=== PATIENT | female | born 1935 | race Hispanic/Latino ===

== ENCOUNTER 2017-05-01 10:45 | Observation (INO) | payer MEDICARE, BC ==
--- NOTE | 2017-05-01 11:10 | ED PDOC ---
Arrival/HPI - General Historian: Patient - History of Present Illness Time/Duration: 24 hours Symptom Onset: Gradual Symptom Course: Unchanged Quality: Cramping Activities at Onset: Rest - General Chief Complaint: Abdominal Pain Time Seen by Provider: 05/01/17 11:01 - History of Present Illness Narrative History of Present Illness (Text): 05/01/17 11:36 81yo F with PMHx including DVT s/p IVF filter, Paroxysmal A.Fib, Chronic Anemia , Thrombocytopenia, Left Breast CA s/p L Mastectomy here for evaluation of Nausea, vomiting and diarrhea that started yesterday. She states that she has had about 3 episodes of vomiting, and 3 episodes of diarrhea this morning and came to the hospital for further evaluation. Denies bloody or bilious emesis or diarrhea. Also c/o Mild lower abd pain. Denies any recent sick contacts. Denies F/C. No urinary symptoms. Ate cheese sandwich last night, denies eating any spoiled food. Patient lives alone. PMHx: DVT, Paroxysmal A.Fib, Chronic Anemia, Hx of GI bleeding, Thrombocytopenia , Left Breast CA, Arthritis PSHx: IVC Filter, L Mastectomy, Aortic Valve Replacement Social Hx: Lives alone in apartment. Denies Tobacco, Denies ETOH, Denies illicit drugs NKDA (Lexa Garibay) Past Medical History - Provider Review Nursing Documentation Reviewed: Yes - Infectious Disease Hx of Infectious Diseases: None - Tetanus Immunization Tetanus Immunization: Unknown - Cardiac Hx Cardiac Disorders: Yes Hx Cardiac Arrhythmia: Yes Other/Comment: AORTIC VALVE REPLACEMENT - Pulmonary Hx Respiratory Disorders: No - Neurological Hx Neurological Disorder: No - HEENT Hx HEENT Disorder: No - Renal Hx Renal Disorder: No - Endocrine/Metabolic Hx Endocrine Disorders: No - Hematological/Oncological Hx Blood Disorders: Yes Hx Anemia: Yes - Integumentary Hx Dermatological Disorder: No - Musculoskeletal/Rheumatological Hx Musculoskeletal Disorders: Yes Hx Arthritis: Yes - Gastrointestinal Hx Gastrointestinal Disorders: Yes (HX GI BLEED) - Genitourinary/Gynecological Hx Genitourinary Disorders: No - Psychiatric Hx Psychophysiologic Disorder: No Hx Substance Use: No - Surgical History Hx Mastectomy: Yes (LEFT) Hx Open Heart Surgery: Yes Hx Valve Replacement: Yes Other/Comment: IVC FILTER - Anesthesia Hx Anesthesia: Yes Hx Anesthesia Reactions: No Hx Malignant Hyperthermia: No - Suicidal Assessment Feels Threatened In Home Enviroment: No Family/Social History - Physician Review Nursing Documentation Reviewed: Yes Family/Social History: Unknown Family HX Smoking Status: Never Smoked Hx Alcohol Use: No Hx Substance Use: No Hx Substance Use Treatment: No Allergies/Home Meds Allergies/Adverse Reactions: Allergies No Known Allergies Allergy (Verified 05/01/17 10:58) Home Medications: Home Meds Medication Instructions Recorded Confirmed Warfarin Sodium [Coumadin] 0 mg PO DIN 09/17/14 05/01/17 Review of Systems - Physician Review All systems were reviewed & negative as marked: Yes - Review of Systems Constitutional: absent: Weight Change, Fevers Respiratory: Normal. absent: SOB, Cough Cardiovascular: absent: Chest Pain, Edema, Calf Pain Gastrointestinal: Abdominal Pain, Diarrhea, Nausea, Vomiting. absent: Hematochezia, Hematemesis Genitourinary Female: absent: Dysuria, Frequency Physical Exam Vital Signs Reviewed: Yes Temperature: Afebrile Blood Pressure: Normal Pulse: Tachycardic Respiratory Rate: Normal Appearance: Positive for: Well-Appearing, Non-Toxic, Comfortable Pain Distress: Mild Mental Status: Positive for: Alert and Oriented X 3 - Systems Exam Head: Present: Atraumatic, Normocephalic Extroacular Muscles: Present: EOMI Conjunctiva: Present: Normal Mouth: Present: Dry Respiratory/Chest: Present: Clear to Auscultation, Good Air Exchange. No: Accessory Muscle Use, Wheezes Cardiovascular: Present: Normal S1, S2 Abdomen: Present: Tenderness (mild lower abdominal pain), Normal Bowel Sounds. No: Distention, Peritoneal Signs, Rebound, Guarding Upper Extremity: Present: Normal Inspection, Normal ROM. No: Edema Lower Extremity: Present: CALF TENDERNESS (Right calf tenderness), Other (scaly skin bilateral lower extremities. Bilateral foot non-healing ulcers) Neurological: Present: GCS=15, Speech Normal Skin: Present: Warm, Dry Psychiatric: Present: Alert, Oriented x 3 Medical Decision Making ED Course and Treatment: 05/01/17 11:55 81yo F with N/V/D - CBC/CMP/Mg/Phos/Lipase - UA - PT/INR/PTT - Protonix - Zofran - IVF 05/01/17 12:08 - Labs wnl - WBC and Hb stable from previous - Awaiting UA - Awaiting Coags - Mild Hyperbilirubinemia noted 05/01/17 13:08 Upon reevaluation. Patient still with mild abd pain. - will obtain CT Abd/Pelvis w/ IV contrast 05/01/17 13:59 - UA with evidence of a UTI 05/01/17 14:56 - Rocephin given - Dr. Villegas discussed case with Dr. Stone, who agrees for admission and plan. - Discussed findings with patient. Who understands and agrees with plan. 05/01/17 15:38 CT - periportal edema noted. Possible hepatitis or Right Heart failure (Lani, Lexa) A 81 year old female with nausea, non-bilious, non-bloody vomiting and diarrhea. In agreement with resident note, which includes further HPI details. Patient was seen and evaluated with resident, came up with plan and treatment together. UA significant for uti. Patient was tachycardic on arrival and has had persistent vomiting in ED. CT negative for acute pathology. Case discussed with Dr. Stone, who agrees with admission for UTI and persistent vomiting. Antibiotics and ucx sent 05/01/17 15:46 (Luisa Villegas) - Lab Interpretations Lab Results: 05/01/17 11:30 05/01/17 11:30 Lab Results 05/01/17 12:56: Urine Color Yellow, Urine Appearance Clear, Urine pH 6.5, Ur Specific [place] 1.010, Urine Protein Negative, Urine Glucose (UA) Negative, Urine Ketones Negative, Urine Blood Trace-intact H, Urine Nitrate Positive H, Urine Bilirubin Negative, Urine Urobilinogen 0.2, Ur Leukocyte Esterase Moderate H, Urine RBC 0 - 2, Urine WBC 2 - 5, Ur Epithelial Cells 1 - 3, Urine Bacteria Many 05/01/17 12:00: PT 11.4, INR 1.06, APTT 26.7 05/01/17 11:30: Sodium 141, Potassium 4.0, Chloride 102, Carbon Dioxide 29, Anion Gap 14, BUN 11, Creatinine 0.7, Est GFR ( Amer) > 60, Est GFR (Non- Af Amer) > 60, Random Glucose 86, Calcium 9.6, Phosphorus 3.6, Magnesium 2.0, Total Bilirubin 1.4 H, AST 28, ALT 24, Alkaline Phosphatase 65, Total Protein 6.7, Albumin 4.0, Globulin 2.7, Albumin/Globulin Ratio 1.5, Lipase 112 05/01/17 11:30: WBC 3.1 L, RBC 4.00, Hgb 11.7 L, Hct 37.3, MCV 93.3, MCH 29.3, MCHC 31.4, RDW 14.1, Plt Count 76 L, MPV 9.7, Gran % 56.7, Lymph % (Auto) 30.1, [place] % (Auto) 10.7 H, Eos % (Auto) 1.9, Baso % (Auto) 0.6, Gran # 1.75, Lymph # 0.9 L, [place] # 0.3, Eos # 0.1, Baso # 0.02 - RAD Interpretation Radiology Orders: 05/01/17 12:37 ABD & PELVIS IV CONTRAST ONLY [CT] Stat - Medication Orders Current Medication Orders: Warfarin Sodium (Coumadin) 5 mg PO 1800 KHADRA PRN Reason: Protocol Discontinued Medications Sodium Chloride (Sodium Chloride 0.9%) 1,000 mls @ 999 mls/hr IV .Q1H1M STA Stop: 05/01/17 12:23 Last Admin: 05/01/17 11:49 Dose: 999 mls/hr Ceftriaxone Sodium (Rocephin 1 Gram Ivpb) 1 gm in 100 mls @ 200 mls/hr IVPB STAT STA PRN Reason: Protocol Stop: 05/01/17 15:16 Last Admin: 05/01/17 14:53 Dose: 200 mls/hr Iohexol (Omnipaque 350 100 Ml) Confirm Administered Dose 350 mg .ROUTE .STK-MED ONE Stop: 05/01/17 13:19 Ondansetron HCl (Zofran Inj) 4 mg IVP STAT STA Stop: 05/01/17 11:31 Last Admin: 05/01/17 11:49 Dose: 4 mg Pantoprazole Sodium (Protonix Inj) 40 mg IVP STAT STA Stop: 05/01/17 11:24 Last Admin: 05/01/17 11:49 Dose: 40 mg Phenazopyridine HCl (Pyridium) 100 mg PO STAT STA Stop: 05/01/17 14:39 Last Admin: 05/01/17 14:53 Dose: 100 mg - PA / CYBER INSTRUCTOR / Resident Statement / has reviewed & agrees with the documentation as recorded. /DO has examined the patient and agrees with the treatment plan. Disposition/Present on Arrival - Present on Arrival Any Indicators Present on Arrival: No History of DVT/PE: No History of Uncontrolled Diabetes: No Urinary Catheter: No History of Decub. Ulcer: No History Surgical Site Infection Following: None - Disposition Have Diagnosis and Disposition been Completed?: Yes Disposition Time: 14:59 Patient Plan: Admission - Disposition Diagnosis: UTI (urinary tract infection), Vomiting Disposition: HOSPITALIZED Patient Problems: Current Active Problems Problem Status Onset UTI (urinary tract infection) Acute Vomiting Acute Condition: GOOD
[2017-05-01] MEDS ORDERED: Sodium Chloride 0.9% 1,000 ML IV STA (11:23)
[2017-05-01 12:01] LABS: BASO # 0.02 K/mm3 (0.0-2.0); BASO % 0.6 % (0.0-3.0); EOS # 0.1 (0.0-0.7); EOS % 1.9 % (1.5-5.0); GRAN # 1.75 (1.4-6.5); GRAN % 56.7 % (50.0-68.0); HEMATOCRIT 37.3 % (36.0-48.0); LYMPH # 0.9 (1.2-3.4); LYMPH % 30.1 % (22.0-35.0); MEAN CELL VOLUME 93.3 fl (80.0-105.0); MEAN CORPUSCULAR HEMOGLOBIN 29.3 pg (25.0-35.0); MEAN CORPUSCULAR HGB CONC 31.4 g/dl (31.0-37.0); MEAN PLATELET VOLUME 9.7 fl (7.0-11.0); MONO # 0.3 (0.1-0.6); MONO % 10.7 % (1.0-6.0); RED CELL DISTRIBUTION WIDTH 14.1 % (11.5-14.5); WHITE BLOOD COUNT 3.1 10^3/ul (4.5-11.0)
[2017-05-01 12:04] LABS: ALB/GLOB RATIO 1.5 (1.1-1.8); ALKALINE PHOSPHATASE 65 U/L (38-133); ALT/SGPT 24 U/L (7-56); AST/SGOT 28 U/L (15-39); BILIRUBIN,TOTAL 1.4 mg/dL (0.2-1.3); BLOOD UREA NITROGEN 11 mg/dL (7-21); CALCIUM 9.6 mg/dL (8.4-10.5); CARBON DIOXIDE 29 mmol/L (21-33); CHLORIDE 102 mmol/L (98-107); GFR AFRICAN-AMERICAN > 60; GLUCOSE,RANDOM 86 mg/dL (70-110); LIPASE 112 U/L (23-300); PHOSPHOROUS 3.6 mg/dL (2.5-4.5); SODIUM 141 mmol/L (132-148); TOTAL PROTEIN 6.7 g/dL (5.8-8.3)
[2017-05-01 12:28] LABS: INR 1.06 (0.93-1.08); PARTIAL THROMBOPLASTIN TIME 26.7 Seconds (23.7-30.8)
[2017-05-01 12:59] LABS: PH,URINE 6.5 (4.7-8.0); URINE BILIRUBIN NEGATIVE (NEGATIVE); URINE BLOOD TRACE-INTACT (NEGATIVE); URINE GLUCOSE (UA) NEGATIVE (NEGATIVE); URINE KETONE NEGATIVE (NEGATIVE); URINE LEUKOCYTE ESTERASE MODERATE Leu/uL (NEGATIVE); URINE PROTEIN NEGATIVE mg/dL (<30 mg/dL); URINE UROBILINOGEN 0.2 E.U./dL (<1 E.U./dL)
[2017-05-01 13:03] LABS: URINE APPEARANCE CLEAR (CLEAR); URINE COLOR YELLOW (YELLOW)
[2017-05-01 13:17] LABS: URINE BACTERIA MANY (NEG); URINE RBC 0 - 2 /hpf (0-2)
[2017-05-01] MEDS ORDERED: Iohexol 350 MG/100 ML VIAL ONE (13:18)
[2017-05-01] MEDS ORDERED: Ciprofloxacin 400mg/200ml D5W 400 MG/200 ML BAG IVPB STA (14:14)
[2017-05-01] MEDS ORDERED: cefTRIAXone 1 gm 1 GM/100 ML BAG IVPB STA (14:47)
--- NOTE | 2017-05-01 15:16 | CT ---
PROCEDURE: CT Abdomen and Pelvis with contrast HISTORY: abdominal pain COMPARISON: None. TECHNIQUE: Contrast dose: 100 cc of Omni 350 Radiation dose: Total exam DLP = 355 mGy-cm. This CT exam was performed using one or more of the following dose reduction techniques: Automated exposure control, adjustment of the mA and/or kV according to patient size, and/or use of iterative reconstruction technique. FINDINGS: LOWER THORAX: Unremarkable. LIVER: Periportal edema is seen throughout the liver. This is most commonly due to right heart failure. This can also be seen in hepatitis. Clinical correlation is suggested GALLBLADDER AND BILE DUCTS: Gallbladder removed PANCREAS: Unremarkable. No gross lesion or ductal dilatation. SPLEEN: Unremarkable. ADRENALS: Unremarkable. No mass. KIDNEYS AND URETERS: Unremarkable. No hydronephrosis. No solid mass. VASCULATURE: A caval filter is present BOWEL: Unremarkable. No obstruction. No gross mural thickening. APPENDIX: Normal appendix. PERITONEUM: A small amount of ascites is seen in the pelvis LYMPH NODES: Unremarkable. No enlarged lymph nodes. BLADDER: A catheter is seen in the bladder REPRODUCTIVE: Unremarkable. BONES: No acute fracture. OTHER FINDINGS: None. IMPRESSION: Periportal edema is seen throughout the liver. This is most commonly due to right heart failure. This can also be seen in hepatitis. Clinical correlation is suggested
--- NOTE | 2017-05-01 19:13 | CARD ---
APPROVED REPORT EKG Measurement Heart [id number] <Conclusion> Sinus tachycardia Right atrial enlargement Borderline ECG
[2017-05-01] MEDS ORDERED: Sodium Chloride 0.45% 1,000 ML IV SCH (19:15)
[2017-05-01 21:36] VITALS: BMI 20.9
[2017-05-01] MEDS ORDERED: Pneumococcal 23-Valent Vaccine IM ONE (21:37)
--- NOTE | 2017-05-02 05:49 | HP ---
HISTORY OF PRESENT ILLNESS: I was called by the ER to take care of Edilia for a bad urinary tract infection. She is not doing well. I saw her in her room 577, bed 2 this evening. She is an 81-year-old female, who came in for nausea, vomiting, and diarrhea; she had about 3 episodes and she came to the emergency room for further evaluation. Mild lower abdominal pain. Had no urinary symptoms. She ate a cheese sandwich. PAST MEDICAL HISTORY: DVT, paroxysmal atrial fibrillation, chronic anemia, history of GI bleeding, thrombocytopenia, left breast cancer, arthritis. PAST SURGICAL HISTORY: IVC filter, mastectomy left, aortic valve replacement. SOCIAL HISTORY: She lives alone in an apartment. Denies smoking, drinking or drugs. ALLERGIES: NO KNOWN DRUG ALLERGIES. FAMILY HISTORY: There is hypertension in the family. She has arthritis. She feels a little bit weak. She is very thin and frail. She had left mastectomy. MEDICATIONS: She takes Coumadin. REVIEW OF SYSTEMS: No acute vision changes or hearing changes. No sore throat. No chest pain. No palpitation, no calf pain, no edema. No shortness of breath. No cough. No sputum. No anxiety. No depression. She does have abdominal pain, diarrhea, nausea, and vomiting. She denies any problems urinating. No nervousness, no anxiety. PHYSICAL EXAMINATION: VITAL SIGNS: She has 98.7 temperature, 111 pulse, 135/89 blood pressure, 16 respiratory rate, 100% O2 sat on room air. HEENT: Head atraumatic, normocephalic, extraocular muscles are intact. Throat is moist. NECK: Supple. HEART: Regular rate. Normal S1 and S2. LUNGS: Decreased breath sounds, clear to auscultation. No wheezes, no rhonchi, no rales. ABDOMEN: Mild middle lower abdominal tenderness, normal bowel sounds. No distention, no guarding, no rebound. EXTREMITIES: No edema. She has right calf tenderness. Bilateral foot, nonhealing ulcers. I will get podiatry and see her. GCS is 15. SKIN: Warm and dry except for the foot ulcers. NEUROLOGICAL: Alert and oriented x3. She is comfortable in bed at this time. LABORATORY DATA: She has a urine which is positive for nitrites, moderate leukocytes, many bacteria. 141 sodium, potassium 4, BUN 11, creatinine 0.7, GFR greater than 60, sugar is 86. Calcium is 9.6, phosphorus is 3.6, magnesium 2, total bilirubin is 1.4. AST is 28, ALT is 24, alk phos 65, total protein 6.7, albumin is 4. Lipase 112. INR is 1.06. White count is low at 3.1, hemoglobin 11.7, hematocrit 37.3, platelets are 76 low. IMPRESSION: She had a CAT scan of the abdomen and pelvis, periportal edema seen throughout the liver, could be with hepatitis or due to right heart failure. We will do hepatitis screening. She will be on IV fluids, Coumadin, Protonix, Rocephin, and Zofran. She will have a consult with podiatry. We will check her labs tomorrow. Hopefully, she will do well. She is here for UTI, bilateral foot ulcers, nausea and vomiting. Khalif Stone DO
[2017-05-02] MEDS ORDERED: Pantoprazole 40mg/100ml IVPB 40 MG/100 ML BAG IVPB SCH (06:00)
[2017-05-02 07:13] LABS: INR 1.07 (0.93-1.08)
[2017-05-02 07:14] LABS: HEMATOCRIT 39.5 % (36.0-48.0); MEAN CELL VOLUME 93.2 fl (80.0-105.0); MEAN CORPUSCULAR HGB CONC 31.1 g/dl (31.0-37.0); MEAN PLATELET VOLUME 10.1 fl (7.0-11.0); RED CELL DISTRIBUTION WIDTH 14.2 % (11.5-14.5); WHITE BLOOD COUNT 4.2 10^3/ul (4.5-11.0)
[2017-05-02 07:30] LABS: ALB/GLOB RATIO 1.3 (1.1-1.8); ALKALINE PHOSPHATASE 62 U/L (38-133); ALT/SGPT 15 U/L (7-56); AST/SGOT 33 U/L (15-39); BILIRUBIN,TOTAL 1.4 mg/dL (0.2-1.3); BLOOD UREA NITROGEN 6 mg/dL (7-21); CALCIUM 8.7 mg/dL (8.4-10.5); CARBON DIOXIDE 25 mmol/L (21-33); CHLORIDE 108 mmol/L (98-107); GFR AFRICAN-AMERICAN > 60; GLUCOSE,RANDOM 75 mg/dL (70-110); POTASSIUM 4.3 mmol/L (3.6-5.0); SODIUM 140 mmol/L (132-148); TOTAL PROTEIN 6.1 g/dL (5.8-8.3)
[2017-05-02 09:05] VITALS: RESP 20
--- NOTE | 2017-05-02 09:48 | RAD ---
HISTORY: r/o chf COMPARISON: 09/25/2016 FINDINGS: LUNGS: No active pulmonary disease. PLEURA: No significant pleural effusion identified, no pneumothorax apparent. CARDIOVASCULAR: Normal. OSSEOUS STRUCTURES: No significant abnormalities. VISUALIZED UPPER ABDOMEN: Normal. OTHER FINDINGS: None. IMPRESSION: No active disease.
[2017-05-02] MEDS ORDERED: Ammonium Lactate 12% Lotion (225 g) EXT SCH (10:00)
[2017-05-02] MEDS ORDERED: cefTRIAXone 1 gm 1 GM/100 ML BAG IVPB SCH (10:00)
--- NOTE | 2017-05-02 10:17 | DS ---
HISTORY OF PRESENT ILLNESS: She is resting comfortably in bed. She is very hungry this morning. She slept well. She tells me she can walk. Awaiting for Podiatry to look at her feet. We are checking labs this morning. His hepatitis panel and INR pending. She is comfortable, in no acute distress, smiling in bed, better than when she came in. She came in for UTI, nausea, vomiting, and foot ulcer. PHYSICAL EXAMINATION: VITAL SIGNS: She has 97 temp, 75 pulse, 109/70 blood pressure, 18 respiratory rate, 99% sat on room air. HEENT: Head is atraumatic, normocephalic. Throat is moist. NECK: Supple. HEART: Regular. LUNGS: Decreased breath sounds, but clear to auscultation. ABDOMEN: Soft, nontender. Positive bowel sounds. No guarding. No rebound. No CVA tenderness. No palpable masses. EXTREMITIES: No edema of the feet. Needs Podiatry evaluation. MEDICATIONS: She is currently on Coumadin, Protonix, Rocephin, IV fluids, and Zofran. She is not nauseous any more. LABORATORY DATA: She has a 4.2 white count, 12.3 hemoglobin, 39.5 hematocrit with 78 platelets, little bit low. INR is 1.17. She has 141 sodium, potassium is 4, BUN 11, creatinine 0.7. GFR is greater than 60. Sugar is 86. Calcium is 9.6. Phosphorus 3.6. Magnesium is 2. Total bili is 1.4. AST is 20, ALT 24, alk phos 55, total protein 6.7, albumin 4, globulin 2.7, lipase 112. Urine showed moderate leukocytes and many bacteria. No back on the urine. His urine culture is pending. ASSESSMENT AND PLAN: Awaiting for Podiatry to come take a look at her and physical therapy take a look at her and then increase her diet. Physical therapy said she can walk and be safe and Podiatry said she does not need anymore repair of her feet. I will change her to tablets and discharge her for outpatient house calls and care. If they find that we need to keep her on inpatient today and continue therapy in hospital. Await for Podiatry and physical therapy and see if she can eat. Khalif Stone DO [place]
--- NOTE | 2017-05-02 14:02 | CP.PCM.CON ---
<Alejandro Onofre - Last Filed: 05/02/17 13:56> History of Present Illness - History of Present Illness History of Present Illness: 80 y/o female patient was seen at bedside concerning bilateral leg scaling and xerosis with attending Dr. Lowe. The patient has an extensive medical history that includes DVT, chronic atrial fibrillation, history of breast cancer , and chronic anemia, as well as dementia. She denies of any pain to lower extremities. Patient also complains of elongated toenails x10. Patient denies n/ f/v/d/c/sob. Past Patient History - Infectious Disease Hx of Infectious Diseases: None - Tetanus Immunizations Tetanus Immunization: Unknown - Past Social History Smoking Status: Never Smoked - CARDIAC Hx Cardiac Disorders: Yes (ivc filter hx dvt) Hx Hypertension: Yes - PULMONARY Hx Respiratory Disorders: No - NEUROLOGICAL Hx Neurological Disorder: No - HEENT Hx HEENT Problems: No - RENAL Hx Chronic Kidney Disease: No - ENDOCRINE/METABOLIC Hx Endocrine Disorders: No - HEMATOLOGICAL/ONCOLOGICAL Hx Blood Disorders: Yes (thrombocytopenia) Hx Anemia: Yes (blood transfusion) Hx Cancer: Yes (left breast ca with lymph nodes) Hx Chemotherapy: (pt denies chemo and radiation) - INTEGUMENTARY Hx Dermatological Problems: Yes Other/Comment: cellulitis. ble +1 edema brown dry flakey dry discolored skin to lowr legs and feet, crooked toes both feet, small pad under ball of left ft for protection no wound, mid chest healed surgical scar - MUSCULOSKELETAL/RHEUMATOLOGICAL Hx Arthritis: Yes - GASTROINTESTINAL Hx Gastrointestinal Disorders: Yes (HX GI BLEED, weight loss) - GENITOURINARY/GYNECOLOGICAL Hx Genitourinary Disorders: Yes Hx Urinary Tract Infection: Yes - PSYCHIATRIC Hx Substance Use: No - SURGICAL HISTORY Hx Mastectomy: Yes (LEFT) Hx Open Heart Surgery: Yes Hx Valve Replacement: Yes Other/Comment: IVC FILTER - ANESTHESIA Hx Anesthesia: Yes Hx Anesthesia Reactions: No Hx Malignant Hyperthermia: No Meds Allergies/Adverse Reactions: Allergies Allergy/AdvReac Type Severity Reaction Status Date / Time No Known Allergies Allergy Verified 05/01/17 10:58 - Medications Medications: Current Medications Ceftriaxone Sodium (Rocephin 1 Gram Ivpb) 1 gm in 100 mls @ 100 mls/hr IVPB DAILY KHADRA PRN Reason: Protocol Last Admin: 05/02/17 11:18 Dose: 100 mls/hr Lactic Acid (Lac-Hydrin 12% Lotion (225 G)) 0 gm EXT BID KHADRA Last Admin: 05/02/17 11:17 Dose: 1 appl Ondansetron HCl (Zofran Inj) 4 mg IVP Q6H PRN PRN Reason: Nausea/Vomiting Pantoprazole Sodium (Protonix Ec Tab) 40 mg PO 0600 KHADRA Warfarin Sodium (Coumadin) 5 mg PO 1800 KHADRA PRN Reason: Protocol Last Admin: 05/01/17 18:54 Dose: 5 mg Physical Exam - Constitutional Appears: Well, Non-toxic, No Acute Distress - Head Exam Head Exam: ATRAUMATIC - Extremities Exam Additional comments: Bilateral lower extremity exam DERM: No open wound is noted to skin bilateral lower extremities. Dry skin scaling noted to legs bilaterally consistent with Xerosis, elongated toenails noted to hallux and 2nd digits bilaterally. No erythema is noted, No drainage is noted, no sign of acute infections is noted VASC: Pedal pulses non-palpable bilaterally; +2 edema noted at anterior aspects of bilateral legs; normal temperature gradient noted b/l NEURO: Light touch and protective sensation grossly intact - Neurological Exam Neurological exam: Alert, Oriented x3 - Psychiatric Exam Psychiatric exam: Normal Affect, Normal Mood - Skin Skin Exam: Normal Color, Warm Results - Vital Signs Recent Vital Signs: Last Vital Signs Temp 97 F L 05/02/17 08:00 Pulse 74 05/02/17 08:00 Resp 20 05/02/17 08:00 BP 101/56 L 05/02/17 08:00 Pulse Ox 96 05/02/17 08:00 - Labs Result Diagrams: 05/02/17 06:30 05/02/17 06:30 Labs: Laboratory Results - last 24 hr 05/02/17 05/02/17 05/02/17 06:30 06:30 06:30 WBC 4.2 L D RBC 4.24 Hgb 12.3 Hct 39.5 MCV 93.2 MCH 29.0 MCHC 31.1 RDW 14.2 Plt Count 78 L MPV 10.1 PT 11.6 INR 1.07 Sodium 140 Potassium 4.3 Chloride 108 H Carbon Dioxide 25 Anion Gap 11 BUN 6 L Creatinine 0.6 Est GFR ( Amer) > 60 Est GFR (Non-Af Amer) > 60 Random Glucose 75 Calcium 8.7 Total Bilirubin 1.4 H AST 33 ALT 15 Alkaline Phosphatase 62 Total Protein 6.1 Albumin 3.5 Globulin 2.7 Albumin/Globulin Ratio 1.3 Assessment & Plan - Assessment and Plan (Free Text) Assessment: 80 y/o female patient with chronic venous stasis to bilateral lower extremities with accompanying Xerosis and scaling of skin to legs Plan: Patient was seen and evaluated at bedside with attending, Dr. Lowe Labs and vitals were reviewed Ordered Lachydrin cream Continue receiving IV antibiotics, as per ID recommendations Elongated toenails were cut with a large nail nipper upto level of normal length without any incident x4 Podiatry to continue to follow while patient remains in house <Tayler Lowe - Last Filed: 05/13/17 19:32> Results - Vital Signs Recent Vital Signs: Last Vital Signs Temp 98.4 F 05/02/17 16:00 Pulse 72 05/02/17 16:00 Resp 20 05/02/17 16:00 BP 91/54 L 05/02/17 16:00 Pulse Ox 97 05/02/17 16:00 - Labs Result Diagrams: 05/02/17 06:30 05/02/17 06:30 Attending/Attestation - Attestation I have personally seen and examined this patient.: Yes I have fully participated in the care of the patient.: Yes
[2017-05-02 16:47] VITALS: BP 91/54; PULSE 72; TEMP 98.4; O2SAT 97
[2017-05-03] MEDS ORDERED: Pantoprazole 40 mg EC Tab PO SCH (06:00)
[2017-05-03] MEDS ORDERED: Tmp-Smz 800 mg-160 mg DS Tab PO SCH (10:00)
== END 2017-05-02 17:26 | disposition home or self-care (01) ==
LOC: ED 10:45 → INTOOBSV 14:45 → ERH 14:45 → 5RSO 17:01
PROVIDERS: ADMIT Family Medicine; ATTEND Family Medicine
DX: N39.0 Urinary tract infection, site not specified (principal); L97.519 Non-pressure chronic ulcer of other part of right foot with unspecified severity; L97.529 Non-pressure chronic ulcer of other part of left foot with unspecified severity; I48.0 Paroxysmal atrial fibrillation; L60.8 Other nail disorders; D69.6 Thrombocytopenia, unspecified; D64.9 Anemia, unspecified; M19.90 Unspecified osteoarthritis, unspecified site; L85.3 Xerosis cutis; I87.8 Other specified disorders of veins; R11.2 Nausea with vomiting, unspecified; F03.90 Unspecified dementia, unspecified severity, without behavioral disturbance, psychotic disturbance, mood disturbance, and anxiety; Z85.3 Personal history of malignant neoplasm of breast; Z90.12 Acquired absence of left breast and nipple; Z95.2 Presence of prosthetic heart valve; Z86.718 Personal history of other venous thrombosis and embolism; Z79.01 Long term (current) use of anticoagulants
CPT/HCPCS: 11719; 36415; 71010; 74177; 80053; 81001; 83690; 83735; 84100; 85025; 85027; 85610; 85730; 87086; 93005; 96361; 96365; 96375; 96376; 97116; 97161; 99285; C9113; G0378; G8978; G8979; J0696; J2405; J7030; J7040; Q9967

== ENCOUNTER 2017-06-14 15:39 | Inpatient (IN) | payer MEDICARE, BC ==
--- NOTE | 2017-06-14 15:55 | ED PDOC ---
Arrival/HPI - General Chief Complaint: Lower Extremity Problem/Injury Time Seen by Provider: 06/14/17 15:41 Historian: Patient - History of Present Illness Narrative History of Present Illness (Text): 06/14/17 15:54 Information was obtained from patient and her friend. Patient is alert and oriented x 1 (place). This 81 yo F with PMHx including DVT s/p IVF filter, Paroxysmal A.Fib, Chronic Anemia, Thrombocytopenia, Left Breast CA s/p L Mastectomy, presents to this emergency department with her friend complaining of palpitation. Patient stated she was seen by Dr. Pritchett for her regular doctor office visit today. Friend stated Dr. Pritchett recommended patient to come to emergency depart for evaluation of tachycardia. Patient admits decreased appetite, and she is not drinking enough fluids. Patient also noted she has not been taking her medication for "a long time", including her Coumadin. Dr. Pritchett told patient that she hast lost weight. Patient admits one episode of abdominal pain 2-3 days ago. She stated she had a watery BM this morning. Patient lives alone. Patient denies shortness of breast, chest pain, abdominal pain, urinary symptoms , dizziness, YOUNG, or abnormal gait. Dr. Pritchett, PMD Dr. Lowe, Quality Assurance Inspector Dr. Syed, Surgery Time/Duration: Other (see hpi) Context: Home Past Medical History - Provider Review Nursing Documentation Reviewed: Yes - Infectious Disease Hx of Infectious Diseases: None - Tetanus Immunization Tetanus Immunization: Unknown - Cardiac Hx Cardiac Disorders: Yes (ivc filter hx dvt) Hx Hypertension: Yes - Pulmonary Hx Respiratory Disorders: No - Neurological Hx Neurological Disorder: No - HEENT Hx HEENT Disorder: No - Renal Hx Renal Disorder: No - Endocrine/Metabolic Hx Endocrine Disorders: No - Hematological/Oncological Hx Blood Disorders: Yes (thrombocytopenia) Hx Anemia: Yes (blood transfusion) Hx Cancer: Yes (left breast ca with lymph nodes) Hx Chemotherapy: (pt denies chemo and radiation) - Integumentary Hx Dermatological Disorder: Yes Other/Comment: cellulitis. ble +1 edema - Musculoskeletal/Rheumatological Hx Musculoskeletal Disorders: Yes Hx Arthritis: Yes Other/Comment: walks with cane - Gastrointestinal Hx Gastrointestinal Disorders: Yes (HX GI BLEED, weight loss) - Genitourinary/Gynecological Hx Genitourinary Disorders: Yes Hx Urinary Tract Infection: Yes - Psychiatric Hx Psychophysiologic Disorder: No Hx Substance Use: No - Surgical History Hx Mastectomy: Yes (LEFT) Hx Open Heart Surgery: Yes Hx Valve Replacement: Yes Other/Comment: IVC FILTER - Anesthesia Hx Anesthesia: Yes Hx Anesthesia Reactions: No Hx Malignant Hyperthermia: No - Suicidal Assessment Feels Threatened In Home Enviroment: No Family/Social History - Physician Review Nursing Documentation Reviewed: Yes Family/Social History: Other (non contributory) Smoking Status: Never Smoked Hx Alcohol Use: No Hx Substance Use: No Hx Substance Use Treatment: No Allergies/Home Meds Allergies/Adverse Reactions: Allergies No Known Allergies Allergy (Verified 06/14/17 15:47) Home Medications: Home Meds Medication Instructions Recorded Confirmed No Known Home Med 06/14/17 06/14/17 Review of Systems - Review of Systems Constitutional: Normal. absent: Fatigue, Weight Change, Fevers Eyes: Normal ENT: Normal Respiratory: Normal Cardiovascular: Palpitations Gastrointestinal: Normal Genitourinary Female: Normal Musculoskeletal: Normal Skin: Normal Neurological: Normal Endocrine: Normal Hemo/Lymphatic: Normal Psychiatric: Normal Physical Exam Vital Signs Temp Pulse Resp BP Pulse Ox 06/14/17 18:21 89 16 114/72 98 06/14/17 16:58 98.7 F 06/14/17 15:50 98.9 F 145 H 18 138/86 97 Temperature: Afebrile Blood Pressure: Normal Pulse: Tachycardic Respiratory Rate: Normal Appearance: Positive for: Well-Appearing, Non-Toxic, Comfortable, Unkept Pain Distress: None Mental Status: Positive for: other (AAO x 1) - Systems Exam Head: Present: Atraumatic, Normocephalic Pupils: Present: PERRL Extroacular Muscles: Present: EOMI Conjunctiva: Present: Normal Mouth: Present: Moist Mucous Membranes Pharnyx: Present: Normal Nose (Internal): Present: Normal Inspection Neck: Present: Normal Range of Motion. No: Meningeal Signs Respiratory/Chest: Present: Clear to Auscultation, Good Air Exchange. No: Respiratory Distress, Accessory Muscle Use Cardiovascular: Present: Normal S1, S2, Tachycardic. No: Murmurs, Bradycardic, Rub, Gallop, Muffled Abdomen: Present: Normal Bowel Sounds, Scars. No: Tenderness, Distention, Peritoneal Signs, Rebound, Guarding Back: Present: Normal Inspection. No: CVA Tenderness Upper Extremity: Present: Normal Inspection, Normal ROM, NORMAL PULSES (but, tachycardia), Neurovascularly Intact, Capillary Refill < 2s. No: Cyanosis, Edema Lower Extremity: Present: Edema (trace edema), CALF TENDERNESS (right calf, mild tenderness), NORMAL PULSES, Normal ROM, Swelling, Neurovascularly Intact, Capillary Refill < 2 s. No: Temperature Abnormalties Neurological: Present: GCS=15, CN II-XII Intact, Speech Normal, Motor Func Grossly Intact, Normal Sensory Function, Normal Cerebellar Funct, Gait Normal Skin: Present: Warm, Dry, Normal Color, Other (b/l foot and lower legs mycosis) . No: Rashes Psychiatric: Present: Alert, Oriented x 3, Normal Insight, Normal Concentration Medical Decision Making ED Course and Treatment: 06/14/17 16:26 EKG: A-flutter @ 145 bpm 06/14/17 17:39 EKG: A-flutter @ 136 06/14/17 11:[address] Barahona regarding patient arrhythmia, with a-flutter tachycardia. We reviewed labs result, and Venous doppler which demonstrates Right leg DVT, unchanged from previews. Patient complaining of mild shortness of breath earlier today. Patient was given Lovenox. She agrees with admission for Telemetry. 06/15/17 00:28 Patient agreed with admission. Re-evaluation Time: 00:25 Reassessment Condition: Re-examined, Improving,but remains with symptoms - Lab Interpretations Lab Results: 06/14/17 16:15 06/14/17 16:15 Lab Results 06/14/17 16:15: Sodium 141, Chloride 102, Potassium 4.1, Carbon Dioxide 29, Anion Gap 14, BUN 9, Creatinine 0.7, Est GFR ( Amer) > 60, Est GFR (Non- Af Amer) > 60, Random Glucose 88, Calcium 9.4, Phosphorus 3.7, Magnesium 2.1, Total Bilirubin 1.1, AST 27, ALT 24, Alkaline Phosphatase 75, Lactate Dehydrogenase 815 H, Total Creatine Kinase 70, Troponin I < 0.01 D, NT-Pro-B Natriuret Pep 579 H, Total Protein 6.6, Albumin 3.9, Globulin 2.7, Albumin/ Globulin Ratio 1.4 06/14/17 16:15: pO2 50, VBG pH 7.41, VBG pCO2 50.0, VBG HCO3 31.7 H, VBG Total CO2 33.2 H, VBG O2 Sat (Calc) 89.7 H, VBG Base Excess 5.8 H, VBG Potassium 4.1, Sodium 139.0, Chloride 105.0, Glucose 88, Lactate 1.2, FiO2 21.0, Venous Blood Potassium 4.1 06/14/17 16:15: PT 11.4, INR 1.06, APTT 25.8 06/14/17 16:15: WBC 4.1 L, RBC 4.07, Hgb 12.2, Hct 38.5, MCV 94.6, MCH 30.0, MCHC 31.7, RDW 14.5, Plt Count 72 L, MPV 9.6, Gran % 59.4, Lymph % (Auto) 27.7, [place] % (Auto) 10.7 H, Eos % (Auto) 1.5, Baso % (Auto) 0.7, Gran # 2.45, Lymph # 1.1 L, [place] # 0.4, Eos # 0.1, Baso # 0.03 I have reviewed the lab results: Yes Interpretation: Abnormal lab values - RAD Interpretation Narrative RAD Interpretations (Text): 06/14/17 19:10 Accession No. : [id number] Patient Name / ID : NING RICHARDS / [id number] Exam Date : 06/14/2017 16:35:46 ( Approved ) Study Comment : Sex / Age : F / 81Y Creator : David Wilson MD Dictator : David Wilson MD Puncher And Fastener : Gig Tender : David Wilson MD Approver2 : Report Date : 06/14/2017 16:51:53 My Comment : HISTORY: Sepsis Patient COMPARISON: 05/02/2017 FINDINGS: LUNGS: No active pulmonary disease. PLEURA: No significant pleural effusion identified, no pneumothorax apparent. CARDIOVASCULAR: Normal. OSSEOUS STRUCTURES: No significant abnormalities. VISUALIZED UPPER ABDOMEN: Normal. OTHER FINDINGS: None. IMPRESSION: No active disease. 06/14/17 22:28 Formerly [facility] Division of Radiology [address] [place] [address] Tel. no. Patient Name: SUSIE BARCLAY Pt. Address: [address] [place] [address]. Rec #: [id number] [place] [address]: Matt Magana PA-C Pt Order Location: ED : 1935 Female Age: 81 Order #: [id number] Reason for exam: SOB CT Scan ANGIO CHEST PE PROTOCOL Exam Date: 06/14/17 This imaging exam was performed at [facility] ADDENDUM Addendum created by Jonas Mckenzie MD on 06/14/2017 10:10:59 PM EDT Correction: "Posterior to the upper pole the left kidney, there is a 1.7 x 1.2 cm hypodense nodular fluid collection density which appears to be separate of the left kidney.", should say,"Posterior to the upper pole the left kidney, there is a 1.7 x 1.2 cm hypodense fluid collection or cyst." Initial report created on 06/14/2017 9:58:26 PM EDT EXAM: CT Angiography Chest With Intravenous Contrast EXAM DATE/TIME: 06/14/2017 8:09 PM CLINICAL HISTORY: The patient age is 81 years old and is female; Signs and symptoms; Shortness of breath; Additional info: SOB Facility exam id and description: Ct angchestpe angio chest pe protocol TECHNIQUE: Axial computed tomographic angiography images of the chest with intravenous contrast using pulmonary embolism protocol. All CT scans at this facility use one or more dose reduction techniques, viz.: automated exposure control; ma/kV adjustment per patient size (including targeted exams where dose is matched to indication; i.e. head); or iterative reconstruction technique. MIP reconstructed images were created and reviewed. Coronal and sagittal reformatted images were created and reviewed. CONTRAST: 80 mL of OMNI 350 administered intravenously. COMPARISON: CT - CHEST W/O CONTRAST 06/14/2016 5:24:36 PM FINDINGS: Pulmonary arteries: There is dilatation of the pulmonary trunk and main pulmonary arteries, suggestive of pulmonary artery hypertension. The main pulmonary trunk, right/left main pulmonary arteries, and the proximal lobar branches demonstrate no definite intraluminal filling defect to suggest pulmonary embolism. Aorta: Atherosclerotic changes are identified of the thoracic aorta. No thoracic aortic aneurysm. Lungs: Mild patchy atelectatic changes are identified within the right middle lobe, lingula, and both lower lobes. There is a small peripheral consolidation within the lateral aspect of the left upper lobe on series 3 image 48. This is suggestive of atelectatic change or infiltrate. Biapical consolidations are identified, likely due to parenchymal scarring. Pleural space: No significant effusion. No pneumothorax. Heart: No cardiomegaly. No significant pericardial effusion. No evidence of RV dysfunction. Bones/joints: There is increased kyphosis of the thoracic spine with moderate dextroscoliosis. Midline sternotomy wires are identified. Lymph nodes: No enlarged lymph nodes. Gallbladder and bile ducts: Cholecystectomy clips are identified. Kidneys and ureters: Posterior to the upper pole the left kidney, there is a 1.7 x 1.2 cm hypodense nodular fluid collection density which appears to be separate of the left kidney. This is new compared to the previous CT. IMPRESSION: 1. There is dilatation of the pulmonary trunk and main pulmonary arteries, suggestive of pulmonary artery hypertension. 2. No acute pulmonary embolism. 3. Mild patchy atelectatic changes are identified within the right middle lobe, lingula, and both lower lobes. 4. There is a small peripheral consolidation within the lateral aspect of the left upper lobe on series 3 image 48. This is suggestive of atelectatic change or infiltrate, and has mildly progressed. Biapical consolidations are identified, likely due to parenchymal scarring, which have also progressed. 5. Posterior to the upper pole the left kidney, there is a 1.7 x 1.2 cm hypodense nodular fluid collection density which appears to be separate of the left kidney. This is new compared to the previous CT. Nonemergent ultrasonography is recommended. 6. Additional CT findings described above. Addendum Dictated By: Jonas Toribio MD Addendum Dictated Date Time:06/14/1701/24/2210 Addendum Signed by:Jonas Toribio MD Addendum signed Date Time: 06/14/172209 Addendum Transcribed By: ELIZABETH Addendum Transcribed Date Time: 06/14/1701/24/2210 RADHA/GORDO EXAM: CT Angiography Chest With Intravenous Contrast EXAM DATE/TIME: 06/14/2017 8:09 PM CLINICAL HISTORY: The patient age is 81 years old and is female; Signs and symptoms; Shortness of breath; Additional info: SOB Facility exam id and description: Ct replaced by [facility] angio chest pe protocol TECHNIQUE: Axial computed tomographic angiography images of the chest with intravenous contrast using pulmonary embolism protocol. All CT scans at this facility use one or more dose reduction techniques, viz.: automated exposure control; ma/kV adjustment per patient size (including targeted exams where dose is matched to indication; i.e. head); or iterative reconstruction technique. MIP reconstructed images were created and reviewed. Coronal and sagittal reformatted images were created and reviewed. CONTRAST: 80 mL of OMNI 350 administered intravenously. COMPARISON: CT - CHEST W/O CONTRAST 06/14/2016 5:24:36 PM FINDINGS: Pulmonary arteries: There is dilatation of the pulmonary trunk and main pulmonary arteries, suggestive of pulmonary artery hypertension. The main pulmonary trunk, right/left main pulmonary arteries, and the proximal lobar branches demonstrate no definite intraluminal filling defect to suggest pulmonary embolism. Aorta: Atherosclerotic changes are identified of the thoracic aorta. No thoracic aortic aneurysm. Lungs: Mild patchy atelectatic changes are identified within the right middle lobe, lingula, and both lower lobes. There is a small peripheral consolidation within the lateral aspect of the left upper lobe on series 3 image 48. This is suggestive of atelectatic change or infiltrate. Biapical consolidations are identified, likely due to parenchymal scarring. Pleural space: No significant effusion. No pneumothorax. Heart: No cardiomegaly. No significant pericardial effusion. No evidence of RV dysfunction. Bones/joints: There is increased kyphosis of the thoracic spine with moderate dextroscoliosis. Midline sternotomy wires are identified. Lymph nodes: No enlarged lymph nodes. Gallbladder and bile ducts: Cholecystectomy clips are identified. Kidneys and ureters: Posterior to the upper pole the left kidney, there is a 1.7 x 1.2 cm hypodense nodular fluid collection density which appears to be separate of the left kidney. This is new compared to the previous CT. IMPRESSION: 1. There is dilatation of the pulmonary trunk and main pulmonary arteries, suggestive of pulmonary artery hypertension. 2. No acute pulmonary embolism. 3. Mild patchy atelectatic changes are identified within the right middle lobe, lingula, and both lower lobes. 4. There is a small peripheral consolidation within the lateral aspect of the left upper lobe on series 3 image 48. This is suggestive of atelectatic change or infiltrate, and has mildly progressed. Biapical consolidations are identified, likely due to parenchymal scarring, which have also progressed. 5. Posterior to the upper pole the left kidney, there is a 1.7 x 1.2 cm hypodense nodular fluid collection density which appears to be separate of the left kidney. This is new compared to the previous CT. Nonemergent ultrasonography is recommended. 6. Additional CT findings described above. Dictated By: Jonas Mckenzie MD, MD Dictated Date/Time: 06/14/172157 Signed By: Jonas Toribio MD Date Signed: 2157 Transcribed By: ELIZABETH Transcribe Date/Time : 06/14/172157 RADHA/GORDO 06/14/17 22:33 Formerly [facility] Division of Radiology [address] [place] [address] Tel. no. Patient Name: SUSIE BARCLAY Pt. Address: [address] [place] [address] Rec #: [id number] [place] [address]: Matt Magana PA-C Pt Order Location: ED : 1935 Female Age: 81 Order #: [id number] Reason for exam: abdom. pain CT Scan ABD PELVIS IV CONTRAST ONLY Exam Date: 06/14/17 This imaging exam was performed at [facility] EXAM: CT Abdomen and Pelvis With Intravenous Contrast EXAM DATE/TIME: 06/14/2017 5:17 PM CLINICAL HISTORY: The patient age is 81 years old and is female; Pain; Abdominal pain; Additional info: Abdom. Pain Facility exam id and description: Ct abdpelciv abd pelvis iv contrast only TECHNIQUE: Axial computed tomography images of the abdomen and pelvis with intravenous contrast. All CT scans at this facility use one or more dose reduction techniques, viz.: automated exposure control; ma/kV adjustment per patient size (including targeted exams where dose is matched to indication; i.e. head); or iterative reconstruction technique. Coronal and sagittal reformatted images were created and reviewed. CONTRAST: 66 mL of OMNI 350 administered intravenously. COMPARISON: CT - ABD PELVIS IV CONTRAST ONLY 05/01/2017 1:33:30 PM FINDINGS: Lower thorax: See CT chest report from the same day. ABDOMEN: Liver: A metallic focus or clip is identified within the right hepatic lobe inferiorly. The previously described periportal edema has improved. Mild intrahepatic biliary dilatation is identified. Gallbladder and bile ducts: Surgical clips are identified within the gallbladder fossa, compatible with cholecystectomy. Pancreas: Atrophic changes are noted of the pancreas. Spleen: No splenomegaly. Adrenals: No mass. Kidneys and ureters: Adjacent to the upper pole the right kidney, there is a hypodense fluid collection or elongated cyst measuring 2.1 x 1.0 cm. This is new compared to the prior study. There is a hypodense mildly complex cyst at the lower pole of the right kidney again visualized, with internal septation. This measures 3.5 x 4.2 cm. There is a tiny possible additional cysts at the upper pole the right kidney. Stomach and bowel: There is gaseous distention of small and large bowel, suggestive of ileus. This is a progression. Postoperative changes are identified in the region of the cecum. Appendix: Not visualized. PELVIS: Bladder: The bladder is distended. Reproductive: Unremarkable as visualized. ABDOMEN and PELVIS: Intraperitoneal space: No free air. Bones/joints: There is moderate levoscoliosis of the lumbar spine. Hypertrophic degenerative changes are noted within the spine. Soft tissues: There is swelling of the subcutaneous tissues of the pelvis and proximal thighs. Vasculature: There is an IVC filter. Atherosclerotic changes are identified of the abdominal aorta, iliac arteries, and visualized femoral arteries. No abdominal aortic aneurysm. Lymph nodes: No enlarged lymph nodes. IMPRESSION: 1. There is gaseous distention of small and large bowel, suggestive of ileus. This is a progression. 2. Adjacent to the upper pole the right kidney, there is a hypodense fluid collection or elongated cyst measuring 2.1 x 1.0 cm. This is new compared to the prior study. 3. There is a hypodense mildly complex cyst at the lower pole of the right kidney again visualized, with internal septation. 4. The bladder is distended. 5. The previously described periportal edema has improved. Mild intrahepatic biliary dilatation is identified. 6. Incidental/non-acute findings are described above. Dictated By: Jonas Mckenzie MD, MD Dictated Date/Time: 06/14/172210 Signed By: Jonas Toribio MD Date Signed: 2210 Transcribed By: ELIZABETH Transcribe Date/Time : 06/14/172210 Radiology Orders: 06/14/17 16:01 CHEST PORTABLE [RAD] Stat 06/14/17 16:23 DUPLEX LOWER EXTRM VEIN BILAT [US] Stat 06/14/17 17:17 ABD & PELVIS IV CONTRAST ONLY [CT] Stat 06/14/17 20:09 ANGIO CHEST PE PROTOCOL [CT] Stat - EKG Interpretation Interpreted by ED Physician: Yes (a-flutter @ 145 bpm. ) Type: 12 lead EKG Comparison: No previous EKG avail. - Medication Orders Current Medication Orders: Discontinued Medications Enoxaparin Sodium (Lovenox) 54 mg SC STAT STA PRN Reason: Protocol Stop: 06/14/17 21:36 Sodium Chloride (Sodium Chloride 0.9%) 500 mls @ 999 mls/hr IV .Q31M STA Stop: 06/14/17 16:54 Last Admin: 06/14/17 16:45 Dose: 999 mls/hr eMAR Start Stop Document 06/14/17 16:45 (Rec: 06/14/17 16:45 [id number]) Intravenous Solution Start Date 06/14/17 Start Time 16:45 End Date 06/14/17 End time 18:19 Total Infusion Time 94 Disposition/Present on Arrival - Present on Arrival Any Indicators Present on Arrival: No History of DVT/PE: Yes History of Uncontrolled Diabetes: No Urinary Catheter: No History of Decub. Ulcer: No History Surgical Site Infection Following: None - Disposition Have Diagnosis and Disposition been Completed?: Yes Diagnosis: Atrial flutter by electrocardiogram, Cutaneous mycosis, Tachycardia Disposition: HOSPITALIZED Disposition Time: 00:29 Patient Plan: Admission Condition: STABLE
[2017-06-14] MEDS ORDERED: Sodium Chloride 0.9% 500 ML IV STA (16:24)
[2017-06-14 16:52] LABS: BASO # 0.03 K/mm3 (0.0-2.0); BASO % 0.7 % (0.0-3.0); EOS # 0.1 (0.0-0.7); EOS % 1.5 % (1.5-5.0); GRAN # 2.45 (1.4-6.5); GRAN % 59.4 % (50.0-68.0); HEMATOCRIT 38.5 % (36.0-48.0); LYMPH # 1.1 (1.2-3.4); LYMPH % 27.7 % (22.0-35.0); MEAN CELL VOLUME 94.6 fl (80.0-105.0); MEAN CORPUSCULAR HGB CONC 31.7 g/dl (31.0-37.0); MEAN PLATELET VOLUME 9.6 fl (7.0-11.0); MONO # 0.4 (0.1-0.6); MONO % 10.7 % (1.0-6.0); RED CELL DISTRIBUTION WIDTH 14.5 % (11.5-14.5); WHITE BLOOD COUNT 4.1 10^3/ul (4.5-11.0)
--- NOTE | 2017-06-14 16:53 | RAD ---
HISTORY: Sepsis Patient COMPARISON: 05/02/2017 FINDINGS: LUNGS: No active pulmonary disease. PLEURA: No significant pleural effusion identified, no pneumothorax apparent. CARDIOVASCULAR: Normal. OSSEOUS STRUCTURES: No significant abnormalities. VISUALIZED UPPER ABDOMEN: Normal. OTHER FINDINGS: None. IMPRESSION: No active disease.
[2017-06-14 17:01] LABS: INR 1.06 (0.93-1.08); PARTIAL THROMBOPLASTIN TIME 25.8 Seconds (23.7-30.8)
[2017-06-14 17:03] LABS: VENOUS BLOOD GAS BASE EXCESS 5.8 mmol/L (0.0-2.0); VENOUS BLOOD PH 7.41 (7.32-7.43)
[2017-06-14 17:10] LABS: ALB/GLOB RATIO 1.4 (1.1-1.8); ALKALINE PHOSPHATASE 75 U/L (38-126); ALT/SGPT 24 U/L (7-56); AST/SGOT 27 U/L (14-36); BILIRUBIN,TOTAL 1.1 mg/dL (0.2-1.3); BLOOD UREA NITROGEN 9 mg/dL (7-21); CALCIUM 9.4 mg/dL (8.4-10.5); CARBON DIOXIDE 29 mmol/L (21-33); CHLORIDE 102 mmol/L (98-107); GFR AFRICAN-AMERICAN > 60; GLUCOSE,RANDOM 88 mg/dL (70-110); MAGNESIUM 2.1 mg/dL (1.7-2.2); PHOSPHOROUS 3.7 mg/dL (2.5-4.5); POTASSIUM 4.1 mmol/L (3.6-5.0); SODIUM 141 mmol/L (132-148); TOTAL PROTEIN 6.6 g/dL (5.8-8.3)
[2017-06-14 17:23] LABS: TROPONIN I < 0.01 ng/mL
[2017-06-14] MEDS ORDERED: Enoxaparin 60 mg Syringe SC STA ×2 (21:24→21:35)
--- NOTE | 2017-06-14 21:58 | CT ---
EXAM: CT Angiography Chest With Intravenous Contrast EXAM DATE/TIME: 06/14/2017 8:09 PM CLINICAL HISTORY: The patient age is 81 years old and is female; Signs and symptoms; Shortness of breath; Additional info[place] [facility] [place] exam id and description: [facility] angio chest pe protocol TECHNIQUE: Axial computed tomographic angiography images of the chest with intravenous contrast using pulmonary embolism protocol. All CT scans at this facility use one or more dose reduction techniques, viz.: automated exposure control; ma/kV adjustment per patient size (including targeted exams where dose is matched to indication; i.e. head); or iterative reconstruction technique. MIP reconstructed images were created and reviewed. Coronal and sagittal reformatted images were created and reviewed. CONTRAST: 80 mL of OMNI 350 administered intravenously. COMPARISON: CT - CHEST W/O CONTRAST 06/14/2016 5:24:36 PM FINDINGS: Pulmonary arteries: There is dilatation of the pulmonary trunk and main pulmonary arteries, suggestive of pulmonary artery hypertension. The main pulmonary trunk, right/left main pulmonary arteries, and the proximal lobar branches demonstrate no definite intraluminal filling defect to suggest pulmonary embolism. Aorta: Atherosclerotic changes are identified of the thoracic aorta. No thoracic aortic aneurysm. Lungs: Mild patchy atelectatic changes are identified within the right middle lobe, lingula, and both lower lobes. There is a small peripheral consolidation within the lateral aspect of the left upper lobe on series 3 image 48. This is suggestive of atelectatic change or infiltrate. Biapical consolidations are identified, likely due to parenchymal scarring. Pleural space: No significant effusion. No pneumothorax. Heart: No cardiomegaly. No significant pericardial effusion. No evidence of RV dysfunction. Bones/joints: There is increased kyphosis of the thoracic spine with moderate dextroscoliosis. Midline sternotomy wires are identified. Lymph nodes: No enlarged lymph nodes. Gallbladder and bile ducts: Cholecystectomy clips are identified. Kidneys and ureters: Posterior to the upper pole the left kidney, there is a 1.7 x 1.2 cm hypodense nodular fluid collection density which appears to be separate of the left kidney. This is new compared to the previous CT. IMPRESSION: 1. There is dilatation of the pulmonary trunk and main pulmonary arteries, suggestive of pulmonary artery hypertension. 2. No acute pulmonary embolism. 3. Mild patchy atelectatic changes are identified within the right middle lobe, lingula, and both lower lobes. 4. There is a small peripheral consolidation within the lateral aspect of the left upper lobe on series 3 image 48. This is suggestive of atelectatic change or infiltrate, and has mildly progressed. Biapical consolidations are identified, likely due to parenchymal scarring, which have also progressed. 5. Posterior to the upper pole the left kidney, there is a 1.7 x 1.2 cm hypodense nodular fluid collection density which appears to be separate of the left kidney. This is new compared to the previous CT. Nonemergent ultrasonography is recommended. 6. Additional CT findings described above.
--- NOTE | 2017-06-14 22:11 | CT ---
EXAM: CT Abdomen and Pelvis With Intravenous Contrast EXAM DATE/TIME: 06/14/2017 5:17 PM CLINICAL HISTORY: The patient age is 81 years old and is female; Pain; Abdominal pain; Additional info: Abdom. Pain Facility exam id and description: Ct abdpelciv abd pelvis iv contrast only TECHNIQUE: Axial computed tomography images of the abdomen and pelvis with intravenous contrast. All CT scans at this facility use one or more dose reduction techniques, viz.: automated exposure control; ma/kV adjustment per patient size (including targeted exams where dose is matched to indication; i.e. head); or iterative reconstruction technique. Coronal and sagittal reformatted images were created and reviewed. CONTRAST: 66 mL of OMNI 350 administered intravenously. COMPARISON: CT - ABD PELVIS IV CONTRAST ONLY 05/01/2017 1:33:30 PM FINDINGS: Lower thorax: See CT chest report from the same day. ABDOMEN: Liver: A metallic focus or clip is identified within the right hepatic lobe inferiorly. The previously described periportal edema has improved. Mild intrahepatic biliary dilatation is identified. Gallbladder and bile ducts: Surgical clips are identified within the gallbladder fossa, compatible with cholecystectomy. Pancreas: Atrophic changes are noted of the pancreas. Spleen: No splenomegaly. Adrenals: No mass. Kidneys and ureters: Adjacent to the upper pole the right kidney, there is a hypodense fluid collection or elongated cyst measuring 2.1 x 1.0 cm. This is new compared to the prior study. There is a hypodense mildly complex cyst at the lower pole of the right kidney again visualized, with internal septation. This measures 3.5 x 4.2 cm. There is a tiny possible additional cysts at the upper pole the right kidney. Stomach and bowel: There is gaseous distention of small and large bowel, suggestive of ileus. This is a progression. Postoperative changes are identified in the region of the cecum. Appendix: Not visualized. PELVIS: Bladder: The bladder is distended. Reproductive: Unremarkable as visualized. ABDOMEN and PELVIS: Intraperitoneal space: No free air. Bones/joints: There is moderate levoscoliosis of the lumbar spine. Hypertrophic degenerative changes are noted within the spine. Soft tissues: There is swelling of the subcutaneous tissues of the pelvis and proximal thighs. Vasculature: There is an IVC filter. Atherosclerotic changes are identified of the abdominal aorta, iliac arteries, and visualized femoral arteries. No abdominal aortic aneurysm. Lymph nodes: No enlarged lymph nodes. IMPRESSION: 1. There is gaseous distention of small and large bowel, suggestive of ileus. This is a progression. 2. Adjacent to the upper pole the right kidney, there is a hypodense fluid collection or elongated cyst measuring 2.1 x 1.0 cm. This is new compared to the prior study. 3. There is a hypodense mildly complex cyst at the lower pole of the right kidney again visualized, with internal septation. 4. The bladder is distended. 5. The previously described periportal edema has improved. Mild intrahepatic biliary dilatation is identified. 6. Incidental/non-acute findings are described above.
[2017-06-15] MEDS ORDERED: cefTRIAXone 1 gm 1 GM/100 ML BAG IVPB STA (00:57)
[2017-06-15] MEDS ORDERED: Vancomycin 1gm in NS 250ml 1 GM/250 ML BAG IVPB STA (00:58)
--- NOTE | 2017-06-15 01:40 | CP.PCM.HP ---
<Adonis Soares - Last Filed: 06/15/17 03:06> History of Present Illness - History of Present Illness History of Present Illness: Chief Complaint Left lower extremity pain HPI Patient is an 81 year old female with a past medical history of DVT s/p IVC filter,bioprosthetic aortic valve replacement, paroxysmal atrial fibrillation, chronic anemia, thrombocytopenia, left breast ca s/p L mastectomy, presenting to [facility] on 06/14/17 who was seen in office and sent by her PMD Dr. Pritchett for evaluation of feet and tachycardia. Patient states that the pain in her feet has been present for years however the pain recently worsened which is why she decided to see her PMD today. Patient states she has not taken any of her medications for several months. Patient denies shortness of breath, chest pain, abdominal pain, dysuria, dizziness, headache. PMD: Dr. Pritchett Surgical history: Left mastectomy, bioproesthetic aortic valve replacement, IVC filter s/p DVT Allergies: NKDA Social history: denies tobacco use, alcohol consumption, illicit drug use Present on Admission - Present on Admission Any Indicators Present on Admission: No Review of Systems - Constitutional Constitutional: absent: Chills, Fever, Headache - EENT Eyes: absent: Blurred Vision, Change in Vision Ears: absent: Decreased Hearing, Ear Discharge - Cardiovascular Cardiovascular: absent: Chest Pain, Dyspnea, Palpitations - Respiratory Respiratory: absent: Cough, Dyspnea, Wheezing - Gastrointestinal Gastrointestinal: absent: Abdominal Pain, Diarrhea, Nausea, Vomiting - Genitourinary Genitourinary: absent: Difficulty Urinating, Dysuria - Musculoskeletal Musculoskeletal: Deformity (B/L toe deformity). absent: Back Pain, Numbness, Tingling - Neurological Neurological: absent: Dizziness, Numbness, Radicular Pain Past Patient History - Infectious Disease Hx of Infectious Diseases: None - Tetanus Immunizations Tetanus Immunization: Unknown - Past Social History Smoking Status: Never Smoked - CARDIAC Hx Cardiac Disorders: Yes (ivc filter hx dvt) Hx Hypertension: Yes - PULMONARY Hx Respiratory Disorders: No - NEUROLOGICAL Hx Neurological Disorder: No - HEENT Hx HEENT Problems: No - RENAL Hx Chronic Kidney Disease: No - ENDOCRINE/METABOLIC Hx Endocrine Disorders: No - HEMATOLOGICAL/ONCOLOGICAL Hx Blood Disorders: Yes (thrombocytopenia) Hx Anemia: Yes (blood transfusion) Hx Cancer: Yes (left breast ca with lymph nodes) Hx Chemotherapy: (pt denies chemo and radiation) - INTEGUMENTARY Hx Dermatological Problems: Yes Other/Comment: cellulitis. ble +1 edema - MUSCULOSKELETAL/RHEUMATOLOGICAL Hx Musculoskeletal Disorders: Yes Hx Arthritis: Yes Other/Comment: walks with cane - GASTROINTESTINAL Hx Gastrointestinal Disorders: Yes (HX GI BLEED, weight loss) - GENITOURINARY/GYNECOLOGICAL Hx Genitourinary Disorders: Yes Hx Urinary Tract Infection: Yes - PSYCHIATRIC Hx Psychophysiologic Disorder: No Hx Substance Use: No - SURGICAL HISTORY Hx Mastectomy: Yes (LEFT) Hx Open Heart Surgery: Yes Hx Valve Replacement: Yes Other/Comment: IVC FILTER - ANESTHESIA Hx Anesthesia: Yes Hx Anesthesia Reactions: No Hx Malignant Hyperthermia: No Meds Allergies/Adverse Reactions: Allergies Allergy/AdvReac Type Severity Reaction Status Date / Time No Known Allergies Allergy Verified 06/14/17 15:47 Physical Exam - Constitutional Appears: Non-toxic - Head Exam Head Exam: ATRAUMATIC, NORMAL INSPECTION, NORMOCEPHALIC - Eye Exam Eye Exam: EOMI, Normal appearance Pupil Exam: NORMAL ACCOMODATION - ENT Exam ENT Exam: Mucous Membranes Moist, Normal Exam - Neck Exam Neck exam: Positive for: Normal Inspection - Respiratory Exam Respiratory Exam: Clear to Auscultation Bilateral, NORMAL BREATHING PATTERN - Cardiovascular Exam Cardiovascular Exam: REGULAR RHYTHM, +S1, +S2 Additional comments: Old scar on chest wall s/p aortic valve replacement - GI/Abdominal Exam GI & Abdominal Exam: Normal Bowel Sounds, Soft - Expanded Lower Extremities Exam Left Lower Leg Exam: erythema (of both lower legs noted; skin in this area is scaly) , tenderness Ankle exam: deformity (scab behind right lateral malleolus), erythema (B/L ankles), tenderness (B/L ankles) Foot/Toe exam: deformity (B/L toe deformities with fungal infection between toes , DP pulses faintly felt bilaterally), erythema (B/L), tenderness (B/L) - Back Exam Back exam: absent: NORMAL INSPECTION (kyphosis) - Neurological Exam Neurological exam: Alert, CN II-XII Intact, Oriented x3 Results - Vital Signs Recent Vital Signs: Last Vital Signs Temp 98.7 F 06/14/17 16:58 Pulse 89 06/14/17 18:21 Resp 16 06/14/17 18:21 BP 114/72 10/05/17 18:21 Pulse Ox 98 06/14/17 18:21 - Labs Result Diagrams: 06/14/17 16:15 06/14/17 16:15 Assessment & Plan - Assessment and Plan (Free Text) Plan: Assessment 81 year old female presenting with left leg pain Plan 1. B/L Lower Extremity Cellulitus and fungal pedal infection - Vancomycin - Rocephin - ID consulted 2. Chronic DVT of left leg - Lovenox started 3. Atrial Flutter - Resolved after IVF were administered 4. Thrombocytopenia - Patient has baseline thrombocytopenia, continue to trend. Consult if needed. 5. Peripheral Arterial Disease - Arterial doppler studies - Tylenol for pain control GI prophylaxis -Protonix <Kimberly Barahona - Last Filed: 06/15/17 03:12> Results - Vital Signs Recent Vital Signs: Last Vital Signs Temp 98.7 F 06/14/17 16:58 Pulse 89 06/14/17 18:21 Resp 16 06/14/17 18:21 BP 114/72 06/14/17 18:21 Pulse Ox 98 06/14/17 18:21 - Labs Result Diagrams: 06/14/17 16:15 06/14/17 16:15 Labs: Laboratory Results - last 24 hr 06/15/17 06/15/17 01:30 01:32 Troponin I 0.02 D Urine Color Yellow Urine Appearance Clear Urine pH 7.5 Ur Specific [place] <= 1.005 Urine Protein Negative Urine Glucose (UA) Negative Urine Ketones Negative Urine Blood Negative Urine Nitrate Negative Urine Bilirubin Negative Urine Urobilinogen 0.2 Ur Leukocyte Esterase Negative Attending/Attestation - Attestation I have personally seen and examined this patient.: Yes I have fully participated in the care of the patient.: Yes I have reviewed all pertinent clinical information: Yes Notes (Text): 06/15/17 03:11 Agree with documentation and plan.
[2017-06-15 01:46] LABS: PH,URINE 7.5 (4.7-8.0); URINE BILIRUBIN NEGATIVE (NEGATIVE); URINE BLOOD NEGATIVE (NEGATIVE); URINE GLUCOSE (UA) NEGATIVE (NEGATIVE); URINE KETONE NEGATIVE (NEGATIVE); URINE LEUKOCYTE ESTERASE NEGATIVE Leu/uL (NEGATIVE); URINE PROTEIN NEGATIVE mg/dL (<30 mg/dL); URINE UROBILINOGEN 0.2 E.U./dL (<1 E.U./dL)
[2017-06-15 01:50] LABS: URINE APPEARANCE CLEAR (CLEAR); URINE COLOR YELLOW (YELLOW)
[2017-06-15 03:18] VITALS: BMI 16.7
[2017-06-15 07:11] LABS: BASO # 0.01 K/mm3 (0.0-2.0); BASO % 0.2 % (0.0-3.0); GRAN # 3.33 (1.4-6.5); GRAN % 82.3 % (50.0-68.0); HEMATOCRIT 37.1 % (36.0-48.0); LYMPH # 0.4 (1.2-3.4); LYMPH % 9.1 % (22.0-35.0); MEAN CELL VOLUME 94.9 fl (80.0-105.0); MEAN CORPUSCULAR HEMOGLOBIN 29.2 pg (25.0-35.0); MEAN CORPUSCULAR HGB CONC 30.7 g/dl (31.0-37.0); MEAN PLATELET VOLUME 10.1 fl (7.0-11.0); MONO # 0.3 (0.1-0.6); MONO % 7.4 % (1.0-6.0); RED CELL DISTRIBUTION WIDTH 14.6 % (11.5-14.5); WHITE BLOOD COUNT 4.1 10^3/ul (4.5-11.0)
[2017-06-15 07:15] LABS: ALB/GLOB RATIO 1.3 (1.1-1.8); ALKALINE PHOSPHATASE 59 U/L (38-126); ALT/SGPT 25 U/L (7-56); AST/SGOT 24 U/L (14-36); BLOOD UREA NITROGEN 6 mg/dL (7-21); CALCIUM 8.6 mg/dL (8.4-10.5); CARBON DIOXIDE 29 mmol/L (21-33); CHLORIDE 107 mmol/L (98-107); GFR AFRICAN-AMERICAN > 60; GLUCOSE,RANDOM 84 mg/dL (70-110); POTASSIUM 3.5 mmol/L (3.6-5.0); SODIUM 144 mmol/L (132-148); TOTAL PROTEIN 5.4 g/dL (5.8-8.3)
[2017-06-15 07:25] LABS: TROPONIN I 0.02 ng/mL
[2017-06-15] MEDS ORDERED: Potassium Chloride 40 mEq/30 ml LIQ UD PO ONE (08:50)
[2017-06-15] MEDS: Enoxaparin 60 mg Syringe SC SCH ×2 (10:37→22:51)
[2017-06-15] MEDS: cefTRIAXone 1 gm 1 GM/100 ML BAG IVPB SCH (10:40)
[2017-06-15] MEDS: Vancomycin 1gm in NS 250ml 1 GM/250 ML BAG IVPB SCH (10:41)
--- NOTE | 2017-06-15 14:06 | CP.PCM.CON ---
History of Present Illness - History of Present Illness History of Present Illness: 81 year old female with PMH of bioprosthetic aortic valve replacement, DVT S/P IVC filter placement, paroxysmal atrial fibrillation, chronic anemia, left breast CA S/P left mastectomy, was brought in to [facility] because of continued skin changes on both her feet and legs. The patient is also noted to have tachycardia is also being evaluated for this. She denies specific trauma to the legs, denies animal contacts, no soaking her legs or feet in water , denies fever or chills, no nausea or vomiting, no abdominal pain, no diarrhea , no dysuria, no headache or dizziness, no chest pain, no SOB. Infectious Diseases consult is requested to further evaluate and manage. Review of Systems - Review of Systems All systems: reviewed and no additional remarkable complaints except (as per HPI ) Past Patient History - Infectious Disease Hx of Infectious Diseases: None - Tetanus Immunizations Tetanus Immunization: Unknown - Past Social History Smoking Status: Never Smoked - CARDIAC Hx Cardiac Disorders: Yes (ivc filter hx dvt) Hx Hypertension: Yes - PULMONARY Hx Respiratory Disorders: No - NEUROLOGICAL Hx Neurological Disorder: No - HEENT Hx HEENT Problems: No - RENAL Hx Chronic Kidney Disease: No - ENDOCRINE/METABOLIC Hx Endocrine Disorders: No - HEMATOLOGICAL/ONCOLOGICAL Hx Blood Disorders: Yes (thrombocytopenia) Hx Anemia: Yes (blood transfusion) Hx Cancer: Yes (left breast ca with lymph nodes) Hx Chemotherapy: (pt denies chemo and radiation) - INTEGUMENTARY Hx Dermatological Problems: Yes Other/Comment: cellulitis. ble +1 edema - MUSCULOSKELETAL/RHEUMATOLOGICAL Hx Musculoskeletal Disorders: Yes Hx Arthritis: Yes Other/Comment: walks with cane - GASTROINTESTINAL Hx Gastrointestinal Disorders: Yes (HX GI BLEED, weight loss) - GENITOURINARY/GYNECOLOGICAL Hx Genitourinary Disorders: Yes Hx Urinary Tract Infection: Yes - PSYCHIATRIC Hx Psychophysiologic Disorder: No Hx Substance Use: No - SURGICAL HISTORY Hx Mastectomy: Yes (LEFT) Hx Open Heart Surgery: Yes Hx Valve Replacement: Yes Other/Comment: IVC FILTER - ANESTHESIA Hx Anesthesia: Yes Hx Anesthesia Reactions: No Hx Malignant Hyperthermia: No Meds Allergies/Adverse Reactions: Allergies Allergy/AdvReac Type Severity Reaction Status Date / Time No Known Allergies Allergy Verified 06/14/17 15:47 - Medications Medications: Current Medications Acetaminophen (Tylenol 325mg Tab) 650 mg PO Q6H PRN PRN Reason: Fever >100.4 F Enoxaparin Sodium (Lovenox) 54 mg SC Q12H KHADRA PRN Reason: Protocol Pantoprazole Sodium (Protonix Inj) 40 mg IVP DAILY [facility] Physical Exam - Constitutional Appears: Non-toxic, No Acute Distress, Cachectic - Head Exam Head Exam: NORMAL INSPECTION - ENT Exam ENT Exam: Mucous Membranes Moist - Neck Exam Neck exam: Negative for: Meningismus - Respiratory Exam Respiratory Exam: Decreased Breath Sounds - Cardiovascular Exam Cardiovascular Exam: +S1, +S2 - GI/Abdominal Exam GI & Abdominal Exam: Soft. absent: Tenderness - Extremities Exam Additional comments: both legs with scaly lesions, some swelling and some lichenification noted especially on the feet Results - Vital Signs Recent Vital Signs: Last Vital Signs Temp 98.4 F 06/15/17 06:00 Pulse 76 06/15/17 06:00 Resp 19 06/15/17 06:00 BP 98/56 L 06/15/17 06:00 Pulse Ox 96 06/15/17 06:00 - Labs Result Diagrams: 06/15/17 06:50 06/15/17 06:50 Labs: Laboratory Results - last 24 hr 06/15/17 06/15/17 01:30 01:32 Troponin I 0.02 D Urine Color Yellow Urine Appearance Clear Urine pH 7.5 Ur Specific [place] <= 1.005 Urine Protein Negative Urine Glucose (UA) Negative Urine Ketones Negative Urine Blood Negative Urine Nitrate Negative Urine Bilirubin Negative Urine Urobilinogen 0.2 Ur Leukocyte Esterase Negative Assessment & Plan - Assessment and Plan (Free Text) Plan: Assessment bilateral lower extemity xerosis with probably skin and skin structure infection and tinea pedis bioprosthetic aortic valve replacement DVT S/P IVC filter placement paroxysmal atrial fibrillation chronic anemia left breast CA S/P left mastectomy Plan Started the patient on Vancomycin and Rocephin and Clotrimazole cream pending blood cx; follow up Podiatry evaluation and recommendations will monitor clinically
[2017-06-15] MEDS: Clotrimazole 1% Cream(30 gm) TOP SCH (17:03)
--- NOTE | 2017-06-15 23:09 | CARD ---
APPROVED REPORT EKG Measurement Heart [id number] <Conclusion> Normal sinus rhythm Normal ECG
[2017-06-16] MEDS: Vancomycin 1gm in NS 250ml 1 GM/250 ML BAG IVPB SCH (09:49)
[2017-06-16] MEDS: cefTRIAXone 1 gm 1 GM/100 ML BAG IVPB SCH (09:49)
[2017-06-16] MEDS: Clotrimazole 1% Cream(30 gm) TOP SCH ×2 (09:55→19:08)
[2017-06-16] MEDS ORDERED: Potassium Chloride 40 mEq/30 ml LIQ UD PO ONE (09:55)
[2017-06-16] MEDS: Enoxaparin 60 mg Syringe SC SCH (10:00)
--- NOTE | 2017-06-16 11:21 | CP.PCM.PN ---
<Zaid No - Last Filed: 06/16/17 11:26> Subjective - Date & Time of Evaluation Date of Evaluation: 06/16/17 Time of Evaluation: 09:18 - Subjective Subjective: Patient was seen and examined at bedside. The patient reports feeling better than yesterday. The patient still reports left foot pain. The patient denies any chest pain, abdominal pain, palpitations, shortness of breath, nausea, headache, or any other complaints. Objective - Vital Signs/Intake and Output Vital Signs (last 24 hours): Temp Pulse Resp BP Pulse Ox 98.6 F 78 17 115/63 96 06/15/17 18:00 06/15/17 22:00 06/15/17 18:00 06/15/17 18:00 06/15/17 06:00 Intake and Output: 06/16/17 06/16/17 06:59 18:59 Intake Total 240 240 Output Total 0 0 Balance 240 240 - Medications Medications: Current Medications Acetaminophen (Tylenol 325mg Tab) 650 mg PO Q6H PRN PRN Reason: Fever >100.4 F Last Admin: 06/16/17 06:00 Dose: 650 mg Clotrimazole (Lotrimin 1%) 0 gm TOP BID KHADRA Last Admin: 06/16/17 09:55 Dose: 1 applic Enoxaparin Sodium (Lovenox) 54 mg SC Q12H KHADRA PRN Reason: Protocol Last Admin: 06/16/17 10:00 Dose: 54 mg Ceftriaxone Sodium (Rocephin 1 Gram Ivpb) 1 gm in 100 mls @ 100 mls/hr IVPB DAILY [facility]RA PRN Reason: Protocol Last Admin: 06/16/17 09:49 Dose: 100 mls/hr Vancomycin HCl (Vancomycin 1gm) 1 gm in 250 mls @ 167 mls/hr IVPB DAILY [facility]ADRA PRN Reason: Protocol Last Admin: 06/16/17 09:49 Dose: 167 mls/hr Pantoprazole Sodium (Protonix Inj) 40 mg IVP DAILY KHADRA Last Admin: 06/16/17 09:50 Dose: 40 mg - Labs Labs: 06/15/17 06:50 06/15/17 06:50 PT 11.4 Seconds (9.9-11.8) 06/14/17 16:15 INR 1.06 (0.93-1.08) 06/14/17 16:15 APTT 25.8 Seconds (23.7-30.8) 06/14/17 16:15 - Head Exam Head Exam: ATRAUMATIC, NORMAL INSPECTION, NORMOCEPHALIC - Eye Exam Eye Exam: EOMI, Normal appearance, PERRL Pupil Exam: NORMAL ACCOMODATION, PERRL. absent: Irregular, Unequal - ENT Exam ENT Exam: Mucous Membranes Moist, Normal Oropharynx - Neck Exam Neck Exam: Normal Inspection. absent: Lymphadenopathy, Thyromegaly - Respiratory Exam Respiratory Exam: Clear to Ausculation Bilateral, NORMAL BREATHING PATTERN. absent: Accessory Muscle Use, Chest Wall Tenderness, Wheezes, Respiratory Distress - Cardiovascular Exam Cardiovascular Exam: REGULAR RHYTHM, RRR, +S1, +S2. absent: Gallop, Rubs - GI/Abdominal Exam GI & Abdominal Exam: Soft, Normal Bowel Sounds. absent: Tenderness - Extremities Exam Additional comments: b/l fungal foot infections - Back Exam Back Exam: NORMAL INSPECTION. absent: CVA tenderness (L), CVA tenderness (R), paraspinal tenderness - Neurological Exam Neurological Exam: Alert, Awake. absent: Motor Sensory Deficit, Oriented x3 - Psychiatric Exam Psychiatric exam: Normal Affect, Normal Mood - Skin Skin Exam: Dry Assessment and Plan - Assessment and Plan (Free Text) Assessment: 81 year old female presenting with left leg pain. Plan: 1. B/L Lower Extremity Cellulitus and fungal pedal infection - Vancomycin - Rocephin -Clotrimazole Cream. - ID consulted. Rec's appreciated. 2. Chronic DVT of left leg -Continue Lovenox 3. Atrial Flutter - Resolved after IVF were administered -Will continue to monitor closely. 4. Thrombocytopenia - Patient has baseline thrombocytopenia, continue to trend. Consult if needed. 5. Peripheral Arterial Disease - Arterial doppler studies - Tylenol for pain control GI prophylaxis -Protonix <Solo Nation - Last Filed: 06/16/17 17:34> Objective - Vital Signs/Intake and Output Vital Signs (last 24 hours): Temp Pulse Resp BP Pulse Ox 97.1 F L 90 19 129/70 96 06/16/17 16:45 06/16/17 16:45 06/16/17 16:45 06/16/17 16:45 06/15/17 06:00 Intake and Output: 06/16/17 06/16/17 06:59 18:59 Intake Total 240 240 Output Total 0 0 Balance 240 240 - Medications Medications: Current Medications Acetaminophen (Tylenol 325mg Tab) 650 mg PO Q6H PRN PRN Reason: Fever >100.4 F Last Admin: 06/16/17 15:53 Dose: 650 mg Clotrimazole (Lotrimin 1%) 0 gm TOP BID [facility] Last Admin: 06/16/17 09:55 Dose: 1 applic Enoxaparin Sodium (Lovenox) 40 mg SC DAILY KHADRA PRN Reason: Protocol Ceftriaxone Sodium (Rocephin 1 Gram Ivpb) 1 gm in 100 mls @ 100 mls/hr IVPB DAILY KHADRA PRN Reason: Protocol Last Admin: 06/16/17 09:49 Dose: 100 mls/hr Vancomycin HCl (Vancomycin 1gm) 1 gm in 250 mls @ 167 mls/hr IVPB DAILY KHADRA PRN Reason: Protocol Last Admin: 06/16/17 09:49 Dose: 167 mls/hr Pantoprazole Sodium (Protonix Inj) 40 mg IVP DAILY [facility] Last Admin: 06/16/17 09:50 Dose: 40 mg - Labs Labs: 06/15/17 06:50 06/15/17 06:50 PT 11.4 Seconds (9.9-11.8) 06/14/17 16:15 INR 1.06 (0.93-1.08) 06/14/17 16:15 APTT 25.8 Seconds (23.7-30.8) 06/14/17 16:15 Attending/Attestation - Attestation I have personally seen and examined this patient.: Yes I have fully participated in the care of the patient.: Yes I have reviewed all pertinent clinical information, including history, physical exam and plan: Yes Notes (Text): 06/16/17 17:28 Patient was seen and examined with medical affairs director. Agreed with resident assessment and plan. 81 F was admitted with palpitation and bilateral leg cellulitis.There is no evidence of any arrhythmia on available EKG or on telemetry . Patient has severe dementia, will change lovenox to DVT Prophylaxis. Patient cellulitis is improving.Blood cultures are growing coagulase negative stap which is likely contaminated. Patient has thrombocytopenia , will monitor closely as patient is on lovenox .There is no evidence of bleeding. Management plan was discussed in detail with patient Education was provided.
--- NOTE | 2017-06-16 14:22 | CP.PCM.PN ---
Subjective - Date & Time of Evaluation Date of Evaluation: 06/16/17 Time of Evaluation: 10:50 - Subjective Subjective: Comfortable in bed, less pain in the legs, not in distress, no fevers. Objective - Vital Signs/Intake and Output Vital Signs (last 24 hours): Temp Pulse Resp BP Pulse Ox 98.6 F 78 17 115/63 96 06/15/17 18:00 06/15/17 22:00 06/15/17 18:00 06/15/17 18:00 06/15/17 06:00 Intake and Output: 06/16/17 06/16/17 06:59 18:59 Intake Total 240 Output Total 0 Balance 240 - Medications Medications: Current Medications Acetaminophen (Tylenol 325mg Tab) 650 mg PO Q6H PRN PRN Reason: Fever >100.4 F Last Admin: 06/16/17 06:00 Dose: 650 mg Clotrimazole (Lotrimin 1%) 0 gm TOP BID [facility] Last Admin: 06/15/17 17:03 Dose: 1 applic Enoxaparin Sodium (Lovenox) 54 mg SC Q12H [facility] PRN Reason: Protocol Last Admin: 06/15/17 22:51 Dose: 54 mg Ceftriaxone Sodium (Rocephin 1 Gram Ivpb) 1 gm in 100 mls @ 100 mls/hr IVPB DAILY [facility] PRN Reason: Protocol Last Admin: 06/15/17 10:40 Dose: 100 mls/hr Vancomycin HCl (Vancomycin 1gm) 1 gm in 250 mls @ 167 mls/hr IVPB DAILY [facility] PRN Reason: Protocol Last Admin: 06/15/17 10:41 Dose: 167 mls/hr Pantoprazole Sodium (Protonix Inj) 40 mg IVP DAILY [facility] Last Admin: 06/15/17 10:40 Dose: 40 mg - Labs Labs: 06/15/17 06:50 06/15/17 06:50 PT 11.4 Seconds (9.9-11.8) 06/14/17 16:15 INR 1.06 (0.93-1.08) 06/14/17 16:15 APTT 25.8 Seconds (23.7-30.8) 06/14/17 16:15 - Constitutional Appears: Non-toxic, No Acute Distress - Head Exam Head Exam: NORMAL INSPECTION - ENT Exam ENT Exam: Mucous Membranes Moist - Neck Exam Neck Exam: absent: Meningismus - Respiratory Exam Respiratory Exam: Decreased Breath Sounds - Cardiovascular Exam Cardiovascular Exam: +S1, +S2 - GI/Abdominal Exam GI & Abdominal Exam: Soft. absent: Tenderness - Extremities Exam Additional comments: both legs with scaly lesions Assessment and Plan - Assessment and Plan (Free Text) Plan: Assessment bilateral lower extemity xerosis with probably skin and skin structure infection and tinea pedis gram positive cocci in 1 of 4 bottles, R/O contamination bioprosthetic aortic valve replacement DVT S/P IVC filter placement paroxysmal atrial fibrillation chronic anemia left breast CA S/P left mastectomy Plan continue Vancomycin and Rocephin and Clotrimazole cream (day 2); blood cx showing gram positive cocci - will repeat blood cx today; follow up Podiatry evaluation and recommendations will continue to monitor clinically
--- NOTE | 2017-06-16 15:36 | US ---
PROCEDURE: Lower extremity NATHALIE exam HISTORY: Peripheral vascular disease with pain and claudication. PHYSICIAN(S): Randy Salas MD. FINDINGS: The resting NATHALIE's are normal: right, 1.16and left, 1.14. The brachial systolic pressures are symmetric. The high thigh pressures and waveforms are relatively normal. The calf PVR waveforms augment normally. No significant gradients are noted across the thighs. The ankle and metatarsal waveforms are relatively normal and symmetric. No significant pressure gradients are noted across the lower legs. IMPRESSION: 1. Normal NATHALIE and PVR examination at rest.
[2017-06-17] MEDS ORDERED: Pantoprazole 40 mg EC Tab PO SCH (06:00)
[2017-06-17 06:59] LABS: BASO # 0.03 K/mm3 (0.0-2.0); EOS # 0.1 (0.0-0.7); EOS % 3.5 % (1.5-5.0); GRAN # 1.77 (1.4-6.5); GRAN % 56.9 % (50.0-68.0); HEMATOCRIT 38.5 % (36.0-48.0); LYMPH # 0.9 (1.2-3.4); LYMPH % 28.6 % (22.0-35.0); MEAN CELL VOLUME 95.1 fl (80.0-105.0); MEAN CORPUSCULAR HEMOGLOBIN 29.4 pg (25.0-35.0); MEAN CORPUSCULAR HGB CONC 30.9 g/dl (31.0-37.0); MEAN PLATELET VOLUME 9.6 fl (7.0-11.0); MONO # 0.3 (0.1-0.6); RED CELL DISTRIBUTION WIDTH 14.3 % (11.5-14.5); WHITE BLOOD COUNT 3.1 10^3/ul (4.5-11.0)
[2017-06-17 07:22] LABS: ALB/GLOB RATIO 1.3 (1.1-1.8); ALKALINE PHOSPHATASE 52 U/L (38-126); ALT/SGPT 24 U/L (7-56); AST/SGOT 22 U/L (14-36); BILIRUBIN,TOTAL 0.5 mg/dL (0.2-1.3); BLOOD UREA NITROGEN 7 mg/dL (7-21); CALCIUM 8.7 mg/dL (8.4-10.5); CARBON DIOXIDE 32 mmol/L (21-33); CHLORIDE 105 mmol/L (98-107); GFR AFRICAN-AMERICAN > 60; GLUCOSE,RANDOM 75 mg/dL (70-110); POTASSIUM 4.3 mmol/L (3.6-5.0); SODIUM 142 mmol/L (132-148); TOTAL PROTEIN 5.4 g/dL (5.8-8.3)
[2017-06-17] MEDS: Clotrimazole 1% Cream(30 gm) TOP SCH ×2 (09:52→19:21)
[2017-06-17] MEDS: cefTRIAXone 1 gm 1 GM/100 ML BAG IVPB SCH (09:53)
[2017-06-17] MEDS: Vancomycin 1gm in NS 250ml 1 GM/250 ML BAG IVPB SCH (09:53)
[2017-06-17] MEDS: Enoxaparin 40 mg Syringe SC SCH (09:53)
--- NOTE | 2017-06-17 12:38 | US ---
PROCEDURE: Ultrasound of the Kidneys HISTORY: Abnormal CT findings COMPARISON: 06/14/2017 CT abdomen and pelvis. 01/04/2016 abdominal ultrasound. TECHNIQUE: Sonogram of the kidneys. FINDINGS: RIGHT KIDNEY: Measures: 4.3 x 4.9 x 9.4 cm. Normal in size, contour and echogenicity. No stone, solid mass lesion or hydronephrosis visualized. Simple cyst 3.3 x 3.5 cm. This finding was apparent on the prior ultrasound 01/04/2016 LEFT KIDNEY: Measures: 4.4 x 4.7 cm. Normal in size, contour and echogenicity. No stone, solid mass lesion or hydronephrosis visualized. OTHER FINDINGS: None. IMPRESSION: No significant or acute findings to account for/ related to the clinical presentation.
--- NOTE | 2017-06-17 12:51 | CP.PCM.PN ---
Subjective - Date & Time of Evaluation Date of Evaluation: 06/17/17 Time of Evaluation: 07:47 - Subjective Subjective: Patient seen and examined at bedside. The patient reports feeling better today with left pain in her foot. The patient denies any nausea, vomiting, chest pain , lightheadedness, dizziness, changes in vision, abdominal pain, syncopal episodes, or any other complaints. Objective - Vital Signs/Intake and Output Vital Signs (last 24 hours): Temp Pulse Resp BP Pulse Ox 98.4 F 71 20 125/71 98 06/17/17 06:00 06/17/17 06:00 06/17/17 06:00 06/17/17 06:00 06/17/17 06:00 Intake and Output: 06/17/17 06/17/17 06:59 18:59 Intake Total 240 Output Total 675 Balance -435 - Medications Medications: Current Medications Acetaminophen (Tylenol 325mg Tab) 650 mg PO Q6H PRN PRN Reason: Fever >100.4 F Last Admin: 06/16/17 23:25 Dose: 650 mg Clotrimazole (Lotrimin 1%) 0 gm TOP BID [facility] Last Admin: 06/17/17 09:52 Dose: 1 applic Enoxaparin Sodium (Lovenox) 40 mg SC DAILY [facility] PRN Reason: Protocol Last Admin: 06/17/17 09:53 Dose: 40 mg Ceftriaxone Sodium (Rocephin 1 Gram Ivpb) 1 gm in 100 mls @ 100 mls/hr IVPB DAILY [facility] PRN Reason: Protocol Last Admin: 06/17/17 09:53 Dose: 100 mls/hr Vancomycin HCl (Vancomycin 1gm) 1 gm in 250 mls @ 167 mls/hr IVPB DAILY [facility] PRN Reason: Protocol Last Admin: 06/17/17 09:53 Dose: 167 mls/hr Pantoprazole Sodium (Protonix Ec Tab) 40 mg PO 0600 [facility] Last Admin: 06/17/17 06:34 Dose: 40 mg - Labs Labs: 06/17/17 06:00 06/17/17 06:00 PT 11.4 Seconds (9.9-11.8) 06/14/17 16:15 INR 1.06 (0.93-1.08) 06/14/17 16:15 APTT 25.8 Seconds (23.7-30.8) 06/14/17 16:15 - Head Exam Head Exam: ATRAUMATIC, NORMAL INSPECTION, NORMOCEPHALIC - Eye Exam Eye Exam: EOMI, Normal appearance, PERRL Pupil Exam: NORMAL ACCOMODATION, PERRL. absent: Irregular, Unequal - ENT Exam ENT Exam: Mucous Membranes Moist Assessment and Plan - Assessment and Plan (Free Text) Assessment: 81 year old female presenting with left leg pain. Plan: 1. B/L Lower Extremity Cellulitus and fungal pedal infection - Vancomycin - Rocephin -Clotrimazole Cream. - ID consulted. Rec's appreciated. 2. Chronic DVT of left leg -Continue Lovenox -Chest ct showed a 1.7x 1.2 cm hypodense nodular fluid collection and recommended a u/s followup. U/S was negative . 3. Atrial Flutter - Resolved after IVF were administered. Patient shows no atrial flutter on monitor. Telemetry d/c'ed. -Will continue to monitor closely. 4. Thrombocytopenia - Patient has baseline thrombocytopenia, continue to trend. Consult if needed. 5. Peripheral Arterial Disease - Arterial doppler studies - Tylenol for pain control GI prophylaxis -Protonix
--- NOTE | 2017-06-17 17:31 | CP.PCM.PN ---
Subjective - Date & Time of Evaluation Date of Evaluation: 06/17/17 Time of Evaluation: 10:25 - Subjective Subjective: Feeling better, no fevers overnight, less pain in the legs. Objective - Vital Signs/Intake and Output Vital Signs (last 24 hours): Temp Pulse Resp BP Pulse Ox 98.4 F 71 20 125/71 98 06/17/17 06:00 06/17/17 06:00 06/17/17 06:00 06/17/17 06:00 06/17/17 06:00 Intake and Output: 06/17/17 06/17/17 06:59 18:59 Intake Total 240 Output Total 675 Balance -435 - Medications Medications: Current Medications Acetaminophen (Tylenol 325mg Tab) 650 mg PO Q6H PRN PRN Reason: Fever >100.4 F Last Admin: 06/16/17 23:25 Dose: 650 mg Clotrimazole (Lotrimin 1%) 0 gm TOP BID [facility] Last Admin: 06/16/17 19:08 Dose: 1 applic Enoxaparin Sodium (Lovenox) 40 mg SC DAILY [facility] PRN Reason: Protocol Ceftriaxone Sodium (Rocephin 1 Gram Ivpb) 1 gm in 100 mls @ 100 mls/hr IVPB DAILY [facility] PRN Reason: Protocol Last Admin: 06/16/17 09:49 Dose: 100 mls/hr Vancomycin HCl (Vancomycin 1gm) 1 gm in 250 mls @ 167 mls/hr IVPB DAILY [facility] PRN Reason: Protocol Last Admin: 06/16/17 09:49 Dose: 167 mls/hr Pantoprazole Sodium (Protonix Ec Tab) 40 mg PO 0600 [facility] Last Admin: 06/17/17 06:34 Dose: 40 mg - Labs Labs: 06/17/17 06:00 06/17/17 06:00 PT 11.4 Seconds (9.9-11.8) 06/14/17 16:15 INR 1.06 (0.93-1.08) 06/14/17 16:15 APTT 25.8 Seconds (23.7-30.8) 06/14/17 16:15 - Constitutional Appears: Non-toxic, No Acute Distress - Head Exam Head Exam: NORMAL INSPECTION - ENT Exam ENT Exam: Mucous Membranes Moist - Neck Exam Neck Exam: absent: Meningismus - Respiratory Exam Respiratory Exam: Decreased Breath Sounds - Cardiovascular Exam Cardiovascular Exam: +S1, +S2 - GI/Abdominal Exam GI & Abdominal Exam: Soft. absent: Tenderness - Extremities Exam Additional comments: both legs with scaly lesions Assessment and Plan - Assessment and Plan (Free Text) Plan: Assessment bilateral lower extemity xerosis with probably skin and skin structure infection with associated gram positive cocci in chains bacteremia and tinea pedis coagulase negative staph in one of 4 bottles, probably contamination bioprosthetic aortic valve replacement DVT S/P IVC filter placement paroxysmal atrial fibrillation chronic anemia left breast CA S/P left mastectomy Plan continue Vancomycin and Rocephin and Clotrimazole cream (day 3); follow up repeat blood cx from yesterday; follow up 2D echo; follow up Podiatry evaluation and recommendations will continue to monitor clinically
--- NOTE | 2017-06-17 19:21 | CP.PCM.CON ---
<Richard Regan - Last Filed: 06/17/17 19:19> History of Present Illness - History of Present Illness History of Present Illness: Two attempt made to see pt today, however was undergoing imaging. Will see pt in AM for evaluation. Past Patient History - Infectious Disease Hx of Infectious Diseases: None - Tetanus Immunizations Tetanus Immunization: Unknown - Past Social History Smoking Status: Never Smoked - CARDIAC Hx Cardiac Disorders: Yes (ivc filter hx dvt) Hx Hypertension: Yes - PULMONARY Hx Respiratory Disorders: No - NEUROLOGICAL Hx Neurological Disorder: No - HEENT Hx HEENT Problems: No - RENAL Hx Chronic Kidney Disease: No - ENDOCRINE/METABOLIC Hx Endocrine Disorders: No - HEMATOLOGICAL/ONCOLOGICAL Hx Blood Disorders: Yes (thrombocytopenia) Hx Anemia: Yes (blood transfusion) Hx Cancer: Yes (left breast ca with lymph nodes) Hx Chemotherapy: (pt denies chemo and radiation) - INTEGUMENTARY Hx Dermatological Problems: Yes Other/Comment: cellulitis. ble +1 edema - MUSCULOSKELETAL/RHEUMATOLOGICAL Hx Arthritis: Yes - GASTROINTESTINAL Hx Gastrointestinal Disorders: Yes (HX GI BLEED, weight loss) - GENITOURINARY/GYNECOLOGICAL Hx Genitourinary Disorders: Yes Hx Urinary Tract Infection: Yes - PSYCHIATRIC Hx Psychophysiologic Disorder: No Hx Substance Use: No - SURGICAL HISTORY Hx Mastectomy: Yes (LEFT) Hx Open Heart Surgery: Yes Hx Valve Replacement: Yes Other/Comment: IVC FILTER - ANESTHESIA Hx Anesthesia: Yes Hx Anesthesia Reactions: No Hx Malignant Hyperthermia: No Meds Allergies/Adverse Reactions: Allergies Allergy/AdvReac Type Severity Reaction Status Date / Time No Known Allergies Allergy Verified 06/14/17 15:47 - Medications Medications: Current Medications Acetaminophen (Tylenol 325mg Tab) 650 mg PO Q6H PRN PRN Reason: Fever >100.4 F Last Admin: 06/16/17 23:25 Dose: 650 mg Clotrimazole (Lotrimin 1%) 0 gm TOP BID [facility] Last Admin: 06/17/17 09:52 Dose: 1 applic Enoxaparin Sodium (Lovenox) 40 mg SC DAILY [facility] PRN Reason: Protocol Last Admin: 06/17/17 09:53 Dose: 40 mg Ceftriaxone Sodium (Rocephin 1 Gram Ivpb) 1 gm in 100 mls @ 100 mls/hr IVPB DAILY [facility] PRN Reason: Protocol Last Admin: 06/17/17 09:53 Dose: 100 mls/hr Vancomycin HCl (Vancomycin 1gm) 1 gm in 250 mls @ 167 mls/hr IVPB DAILY [facility] PRN Reason: Protocol Last Admin: 06/17/17 09:53 Dose: 167 mls/hr Pantoprazole Sodium (Protonix Ec Tab) 40 mg PO 0600 [facility] Last Admin: 06/17/17 06:34 Dose: 40 mg Results - Vital Signs Recent Vital Signs: Last Vital Signs Temp 97.6 F 06/17/17 16:34 Pulse 76 06/17/17 16:34 Resp 20 06/17/17 16:34 BP 111/68 06/17/17 16:34 Pulse Ox 90 L 06/17/17 16:34 - Labs Result Diagrams: 06/17/17 06:00 06/17/17 06:00 Labs: Laboratory Results - last 24 hr 06/17/17 06/17/17 06/17/17 06:00 06:00 06:00 WBC 3.1 L D RBC 4.05 Hgb 11.9 L Hct 38.5 MCV 95.1 MCH 29.4 MCHC 30.9 L RDW 14.3 Plt Count 80 L MPV 9.6 Gran % 56.9 Lymph % (Auto) 28.6 [place] % (Auto) 10.0 H Eos % (Auto) 3.5 Baso % (Auto) 1.0 Gran # 1.77 Lymph # 0.9 L [place] # 0.3 Eos # 0.1 Baso # 0.03 Sodium 142 Potassium 4.3 Chloride 105 Carbon Dioxide 32 Anion Gap 9 L BUN 7 Creatinine 0.6 L Est GFR ( Amer) > 60 Est GFR (Non-Af Amer) > 60 Random Glucose 75 Calcium 8.7 Total Bilirubin 0.5 AST 22 ALT 24 Alkaline Phosphatase 52 Total Protein 5.4 L Albumin 3.0 Globulin 2.4 Albumin/Globulin Ratio 1.3 TSH 3rd Generation 3.95 <Gilson Partida - Last Filed: 06/18/17 09:36> Meds - Medications Medications: Current Medications Acetaminophen (Tylenol 325mg Tab) 650 mg PO Q6H PRN PRN Reason: Fever >100.4 F Last Admin: 06/16/17 23:25 Dose: 650 mg Clotrimazole (Lotrimin 1%) 0 gm TOP BID [facility] Last Admin: 06/17/17 19:21 Dose: 1 applic Enoxaparin Sodium (Lovenox) 40 mg SC DAILY [facility] PRN Reason: Protocol Last Admin: 06/17/17 09:53 Dose: 40 mg Ceftriaxone Sodium (Rocephin 1 Gram Ivpb) 1 gm in 100 mls @ 100 mls/hr IVPB DAILY [facility] PRN Reason: Protocol Last Admin: 06/17/17 09:53 Dose: 100 mls/hr Vancomycin HCl (Vancomycin 1gm) 1 gm in 250 mls @ 167 mls/hr IVPB DAILY [facility] PRN Reason: Protocol Last Admin: 06/17/17 09:53 Dose: 167 mls/hr Pantoprazole Sodium (Protonix Ec Tab) 40 mg PO 0600 [facility] Last Admin: 06/17/17 06:34 Dose: 40 mg Results - Vital Signs Recent Vital Signs: Last Vital Signs Temp 97.9 F 06/18/17 07:30 Pulse 75 06/18/17 07:30 Resp 18 06/18/17 07:30 BP 122/64 06/18/17 07:30 Pulse Ox 98 06/18/17 07:30 - Labs Result Diagrams: 06/18/17 07:20 06/18/17 07:20 Labs: Laboratory Results - last 24 hr 06/18/17 06/18/17 07:20 07:20 WBC 3.0 L RBC 3.94 Hgb 11.6 L Hct 37.1 MCV 94.2 MCH 29.4 MCHC 31.3 RDW 14.3 Plt Count 71 L MPV 9.4 Gran % 57.4 Lymph % (Auto) 30.9 [place] % (Auto) 8.0 H Eos % (Auto) 3.0 Baso % (Auto) 0.7 Gran # 1.73 Lymph # 0.9 L [place] # 0.2 Eos # 0.1 Baso # 0.02 Sodium 141 Potassium 4.0 Chloride 106 Carbon Dioxide 30 Anion Gap 9 L BUN 8 Creatinine 0.6 L Est GFR ( Amer) > 60 Est GFR (Non-Af Amer) > 60 Random Glucose 87 Calcium 8.9 Total Bilirubin 0.7 AST 29 ALT 19 Alkaline Phosphatase 57 Total Protein 5.6 L Albumin 3.1 Globulin 2.4 Albumin/Globulin Ratio 1.3 Attending/Attestation - Attestation I have personally seen and examined this patient.: Yes I have fully participated in the care of the patient.: Yes I have reviewed all pertinent clinical information: Yes
[2017-06-18 07:38] LABS: BASO # 0.02 K/mm3 (0.0-2.0); BASO % 0.7 % (0.0-3.0); EOS # 0.1 (0.0-0.7); GRAN # 1.73 (1.4-6.5); GRAN % 57.4 % (50.0-68.0); HEMATOCRIT 37.1 % (36.0-48.0); LYMPH # 0.9 (1.2-3.4); LYMPH % 30.9 % (22.0-35.0); MEAN CELL VOLUME 94.2 fl (80.0-105.0); MEAN CORPUSCULAR HEMOGLOBIN 29.4 pg (25.0-35.0); MEAN CORPUSCULAR HGB CONC 31.3 g/dl (31.0-37.0); MEAN PLATELET VOLUME 9.4 fl (7.0-11.0); MONO # 0.2 (0.1-0.6); RED CELL DISTRIBUTION WIDTH 14.3 % (11.5-14.5)
[2017-06-18 07:55] LABS: ALB/GLOB RATIO 1.3 (1.1-1.8); ALKALINE PHOSPHATASE 57 U/L (38-126); ALT/SGPT 19 U/L (7-56); AST/SGOT 29 U/L (14-36); BILIRUBIN,TOTAL 0.7 mg/dL (0.2-1.3); BLOOD UREA NITROGEN 8 mg/dL (7-21); CALCIUM 8.9 mg/dL (8.4-10.5); CARBON DIOXIDE 30 mmol/L (21-33); CHLORIDE 106 mmol/L (98-107); GFR AFRICAN-AMERICAN > 60; GLUCOSE,RANDOM 87 mg/dL (70-110); SODIUM 141 mmol/L (132-148); TOTAL PROTEIN 5.6 g/dL (5.8-8.3)
[2017-06-18 10:26] LABS: INR 0.98 (0.93-1.08)
[2017-06-18] MEDS: Enoxaparin 40 mg Syringe SC SCH (10:30)
[2017-06-18] MEDS: Vancomycin 1gm in NS 250ml 1 GM/250 ML BAG IVPB SCH (10:30)
[2017-06-18] MEDS: cefTRIAXone 1 gm 1 GM/100 ML BAG IVPB SCH (10:30)
--- NOTE | 2017-06-18 11:30 | CP.PCM.CON ---
<Ciaran Raymond - Last Filed: 06/18/17 11:21> History of Present Illness - History of Present Illness History of Present Illness: 81 year old female with PMH of paroxysmal atrial fibrillation, chronic anemia, left breast CA S/P left mastectomy consulted for bilaterally LE cellulitis. Patient is seen sitting comfortably in chair, AAOx3, and in NAD. Patient is not in a good mood at the moment. She is seen wearing odorous shoes without socks. She reports no pain to LE, reports elongated bothersome nails. Denies n/v/sob/cp /chills or f PSH: bioprosthetic aortic valve replacement, DVT S/P IVC filter placement FH: unknown SH: denies smoking, drinking, or elicited drug use ALL: none MEDS: see medication list Past Patient History - Infectious Disease Hx of Infectious Diseases: None - Tetanus Immunizations Tetanus Immunization: Unknown - Past Social History Smoking Status: Never Smoked - CARDIAC Hx Cardiac Disorders: Yes (ivc filter hx dvt) Hx Hypertension: Yes - PULMONARY Hx Respiratory Disorders: No - NEUROLOGICAL Hx Neurological Disorder: No - HEENT Hx HEENT Problems: No - RENAL Hx Chronic Kidney Disease: No - ENDOCRINE/METABOLIC Hx Endocrine Disorders: No - HEMATOLOGICAL/ONCOLOGICAL Hx Blood Disorders: Yes (thrombocytopenia) Hx Anemia: Yes (blood transfusion) Hx Cancer: Yes (left breast ca with lymph nodes) Hx Chemotherapy: (pt denies chemo and radiation) - INTEGUMENTARY Hx Dermatological Problems: Yes Other/Comment: cellulitis. ble +1 edema - MUSCULOSKELETAL/RHEUMATOLOGICAL Hx Arthritis: Yes - GASTROINTESTINAL Hx Gastrointestinal Disorders: Yes (HX GI BLEED, weight loss) - GENITOURINARY/GYNECOLOGICAL Hx Genitourinary Disorders: Yes Hx Urinary Tract Infection: Yes - PSYCHIATRIC Hx Psychophysiologic Disorder: No Hx Substance Use: No - SURGICAL HISTORY Hx Mastectomy: Yes (LEFT) Hx Open Heart Surgery: Yes Hx Valve Replacement: Yes Other/Comment: IVC FILTER - ANESTHESIA Hx Anesthesia: Yes Hx Anesthesia Reactions: No Hx Malignant Hyperthermia: No Meds Allergies/Adverse Reactions: Allergies Allergy/AdvReac Type Severity Reaction Status Date / Time No Known Allergies Allergy Verified 06/14/17 15:47 - Medications Medications: Current Medications Acetaminophen (Tylenol 325mg Tab) 650 mg PO Q6H PRN PRN Reason: Fever >100.4 F Last Admin: 06/16/17 23:25 Dose: 650 mg Clotrimazole (Lotrimin 1%) 0 gm TOP BID [facility] Last Admin: 06/17/17 19:21 Dose: 1 applic Enoxaparin Sodium (Lovenox) 40 mg SC DAILY [facility] PRN Reason: Protocol Last Admin: 06/18/17 10:30 Dose: 40 mg Ceftriaxone Sodium (Rocephin 1 Gram Ivpb) 1 gm in 100 mls @ 100 mls/hr IVPB DAILY [facility] PRN Reason: Protocol Last Admin: 06/18/17 10:30 Dose: 100 mls/hr Vancomycin HCl (Vancomycin 1gm) 1 gm in 250 mls @ 167 mls/hr IVPB DAILY [facility] PRN Reason: Protocol Last Admin: 06/18/17 10:30 Dose: 167 mls/hr Pantoprazole Sodium (Protonix Ec Tab) 40 mg PO 0600 [facility] Last Admin: 06/17/17 06:34 Dose: 40 mg Physical Exam - Constitutional Appears: Well, Non-toxic, No Acute Distress - Extremities Exam Additional comments: Vasc: DP and PT palpable, CFT diminished, no edema noted Ortho: MM is 4/5 in dorsiflexion, plantarflexion, inversion, and eversion, no pain with palpation the LE bilaterally Neuro: gross sensation slightly diminished bilaterally Derm: discoloration noted to the LE, no streaking, no erythema, no open lesions noted, elongated, hyperkeratoic, mycotic thick nails x10 - Neurological Exam Neurological exam: Alert, Oriented x3 - Psychiatric Exam Psychiatric exam: Normal Affect, Normal Mood Results - Vital Signs Recent Vital Signs: Last Vital Signs Temp 97.9 F 06/18/17 07:30 Pulse 75 06/18/17 07:30 Resp 18 06/18/17 07:30 BP 122/64 06/18/17 07:30 Pulse Ox 98 06/18/17 07:30 - Labs Result Diagrams: 06/18/17 07:20 06/18/17 07:20 Labs: Laboratory Results - last 24 hr 06/18/17 06/18/17 06/18/17 07:20 07:20 10:00 WBC 3.0 L RBC 3.94 Hgb 11.6 L Hct 37.1 MCV 94.2 MCH 29.4 MCHC 31.3 RDW 14.3 Plt Count 71 L MPV 9.4 Gran % 57.4 Lymph % (Auto) 30.9 [place] % (Auto) 8.0 H Eos % (Auto) 3.0 Baso % (Auto) 0.7 Gran # 1.73 Lymph # 0.9 L [place] # 0.2 Eos # 0.1 Baso # 0.02 PT 10.6 INR 0.98 Sodium 141 Potassium 4.0 Chloride 106 Carbon Dioxide 30 Anion Gap 9 L BUN 8 Creatinine 0.6 L Est GFR ( Amer) > 60 Est GFR (Non-Af Amer) > 60 Random Glucose 87 Calcium 8.9 Total Bilirubin 0.7 AST 29 ALT 19 Alkaline Phosphatase 57 Total Protein 5.6 L Albumin 3.1 Globulin 2.4 Albumin/Globulin Ratio 1.3 Assessment & Plan - Assessment and Plan (Free Text) Assessment: 81 year old female with PMH of paroxysmal atrial fibrillation, chronic anemia, left breast CA S/P left mastectomy present with stasis changes vs resolving cellulitis and bothersome elongated nails x10. Plan: Patient examined and evaluated Charts, labs, vitals reviewed Discussed plan in detail with attending Dr. Partida (afebrile, WBC=3.0) Elongated nails x10 debrided to normal length using a nail nipper. Right hallux distal tip was nicked with the nipper. Nicked lesion cleansed with saline and betadine, bandage dressed. Patient encouraged to wear socks at all times with shoes. Socks placed on patient. Will order surgical shoe for patient to be worn in replacement of non-hygienic, odorous shoes. All the moment, patient does not need local wound care for the bilaterally legs. Will continue to follow in house. <Gilson Partida - Last Filed: 06/19/17 09:19> Meds - Medications Medications: Current Medications Acetaminophen (Tylenol 325mg Tab) 650 mg PO Q6H PRN PRN Reason: Fever >100.4 F Last Admin: 06/16/17 23:25 Dose: 650 mg Clotrimazole (Lotrimin 1%) 0 gm TOP BID [facility] Last Admin: 06/18/17 18:25 Dose: 1 applic Enoxaparin Sodium (Lovenox) 40 mg SC DAILY [facility] PRN Reason: Protocol Last Admin: 06/18/17 10:30 Dose: 40 mg Famotidine (Pepcid) 20 mg PO 1000,2200 [facility] Last Admin: 06/18/17 21:32 Dose: Not Given Ceftriaxone Sodium (Rocephin 1 Gram Ivpb) 1 gm in 100 mls @ 100 mls/hr IVPB DAILY [facility] PRN Reason: Protocol Last Admin: 06/18/17 10:30 Dose: 100 mls/hr Vancomycin HCl (Vancomycin 1gm) 1 gm in 250 mls @ 167 mls/hr IVPB DAILY [facility] PRN Reason: Protocol Last Admin: 06/18/17 10:30 Dose: 167 mls/hr Mupirocin (Bactroban Ointment) 0 gm TOP BID [facility] Last Admin: 06/18/17 18:31 Dose: 1 applic Warfarin Sodium (Coumadin) 7.5 mg PO 1800 [facility] PRN Reason: Protocol Last Admin: 06/18/17 18:24 Dose: 7.5 mg Results - Vital Signs Recent Vital Signs: Last Vital Signs Temp 97.6 F 06/19/17 07:30 Pulse 76 06/19/17 07:30 Resp 18 06/19/17 07:30 BP 123/70 06/19/17 07:30 Pulse Ox 98 06/19/17 07:30 - Labs Result Diagrams: 06/19/17 07:10 06/19/17 07:10 Labs: Laboratory Results - last 24 hr 06/18/17 06/19/17 06/19/17 10:00 07:10 07:10 WBC 3.1 L RBC 4.27 Hgb 12.7 Hct 40.1 MCV 93.9 MCH 29.7 MCHC 31.7 RDW 14.4 Plt Count 82 L MPV 9.4 Gran % 57.9 Lymph % (Auto) 28.6 [place] % (Auto) 9.0 H Eos % (Auto) 3.9 Baso % (Auto) 0.6 Gran # 1.80 Lymph # 0.9 L [place] # 0.3 Eos # 0.1 Baso # 0.02 PT 10.6 INR 0.98 Sodium 142 Potassium 4.6 Chloride 105 Carbon Dioxide 32 Anion Gap 10 BUN 10 Creatinine 0.5 L Est GFR ( Amer) > 60 Est GFR (Non-Af Amer) > 60 Random Glucose 87 Calcium 9.3 Total Bilirubin 0.8 AST 42 H D ALT 34 Alkaline Phosphatase 60 Total Protein 6.0 Albumin 3.5 Globulin 2.5 Albumin/Globulin Ratio 1.4 06/19/17 07:10 WBC RBC Hgb Hct MCV MCH MCHC RDW Plt Count MPV Gran % Lymph % (Auto) [place] % (Auto) Eos % (Auto) Baso % (Auto) Gran # Lymph # [place] # Eos # Baso # PT 11.1 INR 1.03 Sodium Potassium Chloride Carbon Dioxide Anion Gap BUN Creatinine Est GFR ( Amer) Est GFR (Non-Af Amer) Random Glucose Calcium Total Bilirubin AST ALT Alkaline Phosphatase Total Protein Albumin Globulin Albumin/Globulin Ratio Attending/Attestation - Attestation I have personally seen and examined this patient.: Yes I have fully participated in the care of the patient.: Yes I have reviewed all pertinent clinical information: Yes
[2017-06-18] MEDS: Clotrimazole 1% Cream(30 gm) TOP SCH ×2 (11:35→18:25)
--- NOTE | 2017-06-18 13:12 | CP.PCM.PN ---
Subjective - Date & Time of Evaluation Date of Evaluation: 06/18/17 Time of Evaluation: 06:10 - Subjective Subjective: Patient seen and examined at bedside. Per nursing no acute events occurred overnight. The patient denies any chest pain ,shortness of breath, nausea, vomiting, lightheadedness, dizziness, sore throat, or any other complaints. Objective - Vital Signs/Intake and Output Vital Signs (last 24 hours): Temp Pulse Resp BP Pulse Ox 97.9 F 75 18 122/64 98 06/18/17 07:30 06/18/17 07:30 06/18/17 07:30 06/18/17 07:30 06/18/17 07:30 Intake and Output: 06/18/17 06/18/17 06:59 18:59 Intake Total 480 Output Total 1 Balance 479 - Medications Medications: Current Medications Acetaminophen (Tylenol 325mg Tab) 650 mg PO Q6H PRN PRN Reason: Fever >100.4 F Last Admin: 06/16/17 23:25 Dose: 650 mg Clotrimazole (Lotrimin 1%) 0 gm TOP BID [facility] Last Admin: 06/18/17 11:35 Dose: 1 applic Enoxaparin Sodium (Lovenox) 40 mg SC DAILY [facility] PRN Reason: Protocol Last Admin: 06/18/17 10:30 Dose: 40 mg Ceftriaxone Sodium (Rocephin 1 Gram Ivpb) 1 gm in 100 mls @ 100 mls/hr IVPB DAILY [facility] PRN Reason: Protocol Last Admin: 06/18/17 10:30 Dose: 100 mls/hr Vancomycin HCl (Vancomycin 1gm) 1 gm in 250 mls @ 167 mls/hr IVPB DAILY [facility] PRN Reason: Protocol Last Admin: 06/18/17 10:30 Dose: 167 mls/hr Mupirocin (Bactroban Ointment) 0 gm TOP BID [facility] Pantoprazole Sodium (Protonix Ec Tab) 40 mg PO 0600 [facility] Last Admin: 06/17/17 06:34 Dose: 40 mg - Labs Labs: 06/18/17 07:20 06/18/17 07:20 PT 10.6 Seconds (9.9-11.8) 06/18/17 10:00 INR 0.98 (0.93-1.08) 06/18/17 10:00 APTT 25.8 Seconds (23.7-30.8) 06/14/17 16:15 - Head Exam Head Exam: ATRAUMATIC, NORMAL INSPECTION - Eye Exam Eye Exam: EOMI, PERRL. absent: Periorbital tenderness Pupil Exam: NORMAL ACCOMODATION, PERRL. absent: Irregular, Unequal - ENT Exam ENT Exam: Mucous Membranes Moist, Normal Exam - Neck Exam Neck Exam: Normal Inspection. absent: Lymphadenopathy, Thyromegaly - Respiratory Exam Respiratory Exam: Clear to Ausculation Bilateral, NORMAL BREATHING PATTERN. absent: Accessory Muscle Use, Chest Wall Tenderness, Respiratory Distress - Cardiovascular Exam Cardiovascular Exam: REGULAR RHYTHM, RRR, +S1, +S2. absent: Gallop, Rubs - GI/Abdominal Exam GI & Abdominal Exam: Soft, Normal Bowel Sounds. absent: Guarding, Rigid, Tenderness - Extremities Exam Extremities Exam: absent: Normal Inspection Additional comments: bilateral leg fungal infections. - Neurological Exam Neurological Exam: Alert (AOX2), Awake, CN II-XII Intact - Psychiatric Exam Psychiatric exam: Normal Affect, Normal Mood. absent: Anxious - Skin Skin Exam: Dry, Intact Assessment and Plan - Assessment and Plan (Free Text) Assessment: 81 year old female presenting with left leg pain. Plan: 1. B/L Lower Extremity Cellulitus and fungal pedal infection - Vancomycin - Rocephin -Clotrimazole Cream. - ID consulted. Rec's appreciated. -Podiatry pending. Will f/u with rec's tomorrow. -Pt eval recommended TCU eval. 2. Chronic DVT of left leg -Continue Lovenox -Chest ct showed a 1.7x 1.2 cm hypodense nodular fluid collection and recommended a u/s followup. U/S was negative . 3. Atrial Flutter - Resolved after IVF were administered. Patient shows no atrial flutter on monitor. Telemetry d/c'ed. -Will continue to monitor closely. -Echo ordered. Will f/u with rec's tomorrow. 4. Thrombocytopenia - Patient has baseline thrombocytopenia, continue to trend. Consult if needed. -No intervention at this time. 5. Peripheral Arterial Disease - Arterial doppler studies negative. - Tylenol for pain control GI prophylaxis -Protonix
--- NOTE | 2017-06-18 13:38 | PCM.PAD ---
PAD Screening - Peripheral Artery Disease Assessment When you walk, do you experience aching, cramping or pain in your legs, thighs, or buttocks: Yes When do you feel the pain: After walking 1 block If you have pain, does the pain subside with rest: Yes Have you ever been diagnosed with Peripheral Vascular Disease or been diagnosed as having poor circulation: No Have you ever had surgery, balloon procedures or stents in your heart, kidneys, belly, legs, or arms: No Do you have any painful sores or ulcers on legs or feet that do not heal: No Are your legs discolored or bluish: Yes PVD Past Medical & Familial Hx - Past Medical History Hx Hypertension: Yes
--- NOTE | 2017-06-18 15:07 | CP.PCM.PN ---
<Zaid No - Last Filed: 06/18/17 20:14> Subjective - Date & Time of Evaluation Date of Evaluation: 06/18/17 Time of Evaluation: 07:04 - Subjective Subjective: Patient was seen and examined at bedside this morning. The patient denies any chest pain, shortness of breath, nausea, vomiting, abdominal pain, lightheadedness, dizziness, changes in vision, constipation, diarrhea, or any other complaints. Objective - Vital Signs/Intake and Output Vital Signs (last 24 hours): Temp Pulse Resp BP Pulse Ox 97.9 F 75 18 122/64 98 06/18/17 07:30 06/18/17 07:30 06/18/17 07:30 06/18/17 07:30 06/18/17 07:30 Intake and Output: 06/18/17 06/18/17 06:59 18:59 Intake Total 480 480 Output Total 1 Balance 479 480 - Medications Medications: Current Medications Acetaminophen (Tylenol 325mg Tab) 650 mg PO Q6H PRN PRN Reason: Fever >100.4 F Last Admin: 06/16/17 23:25 Dose: 650 mg Clotrimazole (Lotrimin 1%) 0 gm TOP BID [facility] Last Admin: 06/18/17 11:35 Dose: 1 applic Enoxaparin Sodium (Lovenox) 40 mg SC DAILY [facility] PRN Reason: Protocol Last Admin: 06/18/17 10:30 Dose: 40 mg Ceftriaxone Sodium (Rocephin 1 Gram Ivpb) 1 gm in 100 mls @ 100 mls/hr IVPB DAILY [facility] PRN Reason: Protocol Last Admin: 06/18/17 10:30 Dose: 100 mls/hr Vancomycin HCl (Vancomycin 1gm) 1 gm in 250 mls @ 167 mls/hr IVPB DAILY [facility] PRN Reason: Protocol Last Admin: 06/18/17 10:30 Dose: 167 mls/hr Mupirocin (Bactroban Ointment) 0 gm TOP BID [facility] Pantoprazole Sodium (Protonix Ec Tab) 40 mg PO 0600 [facility] Last Admin: 06/17/17 06:34 Dose: 40 mg - Labs Labs: 06/18/17 07:20 06/18/17 07:20 PT 10.6 Seconds (9.9-11.8) 06/18/17 10:00 INR 0.98 (0.93-1.08) 06/18/17 10:00 APTT 25.8 Seconds (23.7-30.8) 06/14/17 16:15 - Head Exam Head Exam: ATRAUMATIC, NORMAL INSPECTION, NORMOCEPHALIC - Eye Exam Eye Exam: EOMI, Normal appearance, PERRL. absent: Periorbital tenderness Pupil Exam: NORMAL ACCOMODATION, PERRL. absent: Irregular, Unequal - ENT Exam ENT Exam: Mucous Membranes Moist - Respiratory Exam Respiratory Exam: Clear to Ausculation Bilateral, NORMAL BREATHING PATTERN. absent: Chest Wall Tenderness, Prolonged Expiratory Phase - Cardiovascular Exam Cardiovascular Exam: REGULAR RHYTHM, RRR, +S1, +S2. absent: Diastolic murmur - GI/Abdominal Exam GI & Abdominal Exam: Soft, Normal Bowel Sounds. absent: Rigid, Tenderness, Hyperactive Bowel Sounds - Extremities Exam Extremities Exam: Full ROM Additional comments: fungal infection and cellulitis b/l le. - Back Exam Back Exam: NORMAL INSPECTION. absent: CVA tenderness (L), CVA tenderness (R), paraspinal tenderness - Neurological Exam Neurological Exam: Alert, Awake. absent: Oriented x3 - Psychiatric Exam Psychiatric exam: Normal Affect, Normal Mood - Skin Skin Exam: Dry, Erythema Assessment and Plan - Assessment and Plan (Free Text) Assessment: 81 year old female presenting with left leg pain. Plan: 1. B/L Lower Extremity Cellulitus and fungal pedal infection - Vancomycin - Rocephin -Clotrimazole Cream. - ID consulted. Rec's appreciated. -Podiatry pending. Will f/u with rec's tomorrow. -TCU approved. Discharge to TCU pending ECHO results. Dr. Pritchett made aware of clinical situation via phone. 2. Chronic DVT of left leg -Continue Lovenox -Chest ct showed a 1.7x 1.2 cm hypodense nodular fluid collection and recommended a u/s followup. U/S was negative . 3. Atrial Flutter - Resolved after IVF were administered. Patient shows no atrial flutter on monitor. Telemetry d/c'ed. -Will continue to monitor closely. -Spoke with Dr. Pritchett who says the patient isn't on any anti-coagulation and has a history of non-compliance. Will discuss options with patients. -Echo ordered. Will f/u with rec's tomorrow. 4. Thrombocytopenia - Patient has baseline thrombocytopenia, continue to trend. Consult if needed. -No intervention at this time. 5. Peripheral Arterial Disease - Arterial doppler studies negative. - Tylenol for pain control GI prophylaxis -Protonix <Indu Knapp - Last Filed: 06/19/17 07:12> Objective - Vital Signs/Intake and Output Vital Signs (last 24 hours): Temp Pulse Resp BP Pulse Ox 97.8 F 80 20 136/76 97 06/18/17 16:34 06/18/17 16:34 06/18/17 16:34 06/18/17 16:34 06/18/17 16:34 Intake and Output: 06/19/17 06/19/17 06:59 18:59 Intake Total 420 Balance 420 - Medications Medications: Current Medications Acetaminophen (Tylenol 325mg Tab) 650 mg PO Q6H PRN PRN Reason: Fever >100.4 F Last Admin: 06/16/17 23:25 Dose: 650 mg Clotrimazole (Lotrimin 1%) 0 gm TOP BID [facility] Last Admin: 06/18/17 18:25 Dose: 1 applic Enoxaparin Sodium (Lovenox) 40 mg SC DAILY [facility] PRN Reason: Protocol Last Admin: 06/18/17 10:30 Dose: 40 mg Famotidine (Pepcid) 20 mg PO 1000,2200 [facility] Last Admin: 06/18/17 21:32 Dose: Not Given Ceftriaxone Sodium (Rocephin 1 Gram Ivpb) 1 gm in 100 mls @ 100 mls/hr IVPB DAILY [facility] PRN Reason: Protocol Last Admin: 06/18/17 10:30 Dose: 100 mls/hr Vancomycin HCl (Vancomycin 1gm) 1 gm in 250 mls @ 167 mls/hr IVPB DAILY [facility] PRN Reason: Protocol Last Admin: 06/18/17 10:30 Dose: 167 mls/hr Mupirocin (Bactroban Ointment) 0 gm TOP BID [facility] Last Admin: 06/18/17 18:31 Dose: 1 applic Warfarin Sodium (Coumadin) 7.5 mg PO 1800 [facility] PRN Reason: Protocol Last Admin: 06/18/17 18:24 Dose: 7.5 mg - Labs Labs: 06/18/17 07:20 06/18/17 07:20 PT 10.6 Seconds (9.9-11.8) 06/18/17 10:00 INR 0.98 (0.93-1.08) 06/18/17 10:00 APTT 25.8 Seconds (23.7-30.8) 06/14/17 16:15 Attending/Attestation - Attestation I have personally seen and examined this patient.: Yes I have fully participated in the care of the patient.: Yes I have reviewed all pertinent clinical information, including history, physical exam and plan: Yes Notes (Text): 06/18/17 81 year old female with past medical history of DVT s/p IVC filter and paroxysmal afib who presented with bilateral lower extremity celluliits. Continue with iv antibiotics as per ID. Podiatry evaluation was requested as well. Arterial dopplers was negative. Venous dopplers report is pending. After discussion with pmd, coumadin is resumed for history of DVT and paroxysmal afib. Issue of medication compliance was discussed with patient. Continue to monitor platelets closely for thrombocytopenia. Indu Knapp MD Hospitalist.
--- NOTE | 2017-06-18 15:45 | CP.PCM.PN ---
Subjective - Date & Time of Evaluation Date of Evaluation: 06/18/17 Time of Evaluation: 11:45 - Subjective Subjective: Comfortable, not in distress, afebrile, less pain in the legs. Objective - Vital Signs/Intake and Output Vital Signs (last 24 hours): Temp Pulse Resp BP Pulse Ox 97.9 F 75 18 122/64 98 06/18/17 07:30 06/18/17 07:30 06/18/17 07:30 06/18/17 07:30 06/18/17 07:30 Intake and Output: 06/18/17 06/18/17 06:59 18:59 Intake Total 480 Output Total 1 Balance 479 - Medications Medications: Current Medications Acetaminophen (Tylenol 325mg Tab) 650 mg PO Q6H PRN PRN Reason: Fever >100.4 F Last Admin: 06/16/17 23:25 Dose: 650 mg Clotrimazole (Lotrimin 1%) 0 gm TOP BID [facility] Last Admin: 06/17/17 19:21 Dose: 1 applic Enoxaparin Sodium (Lovenox) 40 mg SC DAILY [facility] PRN Reason: Protocol Last Admin: 06/17/17 09:53 Dose: 40 mg Ceftriaxone Sodium (Rocephin 1 Gram Ivpb) 1 gm in 100 mls @ 100 mls/hr IVPB DAILY [facility] PRN Reason: Protocol Last Admin: 06/17/17 09:53 Dose: 100 mls/hr Vancomycin HCl (Vancomycin 1gm) 1 gm in 250 mls @ 167 mls/hr IVPB DAILY [facility] PRN Reason: Protocol Last Admin: 06/17/17 09:53 Dose: 167 mls/hr Pantoprazole Sodium (Protonix Ec Tab) 40 mg PO 0600 [facility] Last Admin: 06/17/17 06:34 Dose: 40 mg - Labs Labs: 06/18/17 07:20 06/18/17 07:20 PT 11.4 Seconds (9.9-11.8) 06/14/17 16:15 INR 1.06 (0.93-1.08) 06/14/17 16:15 APTT 25.8 Seconds (23.7-30.8) 06/14/17 16:15 - Constitutional Appears: Non-toxic, No Acute Distress, Cachectic - Head Exam Head Exam: NORMAL INSPECTION - Neck Exam Neck Exam: absent: Meningismus - Respiratory Exam Respiratory Exam: Decreased Breath Sounds - Cardiovascular Exam Cardiovascular Exam: +S1, +S2 - GI/Abdominal Exam GI & Abdominal Exam: Soft. absent: Tenderness - Extremities Exam Additional comments: both legs with scaly skin Assessment and Plan - Assessment and Plan (Free Text) Plan: Assessment bilateral lower extemity xerosis with probably skin and skin structure infection with associated gram positive cocci in chains bacteremia and tinea pedis coagulase negative staph in one of 4 bottles, probably contamination bioprosthetic aortic valve replacement DVT S/P IVC filter placement paroxysmal atrial fibrillation chronic anemia left breast CA S/P left mastectomy Plan continue Vancomycin and Rocephin and Clotrimazole cream (day 4); repeat blood cx from 06/16 are negative; follow up 2D echo; follow up Podiatry evaluation and recommendations will continue to monitor clinically
[2017-06-19 07:16] LABS: BASO # 0.02 K/mm3 (0.0-2.0); BASO % 0.6 % (0.0-3.0); EOS # 0.1 (0.0-0.7); EOS % 3.9 % (1.5-5.0); GRAN # 1.8 (1.4-6.5); GRAN % 57.9 % (50.0-68.0); HEMATOCRIT 40.1 % (36.0-48.0); LYMPH # 0.9 (1.2-3.4); LYMPH % 28.6 % (22.0-35.0); MEAN CELL VOLUME 93.9 fl (80.0-105.0); MEAN CORPUSCULAR HEMOGLOBIN 29.7 pg (25.0-35.0); MEAN CORPUSCULAR HGB CONC 31.7 g/dl (31.0-37.0); MEAN PLATELET VOLUME 9.4 fl (7.0-11.0); MONO # 0.3 (0.1-0.6); RED CELL DISTRIBUTION WIDTH 14.4 % (11.5-14.5); WHITE BLOOD COUNT 3.1 10^3/ul (4.5-11.0)
[2017-06-19 07:23] LABS: INR 1.03 (0.93-1.08)
[2017-06-19 07:26] LABS: ALB/GLOB RATIO 1.4 (1.1-1.8); ALKALINE PHOSPHATASE 60 U/L (38-126); ALT/SGPT 34 U/L (7-56); AST/SGOT 42 U/L (14-36); BILIRUBIN,TOTAL 0.8 mg/dL (0.2-1.3); BLOOD UREA NITROGEN 10 mg/dL (7-21); CALCIUM 9.3 mg/dL (8.4-10.5); CARBON DIOXIDE 32 mmol/L (21-33); CHLORIDE 105 mmol/L (95-110); GFR AFRICAN-AMERICAN > 60; GLUCOSE,RANDOM 87 mg/dL (70-110); POTASSIUM 4.6 mmol/L (3.6-5.0); SODIUM 142 mmol/L (132-148)
[2017-06-19] MEDS: Clotrimazole 1% Cream(30 gm) TOP SCH ×2 (09:41→17:41)
[2017-06-19] MEDS: Enoxaparin 40 mg Syringe SC SCH (09:43)
[2017-06-19] MEDS: Vancomycin 1gm in NS 250ml 1 GM/250 ML BAG IVPB SCH (09:44)
--- NOTE | 2017-06-19 10:57 | CP.PCM.PN ---
Subjective - Date & Time of Evaluation Date of Evaluation: 06/19/17 Time of Evaluation: 06:54 - Subjective Subjective: Patient seen and examined at bedside. Per nursing no acute events occurred overnight. The patient denies any chest pain, shortness of breath, nausea, vomiting, abdominal pain, lightheadedness, dizziness, sore throat, fevers, chills, or any other complaints. Objective - Vital Signs/Intake and Output Vital Signs (last 24 hours): Temp Pulse Resp BP Pulse Ox 97.6 F 76 18 123/70 98 06/19/17 07:30 06/19/17 07:30 06/19/17 07:30 06/19/17 07:30 06/19/17 07:30 Intake and Output: 06/19/17 06/19/17 06:59 18:59 Intake Total 420 Balance 420 - Medications Medications: Current Medications Acetaminophen (Tylenol 325mg Tab) 650 mg PO Q6H PRN PRN Reason: Fever >100.4 F Last Admin: 06/16/17 23:25 Dose: 650 mg Clotrimazole (Lotrimin 1%) 0 gm TOP BID [facility] Last Admin: 06/19/17 09:41 Dose: 1 applic Enoxaparin Sodium (Lovenox) 40 mg SC DAILY [facility] PRN Reason: Protocol Last Admin: 06/19/17 09:43 Dose: 40 mg Famotidine (Pepcid) 20 mg PO 1000,2200 [facility] Last Admin: 06/19/17 09:44 Dose: 20 mg Ceftriaxone Sodium (Rocephin 1 Gram Ivpb) 1 gm in 100 mls @ 100 mls/hr IVPB DAILY [facility] PRN Reason: Protocol Last Admin: 06/18/17 10:30 Dose: 100 mls/hr Vancomycin HCl (Vancomycin 1gm) 1 gm in 250 mls @ 167 mls/hr IVPB DAILY [facility] PRN Reason: Protocol Last Admin: 06/19/17 09:44 Dose: 167 mls/hr Mupirocin (Bactroban Ointment) 0 gm TOP BID [facility] Last Admin: 06/19/17 09:41 Dose: 1 applic Warfarin Sodium (Coumadin) 7.5 mg PO 1800 [facility] PRN Reason: Protocol Last Admin: 06/18/17 18:24 Dose: 7.5 mg - Labs Labs: 06/19/17 07:10 06/19/17 07:10 PT 11.1 Seconds (9.9-11.8) 06/19/17 07:10 INR 1.03 (0.93-1.08) 06/19/17 07:10 APTT 25.8 Seconds (23.7-30.8) 06/14/17 16:15 - Head Exam Head Exam: ATRAUMATIC, NORMAL INSPECTION, NORMOCEPHALIC - Eye Exam Eye Exam: EOMI, Normal appearance, PERRL. absent: Periorbital tenderness Pupil Exam: NORMAL ACCOMODATION, PERRL. absent: Irregular, Unequal - ENT Exam ENT Exam: Mucous Membranes Moist, Normal Exam, Normal Oropharynx. absent: TM's Normal Bilaterally - Neck Exam Neck Exam: Full ROM, Normal Inspection. absent: Lymphadenopathy, Thyromegaly - Respiratory Exam Respiratory Exam: Clear to Ausculation Bilateral, NORMAL BREATHING PATTERN. absent: Accessory Muscle Use, Chest Wall Tenderness, Wheezes, Respiratory Distress - Cardiovascular Exam Cardiovascular Exam: REGULAR RHYTHM, RRR, +S1, +S2. absent: Gallop, Rubs - GI/Abdominal Exam GI & Abdominal Exam: Soft, Normal Bowel Sounds. absent: Guarding, Rigid, Tenderness, Hernia, Hyperactive Bowel Sounds - Extremities Exam Extremities Exam: Full ROM, Normal Capillary Refill. absent: Joint Swelling, Normal Inspection, Pedal Edema, Tenderness Additional comments: b/l erythema and fungal infection lower extremities. - Back Exam Back Exam: NORMAL INSPECTION, paraspinal tenderness. absent: CVA tenderness (L) , CVA tenderness (R) - Neurological Exam Neurological Exam: Alert, Awake, CN II-XII Intact, Normal Gait, Oriented x3. absent: Altered, Reflexes Normal - Psychiatric Exam Psychiatric exam: Normal Affect, Normal Mood - Skin Skin Exam: Dry, Intact. absent: Erythema, Rash, Urticaria Assessment and Plan - Assessment and Plan (Free Text) Assessment: 81 year old female presenting with left leg pain. Plan: 1. B/L Lower Extremity Cellulitus and fungal pedal infection - Vancomycin - Rocephin -Clotrimazole Cream. - ID consulted. Rec's appreciated. -Podiatry rec's appreciated. Surgical shoe's ordered. -TCU approved. Discharge to TCU pending ECHO results. Dr. Pritchett made aware of clinical situation via phone. 2. Chronic DVT of left leg -Coumadin 10mg Daily started. -Will monitor with serial coag's. -Chest ct showed a 1.7x 1.2 cm hypodense nodular fluid collection and recommended a u/s followup. U/S was negative . 3. Atrial Flutter - Resolved after IVF were administered. Patient shows no atrial flutter on monitor. Telemetry d/c'ed. -Will continue to monitor closely. -Spoke with Dr. Pritchett who says the patient isn't on any anti-coagulation and has a history of non-compliance. Will discuss options with patients. -Coumadin 10mg Daily started. -Echo ordered. Will f/u with rec's tomorrow. 4. Thrombocytopenia - Patient has baseline thrombocytopenia, continue to trend. Consult if needed. -No intervention at this time. 5. Peripheral Arterial Disease - Arterial doppler negative. US l/e bilaterally pending. - Tylenol for pain control GI prophylaxis -Protonix
[2017-06-19] MEDS: cefTRIAXone 1 gm 1 GM/100 ML BAG IVPB SCH (12:30)
--- NOTE | 2017-06-19 15:15 | CP.PCM.DIS ---
<Shahram Hogan - Last Filed: 06/19/17 15:18> Provider - Provider Date of Admission: 06/14/17 23:31 Attending physician: Inud Knapp MD Primary care physician: Maximino Pritchett MD Time Spent in preparation of Discharge (in minutes): 45 Hospital Course - Lab Results Lab Results: Micro Results 06/16/17 09:45 Blood-Venous Blood Culture - Preliminary NO GROWTH AFTER 3 DAYS 06/16/17 09:20 Blood-Venous Blood Culture - Preliminary NO GROWTH AFTER 3 DAYS 06/16/17 05:30 Naris MRSA Culture (Admit) - Final MRSA NOT DETECTED 06/15/17 01:30 Urine Urine Culture - Final No Growth (<1,000 CFU/ML) Most Recent Lab Values WBC 3.1 10^3/ul (4.5-11.0) L 06/19/17 07:10 RBC 4.27 10^6/uL (3.5-6.1) 06/19/17 07:10 Hgb 12.7 g/dL (12.0-16.0) 06/19/17 07:10 Hct 40.1 % (36.0-48.0) 06/19/17 07:10 MCV 93.9 fl (80.0-105.0) 06/19/17 07:10 MCH 29.7 pg (25.0-35.0) 06/19/17 07:10 MCHC 31.7 g/dl (31.0-37.0) 06/19/17 07:10 RDW 14.4 % (11.5-14.5) 06/19/17 07:10 Plt Count 82 10^3/uL (120.0-450.0) L 06/19/17 07:10 MPV 9.4 fl (7.0-11.0) 06/19/17 07:10 Gran % 57.9 % (50.0-68.0) 06/19/17 07:10 Lymph % (Auto) 28.6 % (22.0-35.0) 06/19/17 07:10 Sumner % (Auto) 9.0 % (1.0-6.0) H 06/19/17 07:10 Eos % (Auto) 3.9 % (1.5-5.0) 06/19/17 07:10 Baso % (Auto) 0.6 % (0.0-3.0) 06/19/17 07:10 Gran # 1.80 (1.4-6.5) 06/19/17 07:10 Lymph # 0.9 (1.2-3.4) L 06/19/17 07:10 Sumner # 0.3 (0.1-0.6) 06/19/17 07:10 Eos # 0.1 (0.0-0.7) 06/19/17 07:10 Baso # 0.02 K/mm3 (0.0-2.0) 06/19/17 07:10 PT 11.1 Seconds (9.9-11.8) 06/19/17 07:10 INR 1.03 (0.93-1.08) 06/19/17 07:10 APTT 25.8 Seconds (23.7-30.8) 06/14/17 16:15 pO2 50 mm/Hg (30-55) 06/14/17 16:15 VBG pH 7.41 (7.32-7.43) 06/14/17 16:15 VBG pCO2 50.0 (40-60) 06/14/17 16:15 VBG HCO3 31.7 mmol/l (21-28) H 06/14/17 16:15 VBG Total CO2 33.2 mmol.L (22-28) H 06/14/17 16:15 VBG O2 Sat (Calc) 89.7 % (40-65) H 06/14/17 16:15 VBG Base Excess 5.8 mmol/L (0.0-2.0) H 06/14/17 16:15 VBG Potassium 4.1 mmol/L (3.6-5.2) 06/14/17 16:15 Sodium 139.0 mmol/L (132-148) 06/14/17 16:15 Chloride 105.0 mmol/L (98-107) 06/14/17 16:15 Glucose 88 mg/dl (65-105) 06/14/17 16:15 Lactate 1.2 mmol/L (0.7-2.1) 06/14/17 16:15 FiO2 21.0 % 06/14/17 16:15 Sodium 142 mmol/L (132-148) 06/19/17 07:10 Potassium 4.6 mmol/L (3.6-5.0) 06/19/17 07:10 Chloride 105 mmol/L (95-110) 06/19/17 07:10 Carbon Dioxide 32 mmol/L (21-33) 06/19/17 07:10 Anion Gap 10 (10-20) 06/19/17 07:10 BUN 10 mg/dL (7-21) 06/19/17 07:10 Creatinine 0.5 mg/dL (0.7-1.2) L 06/19/17 07:10 Est GFR ( Amer) > 60 06/19/17 07:10 Est GFR (Non-Af Amer) > 60 06/19/17 07:10 Random Glucose 87 mg/dL (70-110) 06/19/17 07:10 Calcium 9.3 mg/dL (8.4-10.5) 06/19/17 07:10 Phosphorus 3.7 mg/dL (2.5-4.5) 06/14/17 16:15 Magnesium 2.1 mg/dL (1.7-2.2) 06/14/17 16:15 Total Bilirubin 0.8 mg/dL (0.2-1.3) 06/19/17 07:10 AST 42 U/L (14-36) H D 06/19/17 07:10 ALT 34 U/L (7-56) 06/19/17 07:10 Alkaline Phosphatase 60 U/L (38-126) 06/19/17 07:10 Lactate Dehydrogenase 815 U/L (333-699) H 06/14/17 16:15 Total Creatine Kinase 70 U/L (35-230) 06/14/17 16:15 Troponin I 0.03 ng/mL D 06/15/17 12:20 NT-Pro-B Natriuret Pep 579 pg/mL (0-450) H 06/14/17 16:15 Total Protein 6.0 g/dL (5.8-8.3) 06/19/17 07:10 Albumin 3.5 g/dL (3.0-4.8) 06/19/17 07:10 Globulin 2.5 gm/dL 06/19/17 07:10 Albumin/Globulin Ratio 1.4 (1.1-1.8) 06/19/17 07:10 Procalcitonin 0.06 NG/ML (0.19-0.49) L 06/15/17 11:15 TSH 3rd Generation 3.95 mIU/mL (0.46-4.68) 06/17/17 06:00 Venous Blood Potassium 4.1 mmol/L (3.6-5.2) 06/14/17 16:15 Urine Color Yellow (YELLOW) 06/15/17 01:30 Urine Appearance Clear (CLEAR) 06/15/17 01:30 Urine pH 7.5 (4.7-8.0) 06/15/17 01:30 Ur Specific [place] <= 1.005 (1.005-1.035) 06/15/17 01:30 Urine Protein Negative mg/dL (<30 mg/dL) 06/15/17 01:30 Urine Glucose (UA) Negative mg/dL (NEGATIVE) 06/15/17 01:30 Urine Ketones Negative mg/dL (NEGATIVE) 06/15/17 01:30 Urine Blood Negative (NEGATIVE) 06/15/17 01:30 Urine Nitrate Negative (NEGATIVE) 06/15/17 01:30 Urine Bilirubin Negative (NEGATIVE) 06/15/17 01:30 Urine Urobilinogen 0.2 E.U./dL (<1 E.U./dL) 06/15/17 01:30 Ur Leukocyte Esterase Negative Ford/uL (NEGATIVE) 06/15/17 01:30 - Hospital Course Hospital Course: 81F with a past medical history of DVT s/p IVC filter,bioprosthetic aortic valve replacement, paroxysmal atrial fibrillation, chronic anemia, thrombocytopenia, left breast ca s/p L mastectomy, presenting to [facility] ED on who was seen in office and sent by her PMD Dr. Pritchett for evaluation of feet and tachycardia. Patient states that the pain in her feet has been present for years however the pain recently worsened which is why she decided to see her PMD at that time. Patient states she has not taken any of her medications for several months. Infectious Disease, and Podiatry came on board as part of the care team for this patient. Podiatry recommended surgical shoe for patient to be worn in replacement of non-hygienic, odorous shoes. Infectious disease put the patient on antibiotics. Patient received and echo to rule out endocarditits. Arterial dopplers was negative. coumadin is resumed for history of DVT and paroxysmal afib. Patient to be discharged to TCU to allow physical therapy and rehab to get to baseline strength. Discharge Exam - Head Exam Head Exam: ATRAUMATIC, NORMAL INSPECTION, NORMOCEPHALIC - Eye Exam Eye Exam: EOMI. absent: Scleral icterus - ENT Exam ENT Exam: Mucous Membranes Moist - Respiratory Exam Respiratory Exam: NORMAL BREATHING PATTERN. absent: Accessory Muscle Use, Respiratory Distress - Cardiovascular Exam Cardiovascular Exam: +S1, +S2. absent: Bradycardia, Tachycardia - GI/Abdominal Exam GI & Abdominal Exam: Soft. absent: Distended, Firm, Guarding, Tenderness - Extremities Exam Additional comments: decreased muscle tone in distal LE b/L. pt wearing shoes and ambulates with walker and cane. - Neurological Exam Neurological exam: Alert, Oriented x3 - Skin Skin Exam: Dry, Erythema Discharge Plan - Follow Up Plan Condition: IMPROVED Disposition: REHAB FACILITY/REHAB UNIT Instructions: Influenza Virus Vaccine (By injection), Atrial Fibrillation (DC) , Pneumococcal Vaccine for Adults (GEN), Cellulitis (DC), Heart Healthy Diet (DC ) Referrals: Tayler Lowe DPM [Staff Provider] - Maximino Pritchett MD [Primary Care Provider] - <Indu Knapp - Last Filed: 06/19/17 18:32> Provider - Provider Date of Admission: 06/14/17 23:31 Attending physician: Indu Knapp MD Primary care physician: Maximino Pritchett MD Hospital Course - Lab Results Lab Results: Micro Results 06/16/17 09:45 Blood-Venous Blood Culture - Preliminary NO GROWTH AFTER 3 DAYS 06/16/17 09:20 Blood-Venous Blood Culture - Preliminary NO GROWTH AFTER 3 DAYS 06/16/17 05:30 Naris MRSA Culture (Admit) - Final MRSA NOT DETECTED 06/15/17 01:30 Urine Urine Culture - Final No Growth (<1,000 CFU/ML) Most Recent Lab Values WBC 3.1 10^3/ul (4.5-11.0) L 06/19/17 07:10 RBC 4.27 10^6/uL (3.5-6.1) 06/19/17 07:10 Hgb 12.7 g/dL (12.0-16.0) 06/19/17 07:10 Hct 40.1 % (36.0-48.0) 06/19/17 07:10 MCV 93.9 fl (80.0-105.0) 06/19/17 07:10 MCH 29.7 pg (25.0-35.0) 06/19/17 07:10 MCHC 31.7 g/dl (31.0-37.0) 06/19/17 07:10 RDW 14.4 % (11.5-14.5) 06/19/17 07:10 Plt Count 82 10^3/uL (120.0-450.0) L 06/19/17 07:10 MPV 9.4 fl (7.0-11.0) 06/19/17 07:10 Gran % 57.9 % (50.0-68.0) 06/19/17 07:10 Lymph % (Auto) 28.6 % (22.0-35.0) 06/19/17 07:10 Sumner % (Auto) 9.0 % (1.0-6.0) H 06/19/17 07:10 Eos % (Auto) 3.9 % (1.5-5.0) 06/19/17 07:10 Baso % (Auto) 0.6 % (0.0-3.0) 06/19/17 07:10 Gran # 1.80 (1.4-6.5) 06/19/17 07:10 Lymph # 0.9 (1.2-3.4) L 06/19/17 07:10 Sumner # 0.3 (0.1-0.6) 06/19/17 07:10 Eos # 0.1 (0.0-0.7) 06/19/17 07:10 Baso # 0.02 K/mm3 (0.0-2.0) 06/19/17 07:10 PT 11.1 Seconds (9.9-11.8) 06/19/17 07:10 INR 1.03 (0.93-1.08) 06/19/17 07:10 APTT 25.8 Seconds (23.7-30.8) 06/14/17 16:15 pO2 50 mm/Hg (30-55) 06/14/17 16:15 VBG pH 7.41 (7.32-7.43) 06/14/17 16:15 VBG pCO2 50.0 (40-60) 06/14/17 16:15 VBG HCO3 31.7 mmol/l (21-28) H 06/14/17 16:15 VBG Total CO2 33.2 mmol.L (22-28) H 06/14/17 16:15 VBG O2 Sat (Calc) 89.7 % (40-65) H 06/14/17 16:15 VBG Base Excess 5.8 mmol/L (0.0-2.0) H 06/14/17 16:15 VBG Potassium 4.1 mmol/L (3.6-5.2) 06/14/17 16:15 Sodium 139.0 mmol/L (132-148) 06/14/17 16:15 Chloride 105.0 mmol/L (98-107) 06/14/17 16:15 Glucose 88 mg/dl (65-105) 06/14/17 16:15 Lactate 1.2 mmol/L (0.7-2.1) 06/14/17 16:15 FiO2 21.0 % 06/14/17 16:15 Sodium 142 mmol/L (132-148) 06/19/17 07:10 Potassium 4.6 mmol/L (3.6-5.0) 06/19/17 07:10 Chloride 105 mmol/L (95-110) 06/19/17 07:10 Carbon Dioxide 32 mmol/L (21-33) 06/19/17 07:10 Anion Gap 10 (10-20) 06/19/17 07:10 BUN 10 mg/dL (7-21) 06/19/17 07:10 Creatinine 0.5 mg/dL (0.7-1.2) L 06/19/17 07:10 Est GFR ( Amer) > 60 06/19/17 07:10 Est GFR (Non-Af Amer) > 60 06/19/17 07:10 Random Glucose 87 mg/dL (70-110) 06/19/17 07:10 Calcium 9.3 mg/dL (8.4-10.5) 06/19/17 07:10 Phosphorus 3.7 mg/dL (2.5-4.5) 06/14/17 16:15 Magnesium 2.1 mg/dL (1.7-2.2) 06/14/17 16:15 Total Bilirubin 0.8 mg/dL (0.2-1.3) 06/19/17 07:10 AST 42 U/L (14-36) H D 06/19/17 07:10 ALT 34 U/L (7-56) 06/19/17 07:10 Alkaline Phosphatase 60 U/L (38-126) 06/19/17 07:10 Lactate Dehydrogenase 815 U/L (333-699) H 06/14/17 16:15 Total Creatine Kinase 70 U/L (35-230) 06/14/17 16:15 Troponin I 0.03 ng/mL D 06/15/17 12:20 NT-Pro-B Natriuret Pep 579 pg/mL (0-450) H 06/14/17 16:15 Total Protein 6.0 g/dL (5.8-8.3) 06/19/17 07:10 Albumin 3.5 g/dL (3.0-4.8) 06/19/17 07:10 Globulin 2.5 gm/dL 06/19/17 07:10 Albumin/Globulin Ratio 1.4 (1.1-1.8) 06/19/17 07:10 Procalcitonin 0.06 NG/ML (0.19-0.49) L 06/15/17 11:15 TSH 3rd Generation 3.95 mIU/mL (0.46-4.68) 06/17/17 06:00 Venous Blood Potassium 4.1 mmol/L (3.6-5.2) 06/14/17 16:15 Urine Color Yellow (YELLOW) 06/15/17 01:30 Urine Appearance Clear (CLEAR) 06/15/17 01:30 Urine pH 7.5 (4.7-8.0) 06/15/17 01:30 Ur Specific [place] <= 1.005 (1.005-1.035) 06/15/17 01:30 Urine Protein Negative mg/dL (<30 mg/dL) 06/15/17 01:30 Urine Glucose (UA) Negative mg/dL (NEGATIVE) 06/15/17 01:30 Urine Ketones Negative mg/dL (NEGATIVE) 06/15/17 01:30 Urine Blood Negative (NEGATIVE) 06/15/17 01:30 Urine Nitrate Negative (NEGATIVE) 06/15/17 01:30 Urine Bilirubin Negative (NEGATIVE) 06/15/17 01:30 Urine Urobilinogen 0.2 E.U./dL (<1 E.U./dL) 06/15/17 01:30 Ur Leukocyte Esterase Negative Ford/uL (NEGATIVE) 06/15/17 01:30 Attending/Attestation - Attestation I have personally seen and examined this patient.: Yes I have fully participated in the care of the patient.: Yes I have reviewed all pertinent clinical information, including history, physical exam and plan: Yes Notes (Text): 06/19/17 18:27 81 year old female with past medical history of DVT s/p IVC filter and paroxysmal afib who presented with bilateral lower extremity celluliits. This is improving with iv antibiotics. ID and podiatry are following the patient. Initial blood cultures were positive for coag negative staph. Possibly contaminant. Repeat cultures are negative to date. Echocardiogram was done today to evaluate for vegetations. Report is pending. Arterial dopplers was negative. Venous dopplers report is pending. She is on coumadin for history of DVT and paroxysmal afib. INR is still subtherapeutic and coumadin dose will be increased. Issue of medication compliance was discussed with patient. Continue to monitor platelets closely for thrombocytopenia. D/c planning to TCU if patient is agreeable; currently states she wants to discuss with her son. Indu Knapp MD Hospitalist.
--- NOTE | 2017-06-19 19:11 | CP.PCM.PN ---
<Shahram Hogan - Last Filed: 06/19/17 19:07> Subjective - Date & Time of Evaluation Date of Evaluation: 06/19/17 Time of Evaluation: 18:00 - Subjective Subjective: Medicine Note During time for discharge to TCU patient refused to leave and wanted to go home. During stay while at the hospital there have been signs of Sundowning. Patient refused transfer to TCU and wanted walk home. This is not baseline for this patient to converse in this manner. Son was called however no response. It is safest for the patient to remain in house for one more night, sleep and reasses in the AM. Plan to D/C to TCU tomorrow d/w Medical Attending Shahram Hogan PGY1 Objective - Vital Signs/Intake and Output Vital Signs (last 24 hours): Temp Pulse Resp BP Pulse Ox 97.6 F 76 18 123/70 98 06/19/17 07:30 06/19/17 07:30 06/19/17 07:30 06/19/17 07:30 06/19/17 07:30 Intake and Output: 06/19/17 06/20/17 18:59 06:59 Intake Total 480 Balance 480 - Medications Medications: Current Medications Acetaminophen (Tylenol 325mg Tab) 650 mg PO Q6H PRN PRN Reason: Fever >100.4 F Last Admin: 06/16/17 23:25 Dose: 650 mg Clotrimazole (Lotrimin 1%) 0 gm TOP BID [facility] Last Admin: 06/19/17 17:41 Dose: 1 applic Famotidine (Pepcid) 20 mg PO 1000,2200 [facility] Last Admin: 06/19/17 09:44 Dose: 20 mg Ceftriaxone Sodium (Rocephin 1 Gram Ivpb) 1 gm in 100 mls @ 100 mls/hr IVPB DAILY [facility] PRN Reason: Protocol Last Admin: 06/19/17 12:30 Dose: 100 mls/hr Vancomycin HCl (Vancomycin 1gm) 1 gm in 250 mls @ 167 mls/hr IVPB DAILY [facility] PRN Reason: Protocol Last Admin: 06/19/17 09:44 Dose: 167 mls/hr Mupirocin (Bactroban Ointment) 0 gm TOP BID [facility] Last Admin: 06/19/17 17:41 Dose: 1 applic Warfarin Sodium (Coumadin) 10 mg PO 1800 [facility] PRN Reason: Protocol Last Admin: 06/19/17 17:41 Dose: 10 mg - Labs Labs: 06/19/17 07:10 06/19/17 07:10 PT 11.1 Seconds (9.9-11.8) 06/19/17 07:10 INR 1.03 (0.93-1.08) 06/19/17 07:10 APTT 25.8 Seconds (23.7-30.8) 06/14/17 16:15 <Indu Knapp - Last Filed: 06/20/17 07:11> Objective - Vital Signs/Intake and Output Vital Signs (last 24 hours): Temp Pulse Resp BP Pulse Ox 97.7 F 76 20 108/59 L 96 06/20/17 00:00 06/20/17 00:00 06/20/17 00:00 06/20/17 00:00 06/20/17 00:00 Intake and Output: 06/20/17 06/20/17 06:59 18:59 Intake Total 590 Balance 590 - Medications Medications: Current Medications Acetaminophen (Tylenol 325mg Tab) 650 mg PO Q6H PRN PRN Reason: Fever >100.4 F Last Admin: 06/16/17 23:25 Dose: 650 mg Clotrimazole (Lotrimin 1%) 0 gm TOP BID [facility] Last Admin: 06/19/17 17:41 Dose: 1 applic Famotidine (Pepcid) 20 mg PO 1000,2200 [facility] Last Admin: 06/19/17 23:12 Dose: 20 mg Ceftriaxone Sodium (Rocephin 1 Gram Ivpb) 1 gm in 100 mls @ 100 mls/hr IVPB DAILY [facility] PRN Reason: Protocol Last Admin: 06/19/17 12:30 Dose: 100 mls/hr Vancomycin HCl (Vancomycin 1gm) 1 gm in 250 mls @ 167 mls/hr IVPB DAILY [facility] PRN Reason: Protocol Last Admin: 06/19/17 09:44 Dose: 167 mls/hr Mupirocin (Bactroban Ointment) 0 gm TOP BID [facility] Last Admin: 06/19/17 17:41 Dose: 1 applic Warfarin Sodium (Coumadin) 10 mg PO 1800 [facility] PRN Reason: Protocol Last Admin: 10/10/17 17:41 Dose: 10 mg - Labs Labs: 06/19/17 07:10 06/19/17 07:10 PT 11.1 Seconds (9.9-11.8) 06/19/17 07:10 INR 1.03 (0.93-1.08) 06/19/17 07:10 APTT 25.8 Seconds (23.7-30.8) 06/14/17 16:15
--- NOTE | 2017-06-19 21:11 | CARD ---
APPROVED REPORT EXAM: Two-dimensional and M-mode echocardiogram with Doppler and color Doppler. INDICATION Atrial Fibrillation Infection:Rule out subacute bacterial endocarditis 2D DIMENSIONS Left Atrium (2D)5.2 (1.6-4.0cm)IVSd1.1 (0.7-1.1cm) LVDd3.3 (3.9-5.9cm)PWd1.1 (0.7-1.1cm) LVDs2.2 (2.5-4.0cm)FS (%) 34.3 % LVEF (%)64.6 (>50%) M-Mode DIMENSIONS Aortic Root3.00 (2.2-3.7cm) Aortic Valve AoV Peak Cvaqmjga801.0cm/Ancelmo Peak GR.30mmHgLVOT Peak Pcpqfvfn70.5cm/s LVOT VTI16.90cmAI P 1/2 [id number] Mitral Valve MV E Qgpfijre341.0cm/sMV A Qzixzefl376.0cm/sMV ZHL22mb E/A ratio1.1MVA (PHT)2.34cm2 TDI Lateral E' Peak V5.46cm/sMedial E' Peak V5.17cm/sE/Lateral E'21.4 E/Medial E'22.6 Pulmonary Valve PV Peak Cpnxpfqh41.8cm/sPV Peak Grad.1mmHg Tricuspid Valve TR Peak Ylwebthi518uv/sRAP [id number] Peak Gr.38mmHg [id number] LEFT VENTRICLE The left ventricle is normal size. There is normal left ventricular wall thickness. The left ventricular function is normal.EF-65% There is normal LV segmental wall motion. Transmitral Doppler flow pattern is Grade III-reversible restrictive diastolic dysfunction. No left ventricle thrombus noted on this study. There is no ventricular septal defect visualized. There is no left ventricular aneurysm. There is no mass noted in the left ventricle. RIGHT VENTRICLE The right ventricle is moderately dilated. There is normal right ventricular wall thickness. Systolic function of RV is mildly to moderately reduced. ATRIA The left atrium is moderately dilated. The right atrium is mildly dilated. a small PFo with Left to right shunt by color flow noted AORTIC VALVE There are no vegetations on this prosthetic aortic valve. There is a bioprosthetic aortic valve prosthesis. The prosthetic aortic valve appears well seated.Mild AR with peak gradient 30 mmof hg MITRAL VALVE The mitral valve is calcified but opens well. Mitral annular calcification is severe. Mitral regurgitation is mild to moderate. There is no mitral valve stenosis. There is no evidence of mitral valve prolapse. TRICUSPID VALVE The tricuspid valve leaflets are thickened , but open well. There is moderate tricuspid regurgitation.RVSP-48 mmof hg There is no tricuspid valve stenosis. There is no tricuspid valve prolapse or vegetation. PULMONIC VALVE The pulmonic valve is not well visualized. GREAT VESSELS The aortic root is normal in size. The ascending aorta is normal in size. The pulmonary artery is normal. The IVC is normal in size and collapses >50% with inspiration. PERICARDIAL EFFUSION There is no pleural effusion. There is no pericardial effusion. <Conclusion> There is normal left ventricular wall thickness. The left ventricular function is normal.EF-65% The right ventricle is moderately dilated. Systolic function of RV is mildly to moderately reduced. There are no vegetations on this prosthetic aortic valve. There is a bioprosthetic aortic valve prosthesis. The prosthetic aortic valve appears well seated.Mild AR with peak gradient 30 mmof hg The mitral valve is calcified but opens well. Mitral annular calcification is severe. Mitral regurgitation is mild to moderate. There is moderate tricuspid regurgitation.RVSP-48 mmof hg The IVC is normal in size and collapses >50% with inspiration. There is no pericardial effusion. No obvious vegetation noted, heavy calcified mitral valve apparatus, Suggest MARGY if blood culture remains positive.
--- NOTE | 2017-06-19 22:21 | PN ---
DATE: 06/19/2017 SUBJECTIVE: The patient is in bed, in no acute distress, nontoxic, was seen early this morning. PHYSICAL EXAMINATION: VITAL SIGNS: Temperature is 97.6, blood pressure is 120/70, respiratory rate of 16. HEENT: Examination of HEENT is unremarkable. NECK: Supple. LUNGS: Have decreased breath sounds. HEART: Normal S1, S2. ABDOMEN: Soft. LABORATORY AND DIAGNOSTIC DATA: Laboratory examination reveals a white count of 3, hemoglobin 12, platelets of 82 and chemistries reveals a BUN of 10, creatinine of 0.5 and a procalcitonin 0.06. Urinalysis is reviewed. Microbiology reveals the gram-positive cocci. Coag negative staph in one bottle. Repeat blood cultures are negative after within 2 days and the patient had a chest x-ray on the and a CAT scan of the chest on , which showed a nodular fluid collection density, no acute pulmonary emboli. ASSESSMENT AND PLAN: An 81-year-old female with bilateral lower extremity cirrhosis probably skin and skin soft tissue infection post surgery gram-positive cocci bacteremia and tenia pedis with coag negative in 1/4 bottles probably a contamination, although the patient does have a bioprosthetic aortic valve replacement and a filter, on vanco and Rocephin. Awaiting for echo results. Review of orders reveals vanco and Rocephin to be requiring renewal, which I will do so. Wilberto Adame MD
[2017-06-20 01:39] VITALS: RESP 20
[2017-06-20 07:29] LABS: INR 1.1 (0.93-1.08)
[2017-06-20 08:04] LABS: BASO # 0.03 K/mm3 (0.0-2.0); BASO % 0.7 % (0.0-3.0); EOS # 0.1 (0.0-0.7); EOS % 1.7 % (1.5-5.0); GRAN # 2.35 (1.4-6.5); GRAN % 58.4 % (50.0-68.0); HEMATOCRIT 37.3 % (36.0-48.0); LYMPH # 1.1 (1.2-3.4); LYMPH % 28.3 % (22.0-35.0); MEAN CELL VOLUME 93.5 fl (80.0-105.0); MEAN CORPUSCULAR HEMOGLOBIN 30.1 pg (25.0-35.0); MEAN CORPUSCULAR HGB CONC 32.2 g/dl (31.0-37.0); MEAN PLATELET VOLUME 9.6 fl (7.0-11.0); MONO # 0.4 (0.1-0.6); MONO % 10.9 % (1.0-6.0); RED CELL DISTRIBUTION WIDTH 14.5 % (11.5-14.5)
[2017-06-20 08:09] LABS: ALB/GLOB RATIO 1.5 (1.1-1.8); ALKALINE PHOSPHATASE 63 U/L (38-126); ALT/SGPT 48 U/L (7-56); AST/SGOT 59 U/L (14-36); BILIRUBIN,TOTAL 0.7 mg/dL (0.2-1.3); BLOOD UREA NITROGEN 14 mg/dL (7-21); CALCIUM 9.3 mg/dL (8.4-10.5); CARBON DIOXIDE 30 mmol/L (21-33); CHLORIDE 104 mmol/L (95-110); GFR AFRICAN-AMERICAN > 60; GLUCOSE,RANDOM 88 mg/dL (70-110); POTASSIUM 4.2 mmol/L (3.6-5.0); SODIUM 139 mmol/L (132-148)
[2017-06-20 08:41] VITALS: BP 122/67; PULSE 83; TEMP 98.2; O2SAT 97
[2017-06-20] MEDS: Clotrimazole 1% Cream(30 gm) TOP SCH (08:43)
[2017-06-20] MEDS: cefTRIAXone 1 gm 1 GM/100 ML BAG IVPB SCH (08:43)
[2017-06-20] MEDS: Vancomycin 1gm in NS 250ml 1 GM/250 ML BAG IVPB SCH (09:35)
--- NOTE | 2017-06-20 09:57 | CP.PCM.PN ---
<Ciaran Raymond - Last Filed: 06/20/17 09:53> Subjective - Date & Time of Evaluation Date of Evaluation: 06/20/17 Time of Evaluation: 09:53 - Subjective Subjective: 81 year old female with PMH of paroxysmal atrial fibrillation, chronic anemia, left breast CA S/P left mastectomy for bilaterally leg cellulitis and fungal pedal infection. Patient is seen sitting comfortably in chair, AAOx3, and in NAD. Patient is seen wearing shoes without socks. She reports no pain to LE. Denies n/v/sob/cp/chills or f Objective - Vital Signs/Intake and Output Vital Signs (last 24 hours): Temp Pulse Resp BP Pulse Ox 98.2 F 83 20 122/67 97 06/20/17 08:00 06/20/17 08:00 06/20/17 08:00 06/20/17 08:00 06/20/17 08:00 Intake and Output: 06/20/17 06/20/17 06:59 18:59 Intake Total 590 Balance 590 - Medications Medications: Current Medications Acetaminophen (Tylenol 325mg Tab) 650 mg PO Q6H PRN PRN Reason: Fever >100.4 F Last Admin: 06/16/17 23:25 Dose: 650 mg Clotrimazole (Lotrimin 1%) 0 gm TOP BID [facility] Last Admin: 06/20/17 08:43 Dose: 1 applic Famotidine (Pepcid) 20 mg PO 1000,2200 [facility] Last Admin: 06/20/17 08:43 Dose: 20 mg Ceftriaxone Sodium (Rocephin 1 Gram Ivpb) 1 gm in 100 mls @ 100 mls/hr IVPB DAILY [facility] PRN Reason: Protocol Last Admin: 06/20/17 08:43 Dose: 100 mls/hr Vancomycin HCl (Vancomycin 1gm) 1 gm in 250 mls @ 167 mls/hr IVPB DAILY [facility] PRN Reason: Protocol Last Admin: 06/20/17 09:35 Dose: 167 mls/hr Mupirocin (Bactroban Ointment) 0 gm TOP BID [facility] Last Admin: 06/19/17 17:41 Dose: 1 applic Warfarin Sodium (Coumadin) 10 mg PO 1800 [facility] PRN Reason: Protocol Last Admin: 06/19/17 17:41 Dose: 10 mg - Labs Labs: 06/20/17 07:50 06/20/17 07:51 PT 11.9 Seconds (9.9-11.8) H 06/20/17 07:09 INR 1.10 (0.93-1.08) H 06/20/17 07:09 APTT 25.8 Seconds (23.7-30.8) 06/14/17 16:15 - Constitutional Appears: Well, Non-toxic, No Acute Distress - Extremities Exam Additional comments: Vasc: DP and PT palpable, CFT diminished x10 digits, no edema noted Ortho: MM is 4/5 in dorsiflexion, plantarflexion, inversion, and eversion, no pain with palpation the LE bilaterally Neuro: gross sensation slightly diminished bilaterally Derm: discoloration noted to the LE, no streaking, no erythema noted, superficial lesions noted to the distal left hallux, measuring approximately .2x.3x.1 noted to the hallux with granular base, no drainage, no purulence, no clincial signs of infection, hyperkeratotic skin to the LE bilaterally, no increase warmth bilaterally - Neurological Exam Neurological Exam: Alert, Awake, Oriented x3 - Psychiatric Exam Psychiatric exam: Normal Affect, Normal Mood Assessment and Plan - Assessment and Plan (Free Text) Assessment: 81 year old female with PMH of paroxysmal atrial fibrillation, chronic anemia, left breast CA S/P left mastectomy present with resolving cellulitis and tinea pedis Plan: Patient examined and evaluated Charts, labs, vitals reviewed Discussed plan in detail with attending Dr. Partida (afebrile, absent leukocytosis WBC=4.0) Right hallux cleansed with saline, mupricion applied to distal left hallux and dressed with bandage. Patient encouraged to wear socks at all times with shoes. Socks placed on patient. Ordered surgical shoe for patient to be worn Continue with Clotrimazole cream for tinea pedis Patient does not need LE dressing for cellulits/tinea pedis Patient is stable per podiatry standpoint. Will continue to follow in house. <Gilson Partida - Last Filed: 06/21/17 07:28> Objective - Vital Signs/Intake and Output Vital Signs (last 24 hours): Temp Pulse Resp BP Pulse Ox 98.2 F 83 20 122/67 97 06/20/17 08:00 06/20/17 08:00 06/20/17 08:00 06/20/17 08:00 06/20/17 08:00 - Labs Labs: 06/20/17 07:50 06/20/17 07:51 PT 11.9 Seconds (9.9-11.8) H 06/20/17 07:09 INR 1.10 (0.93-1.08) H 06/20/17 07:09 APTT 25.8 Seconds (23.7-30.8) 06/14/17 16:15 Attending/Attestation - Attestation I have personally seen and examined this patient.: Yes I have fully participated in the care of the patient.: Yes I have reviewed all pertinent clinical information, including history, physical exam and plan: Yes
--- NOTE | 2017-06-20 14:27 | PN ---
DATE: 06/20/2017 SUBJECTIVE: The patient is in bed, was seen earlier today in 577, bed 2 early this morning. No fevers and no chills. No nausea or vomiting. PHYSICAL EXAMINATION: VITAL SIGNS: On exam, temperature is 98, blood pressure is 120/60, and respiratory rate of 16. HEENT: Examination of HEENT is unremarkable. NECK: Supple. LUNGS: Have decreased breath sounds. HEART: Normal S1 and S2. GASTROINTESTINAL: Abdomen is soft. LABORATORY DATA: Examination reveals a white count of 4, hemoglobin of 12, and platelets of 92. Chemistries are noted. Microbiology is reviewed. ASSESSMENT AND PLAN: This is an 81-year-old female who was seen early this morning in 577, bed 2, with lower extremity skin and soft tissue infection with a coagulase-negative Staphylococcus in the blood in one bottle, although the patient does have prior bioprosthetic valve. Repeat blood cultures negative. She is on vancomycin and Rocephin. Awaiting for final culture results. We will follow with you. Wilberto Adame MD
== END 2017-06-20 10:13 | DRG 603 ==
LOC: ED 15:39 → OBSVTOIN 23:31 → ERH 23:31 → 2RNO 06-15 02:00 → 5RSO 06-17 14:59
PROVIDERS: ADMIT Internal Medicine; ATTEND Internal Medicine
PROC: 0HBRXZZ Excision of Toe Nail, External Approach (ICD-10-PCS; principal; 2017-06-18)
PROC: 0HBRXZZ Excision of Toe Nail, External Approach (ICD-10-PCS; 2017-06-18)
PROC: 0HBRXZZ Excision of Toe Nail, External Approach (ICD-10-PCS; 2017-06-18)
PROC: 0HBRXZZ Excision of Toe Nail, External Approach (ICD-10-PCS; 2017-06-18)
PROC: 0HBRXZZ Excision of Toe Nail, External Approach (ICD-10-PCS; 2017-06-18)
PROC: 0HBRXZZ Excision of Toe Nail, External Approach (ICD-10-PCS; 2017-06-18)
PROC: 0HBRXZZ Excision of Toe Nail, External Approach (ICD-10-PCS; 2017-06-18)
PROC: 0HBRXZZ Excision of Toe Nail, External Approach (ICD-10-PCS; 2017-06-18)
PROC: 0HBRXZZ Excision of Toe Nail, External Approach (ICD-10-PCS; 2017-06-18)
PROC: 0HBRXZZ Excision of Toe Nail, External Approach (ICD-10-PCS; 2017-06-18)
DX: L03.115 Cellulitis of right lower limb (principal); L03.116 Cellulitis of left lower limb; D69.6 Thrombocytopenia, unspecified; I48.92 Unspecified atrial flutter; I48.0 Paroxysmal atrial fibrillation; F03.90 Unspecified dementia, unspecified severity, without behavioral disturbance, psychotic disturbance, mood disturbance, and anxiety; B35.3 Tinea pedis; I73.9 Peripheral vascular disease, unspecified; D64.9 Anemia, unspecified; I10 Essential (primary) hypertension; Z79.01 Long term (current) use of anticoagulants; Z85.3 Personal history of malignant neoplasm of breast; Z86.718 Personal history of other venous thrombosis and embolism; Z90.12 Acquired absence of left breast and nipple; Z95.3 Presence of xenogenic heart valve

== ENCOUNTER 2017-06-20 10:21 | Inpatient (IN) | payer OTHER, BC ==
[2017-06-20 11:08] VITALS: BMI 15.7
--- NOTE | 2017-06-20 14:34 | CP.PCM.HP ---
<Zaid No - Last Filed: 06/20/17 17:30> History of Present Illness - History of Present Illness History of Present Illness: Patient is an 81 year old female with a past medical history of DVT s/p IVC filter,bioprosthetic aortic valve replacement, paroxysmal atrial fibrillation, chronic anemia, thrombocytopenia, left breast ca s/p L mastectomy, presenting to [facility] on 06/14/17 who was seen in office and sent by her PMD Dr. Pritchett for evaluation of feet and tachycardia. Patient states she has not taken any of her medications for several months. Patient was recently treated for bilateral cellulitis and fungal infection and discharged for TCU for further PT sessions and antibiotics.. Patient was seen Patient denies shortness of breath, chest pain, abdominal pain, dysuria, dizziness, headache. PMD: Dr. Pritchett Surgical history: Left mastectomy, bioproesthetic aortic valve replacement, IVC filter s/p DVT Allergies: NKDA Social history: denies tobacco use, alcohol consumption, illicit drug use Present on Admission - Present on Admission Any Indicators Present on Admission: Yes History of DVT/PE: Yes Review of Systems - Constitutional Constitutional: As Per HPI - EENT Eyes: As Per HPI Ears: As Per HPI Nose/Mouth/Throat: As Per HPI - Breasts Breasts: As Per HPI - Cardiovascular Cardiovascular: As Per HPI - Respiratory Respiratory: As Per HPI - Gastrointestinal Gastrointestinal: As Per HPI - Genitourinary Genitourinary: As Per HPI - Reproductive: Female Reproductive:Female: As Per HPI - Musculoskeletal Musculoskeletal: As Per HPI - Integumentary Integumentary: As Per HPI - Neurological Neurological: As Per HPI - Psychiatric Psychiatric: As Per HPI - Endocrine Endocrine: As Per HPI - Hematologic/Lymphatic Hematologic: As Per HPI Past Patient History - Infectious Disease Hx of Infectious Diseases: None - Tetanus Immunizations Tetanus Immunization: Unknown - Past Social History Smoking Status: Never Smoked - CARDIAC Hx Hypertension: Yes - PULMONARY Hx Respiratory Disorders: No - NEUROLOGICAL Hx Neurological Disorder: No - HEENT Hx HEENT Problems: No - RENAL Hx Chronic Kidney Disease: No - ENDOCRINE/METABOLIC Hx Endocrine Disorders: No - HEMATOLOGICAL/ONCOLOGICAL Hx Blood Disorders: Yes (thrombocytopenia) Hx Anemia: Yes (blood transfusion) Hx Cancer: Yes (left breast ca with lymph nodes) Hx Chemotherapy: (pt denies chemo and radiation) - INTEGUMENTARY Hx Dermatological Problems: Yes Other/Comment: cellulitis. ble +1 edema - MUSCULOSKELETAL/RHEUMATOLOGICAL Hx Arthritis: Yes - GASTROINTESTINAL Hx Gastrointestinal Disorders: Yes (HX GI BLEED, weight loss) - GENITOURINARY/GYNECOLOGICAL Hx Genitourinary Disorders: Yes Hx Urinary Tract Infection: Yes - PSYCHIATRIC Hx Psychophysiologic Disorder: No Hx Substance Use: No - SURGICAL HISTORY Hx Mastectomy: Yes (LEFT) Hx Open Heart Surgery: Yes Hx Valve Replacement: Yes Other/Comment: IVC FILTER - ANESTHESIA Hx Anesthesia: Yes Hx Anesthesia Reactions: No Hx Malignant Hyperthermia: No Meds Allergies/Adverse Reactions: Allergies Allergy/AdvReac Type Severity Reaction Status Date / Time No Known Allergies Allergy Verified 06/21/17 08:30 Physical Exam - Head Exam Head Exam: ATRAUMATIC, NORMAL INSPECTION, NORMOCEPHALIC - Eye Exam Eye Exam: EOMI, Normal appearance, PERRL. absent: Periorbital tenderness Pupil Exam: NORMAL ACCOMODATION, PERRL. absent: Irregular, Unequal - ENT Exam ENT Exam: Mucous Membranes Moist, Normal Exam. absent: Normal Oropharynx, TM's Normal Bilaterally - Neck Exam Neck exam: Positive for: Normal Inspection. Negative for: Lymphadenopathy, Meningismus - Respiratory Exam Respiratory Exam: Clear to Auscultation Bilateral, NORMAL BREATHING PATTERN. absent: Respiratory Distress - Cardiovascular Exam Cardiovascular Exam: REGULAR RHYTHM, +S1, +S2 - GI/Abdominal Exam GI & Abdominal Exam: Normal Bowel Sounds, Soft - Extremities Exam Additional comments: bilateral erythema and scaling - Back Exam Back exam: NORMAL INSPECTION. absent: CVA tenderness (L), CVA tenderness (R), paraspinal tenderness - Neurological Exam Neurological exam: Alert, CN II-XII Intact, Oriented x3, Reflexes Normal - Psychiatric Exam Psychiatric exam: Normal Affect, Normal Mood - Skin Skin Exam: Dry, Intact, Normal Color Assessment & Plan - Assessment and Plan (Free Text) Assessment: 81 year old female presenting with left leg pain Plan: 1. B/L Lower Extremity Cellulitus and fungal pedal infection - Vancomycin - Rocephin -Clotrimazole Cream. - ID consulted. Rec's appreciated. -Podiatry rec's appreciated. Surgical shoe's ordered. -ECHO negative for vegetations -Discharged to TCU. Dr. Pritchett made aware of clinical situation via phone. 2. Chronic DVT of left leg -Continue Coumadin 10mg Daily -Will monitor with serial coag's. -Chest ct showed a 1.7x 1.2 cm hypodense nodular fluid collection and recommended a u/s followup. U/S was negative . 3. Atrial Flutter - Resolved after IVF were administered. Patient shows no atrial flutter on monitor. -Will continue to monitor closely. -Spoke with Dr. Pritchett who says the patient isn't on any anti-coagulation and has a history of non-compliance. Will discuss options with patients. -Continue Coumadin 10mg Daily. INR 1.10. -Echo ordered. Will f/u with rec's tomorrow. 4. Thrombocytopenia - Patient has baseline thrombocytopenia, continue to trend. Consult if needed. -No intervention at this time. 5. Peripheral Arterial Disease - Arterial doppler negative. US l/e bilaterally pending. - Tylenol for pain control GI prophylaxis -Protonix <Indu Knapp - Last Filed: 06/21/17 12:19> Results - Vital Signs Recent Vital Signs: Last Vital Signs Temp 97.9 F 06/21/17 05:21 Pulse 135 H 06/21/17 10:29 Resp 18 06/21/17 05:21 BP 107/60 06/21/17 10:29 Pulse Ox 97 06/21/17 05:21 - Labs Result Diagrams: 06/21/17 08:50 06/21/17 08:50 Labs: Laboratory Results - last 24 hr 06/21/17 06/21/17 06/21/17 08:50 08:50 08:50 WBC 3.9 L RBC 3.76 Hgb 11.4 L Hct 35.4 L MCV 94.1 MCH 30.3 MCHC 32.2 RDW 14.7 H Plt Count 81 L MPV 9.6 PT 18.0 H INR 1.67 H Sodium 140 Potassium 5.1 H Chloride 104 Carbon Dioxide 30 Anion Gap 11 BUN 23 H Creatinine 0.8 Est GFR ( Amer) > 60 Est GFR (Non-Af Amer) > 60 Random Glucose 128 H Calcium 9.1 Attending/Attestation - Attestation I have personally seen and examined this patient.: Yes I have fully participated in the care of the patient.: Yes I have reviewed all pertinent clinical information: Yes Notes (Text): 06/20/17 81 year old female with past medical history of DVT s/p IVC filter and paroxysmal afib who presented with bilateral lower extremity celluliits. She was transferred to ICU for iv antibiotics and physical therapy rehabilitation. Continue with iv antibiotics as per ID. Podiatry is following patient as well. Initial blood culture showed coag neg staph (likely contaminate) and also strep viridians. However repeat blood cultures are negative to date. TTE was negative for vegetations as well. Will discuss with ID. Arterial dopplers was negative. Venous dopplers report is pending. She is on coumadin for history of DVT and paroxysmal afib. Issue of medication compliance was discussed with patient. Continue to monitor platelets closely for thrombocytopenia. Indu Knapp MD Hospitalist.
[2017-06-20] MEDS: Clotrimazole 1% Cream(30 gm) TOP SCH (17:26)
[2017-06-20] MEDS ORDERED: Pneumococcal 23-Valent Vaccine IM ONE (20:07)
[2017-06-21] MEDS: Vancomycin 1gm in NS 250ml 1 GM/250 ML BAG IVPB SCH (05:45)
[2017-06-21] MEDS ORDERED: cefTRIAXone 1 gm 1 GM/100 ML BAG IVPB SCH (06:00)
[2017-06-21 09:05] LABS: HEMATOCRIT 35.4 % (36.0-48.0); MEAN CELL VOLUME 94.1 fl (80.0-105.0); MEAN CORPUSCULAR HEMOGLOBIN 30.3 pg (25.0-35.0); MEAN CORPUSCULAR HGB CONC 32.2 g/dl (31.0-37.0); MEAN PLATELET VOLUME 9.6 fl (7.0-11.0); RED CELL DISTRIBUTION WIDTH 14.7 % (11.5-14.5); WHITE BLOOD COUNT 3.9 10^3/ul (4.5-11.0)
[2017-06-21 09:14] LABS: BLOOD UREA NITROGEN 23 mg/dL (7-21); CALCIUM 9.1 mg/dL (8.4-10.5); CARBON DIOXIDE 30 mmol/L (21-33); CHLORIDE 104 mmol/L (98-107); GFR AFRICAN-AMERICAN > 60; GLUCOSE,RANDOM 128 mg/dL (70-110); SODIUM 140 mmol/L (132-148)
[2017-06-21 09:16] LABS: INR 1.67 (0.93-1.08)
[2017-06-21 09:19] LABS: POTASSIUM 5.1 mmol/L (3.6-5.0)
[2017-06-21] MEDS: Clotrimazole 1% Cream(30 gm) TOP SCH ×2 (09:28→17:17)
[2017-06-22] MEDS: Vancomycin 1gm in NS 250ml 1 GM/250 ML BAG IVPB SCH (04:59)
--- NOTE | 2017-06-22 06:20 | CON ---
DATE: 06/21/2017 LOCATION: The patient is seen in room 319. CHIEF COMPLAINT: Weakness times several days. HISTORY OF PRESENT ILLNESS: This is an 81-year-old female who is admitted to the transitional care. The patient was in the acute care with a diagnosis of rapid AFib in a patient who has got a bioprosthetic aortic valve replacement, DVT, history of IVC filter, atrial fibrillation, chronic anemia, history of left breast cancer, and history of left mastectomy, who was admitted with bilateral lower extremity skin and soft tissue infection secondary to tenia. The patient's blood cultures from the day of admission, one blood grew coag-negative staph and the same blood cultures with strep viridans, one bottle, and two days later, on 06/16/2017, repeat blood cultures are negative and an Infectious Disease consultation requested. REVIEW OF SYSTEMS: Reveals that the patient did not have any fevers, any chills. No nausea and no vomiting or chest pain. PAST MEDICAL HISTORY: Significant for the DVT, atrial fibrillation, chronic anemia, left breast cancer, bioprosthetic aortic valve replacement, hypertension, arthritis. PAST SURGICAL HISTORY: Significant for left mastectomy and IVC filter placement. ALLERGIES: THE PATIENT HAS NO KNOWN ALLERGIES. MEDICATIONS: Medications at home are reviewed and medications in the hospital are reviewed. PHYSICAL EXAMINATION: GENERAL: The patient is in bed. VITAL SIGNS: Temperature of 98, blood pressure is 112/60, respiratory rate of 18, heart rate of 80. HEENT: Unremarkable. NECK: Supple. LUNGS: Decreased breath sounds. HEART: Normal S1, S2. ABDOMEN: Soft and nontender. No rebound or guarding. LABORATORY EXAMINATION: Reveals the patient's white count of 3.9, hemoglobin of 11, and platelets of 81,000. Chemistries reveals the BUN of 23, creatinine of 0.8, and repeat cultures as stated are no growth. ASSESSMENT AND PLAN: This is an 81-year-old female seen earlier this morning in room 319 with a lower extremity skin and skin soft tissue infection with a coagulase-negative staphylococci in one bottle and Streptococcus on other bottle, most consistent with a contamination. However, the patient does have a bioprosthetic valve, repeat cultures negative, and the patient had an echo, read by Dr. Veliz. No evidence of vegetations or endocarditis. Currently, on vancomycin and ceftriaxone. The legs have resolved. We will continue present course and short course of antibiotics. The patient's blood cultures were negative from 06/16/2017, which makes today the day #6 of antibiotics, culture negative. We will discontinue ceftriaxone since the vancomycin will treat both organisms in the leg and follow closely with you. Wilberto Adame MD
[2017-06-22 07:15] LABS: HEMATOCRIT 32.5 % (36.0-48.0); MEAN CELL VOLUME 94.5 fl (80.0-105.0); MEAN CORPUSCULAR HEMOGLOBIN 29.9 pg (25.0-35.0); MEAN CORPUSCULAR HGB CONC 31.7 g/dl (31.0-37.0); RED CELL DISTRIBUTION WIDTH 14.9 % (11.5-14.5); WHITE BLOOD COUNT 3.9 10^3/ul (4.5-11.0)
[2017-06-22 07:25] LABS: INR 2.24 (0.93-1.08)
[2017-06-22 07:33] LABS: BLOOD UREA NITROGEN 27 mg/dL (7-21); CALCIUM 8.8 mg/dL (8.4-10.5); CARBON DIOXIDE 31 mmol/L (21-33); CHLORIDE 106 mmol/L (95-110); GFR AFRICAN-AMERICAN > 60; GLUCOSE,RANDOM 86 mg/dL (70-110); POTASSIUM 4.7 mmol/L (3.6-5.0); SODIUM 141 mmol/L (132-148)
[2017-06-22] MEDS: Clotrimazole 1% Cream(30 gm) TOP SCH ×2 (09:59→17:13)
--- NOTE | 2017-06-22 11:23 | PN ---
DATE: 06/22/2017 SUBJECTIVE: The patient seen in room #319 this morning. The patient is comfortable. No fevers and no chills. Uneventful night. OBJECTIVE: VITAL SIGNS: On exam, temperature is 98, blood pressure is 107/60 and respiratory rate of 16. EXAMINATION OF HEENT: Unremarkable. NECK: Supple. LUNGS: Decreased breath sounds. HEART EXAM: Normal S1 and S2. ABDOMEN EXAMINATION: Soft and nontender. LABORATORY EXAMINATION: Reveals the patient's white count of 3.9, hemoglobin of 10 and platelets of 74. BUN of 27 and creatinine of 0.8. Microbiology reveals the repeat cultures are negative. ASSESSMENT AND PLAN: An 81-year-old female who appears much, much older than stated age, who is chronically ill and cachectic with a body mass index of 15, who was seen early this morning in transitional care and the patient has a history of a bioprosthetic aortic valve replacement, deep venous thrombosis, history of inferior vena cava filter, atrial fibrillation, chronic anemia, history of left breast cancer and left mastectomy, admitted with bilateral lower extremity skin and soft tissue infection secondary to tenia. One blood culture was positive for coag-negative staph, another blood cultures was positive for strep viridans. Repeat blood cultures have been negative and may complete 7 to 10 days of vancomycin, today is day #7. If the patient is to be discharged today, no further antibiotics. We will follow with you. The patient had a vancomycin trough of 12.7 on the . Wilberto Adame MD
--- NOTE | 2017-06-22 12:09 | CP.PCM.CON ---
<Ciaran Raymond - Last Filed: 06/22/17 12:05> History of Present Illness - History of Present Illness History of Present Illness: 81 year old female with PMH of paroxysmal atrial fibrillation, chronic anemia, left breast CA S/P left mastectomy seen in TCU for bilaterally LE cellulitis/ fungal infection. Patient is seen sitting comfortably in chair, AAOx3, and in NAD. Denies n/v/sob/cp/chills or f. Patient has no pedal complaints at this time. PSH: bioprosthetic aortic valve replacement, DVT S/P IVC filter placement FH: unknown SH: denies smoking, drinking, or elicited drug use ALL: none MEDS: see medication list Past Patient History - Infectious Disease Hx of Infectious Diseases: None - Tetanus Immunizations Tetanus Immunization: Unknown - Past Social History Smoking Status: Never Smoked - CARDIAC Hx Hypertension: Yes - PULMONARY Hx Respiratory Disorders: No - NEUROLOGICAL Hx Neurological Disorder: No - HEENT Hx HEENT Problems: No - RENAL Hx Chronic Kidney Disease: No - ENDOCRINE/METABOLIC Hx Endocrine Disorders: No - HEMATOLOGICAL/ONCOLOGICAL Hx Blood Disorders: Yes (thrombocytopenia) Hx Anemia: Yes (blood transfusion) Hx Cancer: Yes (left breast ca with lymph nodes) Hx Chemotherapy: (pt denies chemo and radiation) - INTEGUMENTARY Hx Dermatological Problems: Yes Other/Comment: cellulitis. ble +1 edema - MUSCULOSKELETAL/RHEUMATOLOGICAL Hx Falls: No - GASTROINTESTINAL Hx Gastrointestinal Disorders: Yes (HX GI BLEED, weight loss) - GENITOURINARY/GYNECOLOGICAL Hx Genitourinary Disorders: Yes Hx Urinary Tract Infection: Yes - PSYCHIATRIC Hx Psychophysiologic Disorder: No - SURGICAL HISTORY Hx Mastectomy: Yes (LEFT) Hx Open Heart Surgery: Yes Hx Valve Replacement: Yes Other/Comment: IVC FILTER - ANESTHESIA Hx Anesthesia: Yes Hx Anesthesia Reactions: No Hx Malignant Hyperthermia: No Meds Allergies/Adverse Reactions: Allergies Allergy/AdvReac Type Severity Reaction Status Date / Time No Known Allergies Allergy Verified 06/21/17 08:30 - Medications Medications: Current Medications Acetaminophen (Tylenol 325mg Tab) 650 mg PO Q6H PRN; Protocol PRN Reason: Fever >100.4 F Clotrimazole (Lotrimin 1%) 0 gm TOP BID [facility] PRN Reason: Protocol Last Admin: 06/22/17 09:59 Dose: 1 applic Famotidine (Pepcid) 20 mg PO 0600,1800 [facility] PRN Reason: Protocol Last Admin: 06/22/17 04:59 Dose: 20 mg Vancomycin HCl (Vancomycin 1gm) 1 gm in 250 mls @ 167 mls/hr IVPB 0600 [facility] PRN Reason: Protocol Stop: 06/28/17 07:30 Last Admin: 06/22/17 04:59 Dose: 167 mls/hr Mupirocin (Bactroban Ointment) 1 gm TOP BID [facility] PRN Reason: Protocol Last Admin: 06/22/17 09:58 Dose: 1 applic Physical Exam - Constitutional Appears: Well, Non-toxic, No Acute Distress - Extremities Exam Additional comments: Vasc: DP and PT palpable, CFT diminished x10 digits, no edema noted Ortho: MM is 4/5 in dorsiflexion, plantarflexion, inversion, and eversion, no pain with palpation the LE bilaterally Neuro: gross sensation slightly diminished bilaterally Derm: discoloration noted to the LE, no streaking, no erythema noted, superficial lesion noted to the distal left hallux, measuring approximately .1x.3x.1 noted to the hallux with granular base, no drainage, no purulence, no clincial signs of infection, hyperkeratotic skin to the LE bilaterally, no increase warmth bilaterally - Neurological Exam Neurological exam: Alert, Oriented x3 - Psychiatric Exam Psychiatric exam: Normal Affect, Normal Mood Results - Vital Signs Recent Vital Signs: Last Vital Signs Temp 98.0 F 06/21/17 14:00 Pulse 97 H 06/21/17 14:00 Resp 18 06/21/17 14:00 BP 107/64 06/21/17 14:00 Pulse Ox 97 06/21/17 14:00 - Labs Result Diagrams: 06/22/17 07:11 06/22/17 07:11 Labs: Laboratory Results - last 24 hr 06/22/17 06/22/17 06/22/17 07:11 07:11 07:11 WBC 3.9 L RBC 3.44 L Hgb 10.3 L Hct 32.5 L MCV 94.5 MCH 29.9 MCHC 31.7 RDW 14.9 H Plt Count 74 L MPV 9.0 PT 24.2 H INR 2.24 H Sodium 141 Potassium 4.7 Chloride 106 Carbon Dioxide 31 Anion Gap 9 L BUN 27 H Creatinine 0.8 Est GFR ( Amer) > 60 Est GFR (Non-Af Amer) > 60 Random Glucose 86 Calcium 8.8 Assessment & Plan - Assessment and Plan (Free Text) Assessment: 81 year old female with PMH of paroxysmal atrial fibrillation, chronic anemia, left breast CA S/P left mastectomy present with resolving cellulitis and tinea pedis and nicked lesion left distal hallux secondary to debriding toenails. Plan: Patient examined and evaluated Charts, labs, vitals reviewed Discussed plan in detail with attending Dr. Partida (afebrile, absent leukocytosis WBC=3.9) LEFT hallux cleansed with saline, mupricion applied to distal left hallux and dressed with bandage. Patient encouraged to wear socks at all times with shoes. Ordered surgical shoe for patient to be worn in place of old shoes Continue with Clotrimazole cream for tinea pedis Patient does not need LE dressing for cellulits/tinea pedis Patient is stable per podiatry standpoint. Will continue to follow in house. <Gilson Partida - Last Filed: 06/23/17 08:28> Meds - Medications Medications: Current Medications Acetaminophen (Tylenol 325mg Tab) 650 mg PO Q6H PRN; Protocol PRN Reason: Fever >100.4 F Last Admin: 06/23/17 01:15 Dose: 650 mg Clotrimazole (Lotrimin 1%) 0 gm TOP BID [facility] PRN Reason: Protocol Last Admin: 06/22/17 17:13 Dose: 1 applic Famotidine (Pepcid) 20 mg PO 0600,1800 [facility] PRN Reason: Protocol Last Admin: 06/23/17 05:47 Dose: 20 mg Vancomycin HCl (Vancomycin 1gm) 1 gm in 250 mls @ 167 mls/hr IVPB 0600 [facility] PRN Reason: Protocol Stop: 06/28/17 07:30 Last Admin: 06/23/17 05:48 Dose: 167 mls/hr Mupirocin (Bactroban Ointment) 1 gm TOP BID [facility] PRN Reason: Protocol Last Admin: 06/22/17 17:12 Dose: 1 applic Warfarin Sodium (Coumadin) 5 mg PO 1800 [facility] PRN Reason: Protocol Last Admin: 06/22/17 17:12 Dose: 5 mg Results - Vital Signs Recent Vital Signs: Last Vital Signs Temp 98.7 F 06/22/17 17:15 Pulse 70 06/22/17 17:15 Resp 16 06/22/17 17:15 BP 132/70 06/22/17 17:15 Pulse Ox 97 06/22/17 17:15 - Labs Result Diagrams: 06/22/17 07:11 06/22/17 07:11 Attending/Attestation - Attestation I have personally seen and examined this patient.: Yes I have fully participated in the care of the patient.: Yes I have reviewed all pertinent clinical information: Yes
--- NOTE | 2017-06-22 15:59 | CP.PCM.PN ---
Addendum entered and electronically signed by Shahram Hogan DO 06/22/17 16:06 : PPX Pepcid Original Note: <Shahram Hogan - Last Filed: 06/22/17 16:00> Subjective - Date & Time of Evaluation Date of Evaluation: 06/22/17 Time of Evaluation: 10:00 - Subjective Subjective: Medicine Progress Note Pt S&E at bedside this AM. Had a run of asymptomatic tachycardia yesterday. Pt states she has been out of bed and walking with minimal pain. She has new boots in place. Leg erythema significantly decreased. Tolerating diet. denies F/C CP/ SOB N/V/D YOUNG Objective - Vital Signs/Intake and Output Vital Signs (last 24 hours): Temp Pulse Resp BP Pulse Ox 98.1 F 78 12 96/58 L 96 06/22/17 10:00 06/22/17 10:00 06/22/17 10:00 06/22/17 10:00 06/22/17 10:00 Intake and Output: 06/22/17 06/22/17 06:59 18:59 Intake Total 240 Balance 240 - Medications Medications: Current Medications Acetaminophen (Tylenol 325mg Tab) 650 mg PO Q6H PRN; Protocol PRN Reason: Fever >100.4 F Clotrimazole (Lotrimin 1%) 0 gm TOP BID KHADRA PRN Reason: Protocol Last Admin: 06/22/17 09:59 Dose: 1 applic Famotidine (Pepcid) 20 mg PO 0600,1800 KHADRA PRN Reason: Protocol Last Admin: 06/22/17 04:59 Dose: 20 mg Vancomycin HCl (Vancomycin 1gm) 1 gm in 250 mls @ 167 mls/hr IVPB 0600 KHADRA PRN Reason: Protocol Stop: 06/28/17 07:30 Last Admin: 06/22/17 04:59 Dose: 167 mls/hr Mupirocin (Bactroban Ointment) 1 gm TOP BID KHADRA PRN Reason: Protocol Last Admin: 06/22/17 09:58 Dose: 1 applic Warfarin Sodium (Coumadin) 5 mg PO 1800 KHADRA PRN Reason: Protocol - Labs Labs: 06/22/17 07:11 06/22/17 07:11 PT 24.2 Seconds (9.9-11.8) H 06/22/17 07:11 INR 2.24 (0.93-1.08) H 06/22/17 07:11 - Constitutional Appears: Non-toxic, No Acute Distress - Head Exam Head Exam: ATRAUMATIC - Eye Exam Eye Exam: EOMI. absent: Scleral icterus - ENT Exam ENT Exam: Mucous Membranes Moist - Respiratory Exam Respiratory Exam: NORMAL BREATHING PATTERN. absent: Accessory Muscle Use, Wheezes, Respiratory Distress - Cardiovascular Exam Cardiovascular Exam: Tachycardia. absent: Diastolic murmur, Gallop, Rubs, Murmur - GI/Abdominal Exam GI & Abdominal Exam: Soft, Normal Bowel Sounds. absent: Tenderness - Extremities Exam Additional comments: b/l surgical shoe in place - Neurological Exam Neurological Exam: Alert, Awake - Psychiatric Exam Psychiatric exam: Normal Affect - Skin Skin Exam: Normal Color, Warm Assessment and Plan - Assessment and Plan (Free Text) Assessment: 81 year old female presenting with left leg pain & Cellulitis B/L Lower Extremity Cellulitus and fungal pedal infection Vancomycin Clotrimazole Cream. C/s Infectious Disease C/s Podiatry rec's appreciated. Surgical shoe's in place ECHO negative for vegetations Discharged to TCU. Dr. Pritchett made aware of clinical situation via phone. Chronic DVT of left leg Coumadin changed from 10mg to 5mg monitor with serial coag's. hest ct showed a 1.7x 1.2 cm hypodense nodular fluid collection and recommended a u/s followup. U/S was negative . Atrial Flutter Resolved after IVF were administered. Patient shows no atrial flutter on monitor. Will continue to monitor closely. Spoke with Dr. Pritchett who says the patient isn't on any anti-coagulation and has a history of non-compliance. Will discuss options with patients. Change Coumadin to 5mg. Most recent INR >2. consulted Cardiology for episode of Tachycardia. Pt remains asymptomatic Thrombocytopenia Patient has baseline thrombocytopenia, continue to trend. Consult if needed. No intervention at this time. Peripheral Arterial Disease Arterial doppler negative. US l/e bilaterally pending. Tylenol for pain control PPX PTX Shahram Hogan PGY1 <Indu Knapp - Last Filed: 06/22/17 18:19> Objective - Vital Signs/Intake and Output Vital Signs (last 24 hours): Temp Pulse Resp BP Pulse Ox 98.7 F 70 16 132/70 97 06/22/17 17:15 06/22/17 17:15 06/22/17 17:15 06/22/17 17:15 06/22/17 17:15 Intake and Output: 06/22/17 06/22/17 06:59 18:59 Intake Total 240 Balance 240 - Medications Medications: Current Medications Acetaminophen (Tylenol 325mg Tab) 650 mg PO Q6H PRN; Protocol PRN Reason: Fever >100.4 F Clotrimazole (Lotrimin 1%) 0 gm TOP BID KHADRA PRN Reason: Protocol Last Admin: 06/22/17 17:13 Dose: 1 applic Famotidine (Pepcid) 20 mg PO 0600,1800 KHADRA PRN Reason: Protocol Last Admin: 06/22/17 17:13 Dose: 20 mg Vancomycin HCl (Vancomycin 1gm) 1 gm in 250 mls @ 167 mls/hr IVPB 0600 KHADRA PRN Reason: Protocol Stop: 06/28/17 07:30 Last Admin: 06/22/17 04:59 Dose: 167 mls/hr Mupirocin (Bactroban Ointment) 1 gm TOP BID KHADRA PRN Reason: Protocol Last Admin: 06/22/17 17:12 Dose: 1 applic Warfarin Sodium (Coumadin) 5 mg PO 1800 KHADRA PRN Reason: Protocol Last Admin: 06/22/17 17:12 Dose: 5 mg - Labs Labs: 06/22/17 07:11 06/22/17 07:11 PT 24.2 Seconds (9.9-11.8) H 06/22/17 07:11 INR 2.24 (0.93-1.08) H 06/22/17 07:11 Attending/Attestation - Attestation I have personally seen and examined this patient.: Yes I have fully participated in the care of the patient.: Yes I have reviewed all pertinent clinical information, including history, physical exam and plan: Yes Notes (Text): 06/22/17 18:16 81 year old female with past medical history of DVT s/p IVC filter and paroxysmal afib who presented with bilateral lower extremity cellulitis. She was transferred to ICU for iv antibiotics and physical therapy rehabilitation. Continue with iv antibiotics as per ID. Podiatry is following patient as well. Initial blood culture showed coag neg staph (likely contaminate) and also strep viridians. However repeat blood cultures are negative to date. TTE was negative for vegetations as well. Discussed with ID who recommended to monitor for now as repeat cultures have been negative. Arterial dopplers was negative. Venous dopplers report is pending. She is on coumadin for history of DVT and paroxysmal afib. INR is 2.24 today so her coumadin dose will be decreased. Issue of medication compliance was discussed with patient. Yesterday she had transient tachycardia which improved with cardizem. Cardiology evaluation was requested. Continue to monitor platelets closely for thrombocytopenia. Indu Knapp MD Hospitalist.
[2017-06-23] MEDS: Vancomycin 1gm in NS 250ml 1 GM/250 ML BAG IVPB SCH (05:48)
[2017-06-23 09:42] LABS: INR 2.44 (0.93-1.08)
[2017-06-23] MEDS: Clotrimazole 1% Cream(30 gm) TOP SCH ×2 (10:17→17:31)
--- NOTE | 2017-06-23 11:13 | PN ---
DATE: 06/23/2017 SUBJECTIVE: The patient is in bed, in no acute distress, nontoxic. PHYSICAL EXAMINATION: VITAL SIGNS: Temperature is 98, blood pressure is 130/70, respiratory rate of 18. HEENT: Unremarkable. NECK: Supple. LUNGS: Have decreased breath sounds. HEART: Normal S1, S2. ABDOMEN: Examination is soft, nontender. LABORATORY DATA: Reveals the patient to have a white count of 3.9, hemoglobin of 10 and platelets of 74. Chemistry reveals a BUN of 27 and creatinine of 0.8. ASSESSMENT AND PLAN: This is an 81-year-old female who appears much, much older than stated age. He is chronically ill and cachectic with a BMI of 15, who was seen earlier this morning in Transitional Care and he has a history of bioprosthetic aortic valve replacement, deep venous thrombosis, history of inferior vena cava filter, atrial fibrillation, chronic anemia, bilateral lower extremity skin and soft tissue infection secondary to tenia and is day #8 of vancomycin. Would complete 7-10 days duration. The patient is tolerating medications well. Wilberto Adame MD
[2017-06-24] MEDS: Vancomycin 1gm in NS 250ml 1 GM/250 ML BAG IVPB SCH (05:21)
[2017-06-24 06:22] LABS: INR 2.37 (0.93-1.08)
--- NOTE | 2017-06-24 09:13 | CP.PCM.PN ---
<MarybelDanisn - Last Filed: 06/24/17 09:19> Subjective - Date & Time of Evaluation Date of Evaluation: 06/24/17 Time of Evaluation: 06:10 - Subjective Subjective: Patient seen and examined at bedside. Per nursing staff no acute events occurred. The patient reports feeling fine. The patient denies any chest pain, shortness of breath, lightheadedness, dizziness, sore throat, headaches, abdominal pain, constipation, diarrhea, or any other complaints. Objective - Vital Signs/Intake and Output Vital Signs (last 24 hours): Temp Pulse Resp BP Pulse Ox 98.2 F 76 18 100/59 L 97 06/24/17 06:00 06/24/17 06:00 06/24/17 06:00 06/24/17 06:00 06/24/17 06:00 - Medications Medications: Current Medications Acetaminophen (Tylenol 325mg Tab) 650 mg PO Q6H PRN; Protocol PRN Reason: Fever >100.4 F Last Admin: 06/24/17 05:25 Dose: 650 mg Clotrimazole (Lotrimin 1%) 0 gm TOP BID KHADRA PRN Reason: Protocol Last Admin: 06/23/17 17:31 Dose: 1 applic Famotidine (Pepcid) 20 mg PO 0600,1800 KHADRA PRN Reason: Protocol Last Admin: 06/24/17 05:26 Dose: 20 mg Vancomycin HCl (Vancomycin 1gm) 1 gm in 250 mls @ 167 mls/hr IVPB 0600 KHADRA PRN Reason: Protocol Stop: 06/28/17 07:30 Last Admin: 06/24/17 05:21 Dose: 167 mls/hr Mupirocin (Bactroban Ointment) 1 gm TOP BID KHADRA PRN Reason: Protocol Last Admin: 06/23/17 17:30 Dose: 1 applic Warfarin Sodium (Coumadin) 5 mg PO 1800 KHADRA PRN Reason: Protocol Last Admin: 06/23/17 17:31 Dose: 5 mg - Labs Labs: 06/22/17 07:11 06/22/17 07:11 PT 25.6 Seconds (9.9-11.8) H 06/24/17 05:45 INR 2.37 (0.93-1.08) H 06/24/17 05:45 - Head Exam Head Exam: ATRAUMATIC, NORMAL INSPECTION, NORMOCEPHALIC - Eye Exam Eye Exam: EOMI, Normal appearance, PERRL. absent: Periorbital tenderness Pupil Exam: NORMAL ACCOMODATION, PERRL. absent: Irregular, Unequal - ENT Exam ENT Exam: Mucous Membranes Moist, Normal Exam. absent: Normal Oropharynx, TM's Normal Bilaterally - Neck Exam Neck Exam: Normal Inspection. absent: Lymphadenopathy, Meningismus, Thyromegaly - Respiratory Exam Respiratory Exam: Clear to Ausculation Bilateral, NORMAL BREATHING PATTERN. absent: Chest Wall Tenderness, Prolonged Expiratory Phase, Respiratory Distress - Cardiovascular Exam Cardiovascular Exam: REGULAR RHYTHM, RRR, +S1, +S2. absent: Gallop, JVD, Rubs - GI/Abdominal Exam GI & Abdominal Exam: Soft, Normal Bowel Sounds. absent: Rigid, Tenderness, Hyperactive Bowel Sounds - Extremities Exam Extremities Exam: Full ROM. absent: Joint Swelling, Pedal Edema, Tenderness Additional comments: b/l lower extremity skin infection. - Neurological Exam Neurological Exam: Alert, Awake, CN II-XII Intact, Normal Gait, Oriented x3 - Psychiatric Exam Psychiatric exam: Normal Affect, Normal Mood. absent: Anxious, Depressed - Skin Skin Exam: Dry, Intact Assessment and Plan - Assessment and Plan (Free Text) Assessment: 81 year old female presenting with left leg pain & Cellulitis Plan: B/L Lower Extremity Cellulitus and fungal pedal infection Continue Vancomycin Continue Clotrimazole Cream. C/s Infectious Disease C/s Podiatry rec's appreciated. Surgical shoe's in place ECHO negative for vegetations Discharged to TCU. Dr. Pritchett made aware of clinical situation via phone. Patient expected to be discharged with home assistance. Social work consulted. Will f/u with rec's tomorrow. Chronic DVT of left leg Coumadin changed from 10mg to 5mg monitor with serial coag's. hest ct showed a 1.7x 1.2 cm hypodense nodular fluid collection and recommended a u/s followup. U/S was negative . Atrial Flutter Resolved after IVF were administered. Patient shows no atrial flutter on monitor. Will continue to monitor closely. Spoke with Dr. Pritchett who says the patient isn't on any anti-coagulation and has a history of non-compliance. Will discuss options with patients. Change Coumadin to 5mg. Most recent INR 2.37. consulted Cardiology for episode of Tachycardia. Follow up with rec's tomorrow. Pt remains asymptomatic Thrombocytopenia Patient has baseline thrombocytopenia, continue to trend. Consult if needed. No intervention at this time. Peripheral Arterial Disease Arterial doppler negative. US negative. Tylenol for pain control PPX PTX <RaSandrafrank Ward - Last Filed: 06/24/17 19:01> Objective - Vital Signs/Intake and Output Vital Signs (last 24 hours): Temp Pulse Resp BP Pulse Ox 98.3 F 98 H 18 101/52 L 99 06/24/17 16:26 06/24/17 16:26 06/24/17 16:26 06/24/17 16:26 06/24/17 16:26 - Medications Medications: Current Medications Acetaminophen (Tylenol 325mg Tab) 650 mg PO Q6H PRN; Protocol PRN Reason: Fever >100.4 F Last Admin: 06/24/17 05:25 Dose: 650 mg Clotrimazole (Lotrimin 1%) 0 gm TOP BID KHADRA PRN Reason: Protocol Last Admin: 06/24/17 18:34 Dose: 1 applic Famotidine (Pepcid) 20 mg PO 0600,1800 KHADRA PRN Reason: Protocol Last Admin: 06/24/17 18:36 Dose: 20 mg Vancomycin HCl (Vancomycin 1gm) 1 gm in 250 mls @ 167 mls/hr IVPB 0600 KHADRA PRN Reason: Protocol Stop: 06/28/17 07:30 Last Admin: 06/24/17 05:21 Dose: 167 mls/hr Mupirocin (Bactroban Ointment) 1 gm TOP BID KHADRA PRN Reason: Protocol Last Admin: 06/24/17 18:35 Dose: 1 applic Warfarin Sodium (Coumadin) 5 mg PO 1800 KHADRA PRN Reason: Protocol Last Admin: 06/24/17 18:35 Dose: Not Given - Labs Labs: 06/22/17 07:11 06/22/17 07:11 PT 25.6 Seconds (9.9-11.8) H 06/24/17 05:45 INR 2.37 (0.93-1.08) H 06/24/17 05:45 Attending/Attestation - Attestation I have personally seen and examined this patient.: Yes I have fully participated in the care of the patient.: Yes I have reviewed all pertinent clinical information, including history, physical exam and plan: Yes Notes (Text): 06/24/17 19:00 81 year old female with past medical history of DVT s/p IVC filter and paroxysmal afib who presented with bilateral lower extremity cellulitis. She was transferred to ICU for iv antibiotics and physical therapy rehabilitation. Continue with iv antibiotics as per ID. Podiatry is following patient as well. Initial blood culture showed coag neg staph (likely contaminate) and also strep viridians. However repeat blood cultures are negative to date. TTE was negative for vegetations as well. Discussed with ID who recommended to monitor for now as repeat cultures have been negative. Arterial dopplers was negative. Venous dopplers report is pending. She is on coumadin for history of DVT and paroxysmal afib. Issue of medication compliance was discussed with patient. Continue to monitor platelets closely for thrombocytopenia. Indu Knapp MD Hospitalist.
[2017-06-24] MEDS: Clotrimazole 1% Cream(30 gm) TOP SCH ×2 (10:22→18:34)
--- NOTE | 2017-06-24 11:27 | PN ---
DATE: 06/24/2017 SUBJECTIVE: The patient is in bed in no acute distress, nontoxic. PHYSICAL EXAMINATION: VITAL SIGNS: Temperature is 98, blood pressure is 100/59, respiratory rate of 18. HEENT: Unremarkable. NECK: Supple. LUNGS: Have decreased breath sounds. HEART: Normal S1, S2. ABDOMEN: Soft, nontender. LABORATORY EXAMINATION: Reveals a white count of 3.9, hemoglobin of 10, platelets of 74. Chemistries reveals a BUN of 27, creatinine of 0.8. ASSESSMENT AND PLAN: This is an 81-year-old female who appears much, much older than stated age, chronically ill, cachectic with a body mass of index of 15, seen earlier today. The patient with a history of bioprosthetic aortic valve replacement, deep venous thrombosis, history of inferior vena cava filter, atrial fibrillation, chronic anemia, bilateral lower extremity skin and soft tissue infection secondary to tenia and day number 9 of vancomycin, would complete 7 to 10 days. Review of orders confirms the patient vancomycin to be active and we will follow with you. Wilberto Adame MD
[2017-06-24 19:58] LABS: BASO # 0.04 K/mm3 (0.0-2.0); EOS # 0.1 (0.0-0.7); EOS % 3.3 % (1.5-5.0); GRAN # 2.57 (1.4-6.5); HEMATOCRIT 33.4 % (36.0-48.0); LYMPH # 0.9 (1.2-3.4); LYMPH % 21.9 % (22.0-35.0); MEAN CELL VOLUME 97.1 fl (80.0-105.0); MEAN CORPUSCULAR HEMOGLOBIN 29.9 pg (25.0-35.0); MEAN CORPUSCULAR HGB CONC 30.8 g/dl (31.0-37.0); MONO # 0.5 (0.1-0.6); MONO % 12.8 % (1.0-6.0); RED CELL DISTRIBUTION WIDTH 15.3 % (11.5-14.5); WHITE BLOOD COUNT 4.2 10^3/ul (4.5-11.0)
[2017-06-25] MEDS: Vancomycin 1gm in NS 250ml 1 GM/250 ML BAG IVPB SCH (05:09)
[2017-06-25 07:58] LABS: INR 1.79 (0.93-1.08)
[2017-06-25] MEDS: Clotrimazole 1% Cream(30 gm) TOP SCH ×2 (10:12→18:19)
--- NOTE | 2017-06-25 10:44 | CP.PCM.PCO ---
Physician Communication Note - Physician Communication Note Physician Communication Note: PGY4: Pt refused GI eval, does not want to be seen by us at this time.
--- NOTE | 2017-06-25 18:56 | CP.PCM.PN ---
Subjective - Date & Time of Evaluation Date of Evaluation: 06/25/17 Time of Evaluation: 13:05 - Subjective Subjective: Comfortable, not in distress, afebrile, improved pain in the legs. Objective - Vital Signs/Intake and Output Vital Signs (last 24 hours): Temp Pulse Resp BP Pulse Ox 98.6 F 81 18 112/61 98 06/25/17 06:00 06/25/17 06:00 06/25/17 06:00 06/25/17 06:00 06/25/17 06:00 Intake and Output: 06/25/17 06/25/17 06:59 18:59 Intake Total 600 Balance 600 - Medications Medications: Current Medications Acetaminophen (Tylenol 325mg Tab) 650 mg PO Q6H PRN; Protocol PRN Reason: Fever >100.4 F Last Admin: 06/24/17 05:25 Dose: 650 mg Clotrimazole (Lotrimin 1%) 0 gm TOP BID KHADRA PRN Reason: Protocol Last Admin: 06/25/17 10:12 Dose: 1 applic Famotidine (Pepcid) 20 mg PO 0600,1800 KHADRA PRN Reason: Protocol Last Admin: 06/25/17 05:14 Dose: 20 mg Vancomycin HCl (Vancomycin 1gm) 1 gm in 250 mls @ 167 mls/hr IVPB 0600 KHADRA PRN Reason: Protocol Stop: 06/28/17 07:30 Last Admin: 06/25/17 05:09 Dose: 167 mls/hr Mupirocin (Bactroban Ointment) 1 gm TOP BID KHADRA PRN Reason: Protocol Last Admin: 06/25/17 10:11 Dose: 1 applic Warfarin Sodium (Coumadin) 5 mg PO 1800 KHADRA PRN Reason: Protocol Last Admin: 06/24/17 18:35 Dose: Not Given - Labs Labs: 06/24/17 19:00 06/22/17 07:11 PT 19.3 Seconds (9.9-11.8) H 06/25/17 07:30 INR 1.79 (0.93-1.08) H 06/25/17 07:30 - Constitutional Appears: Non-toxic, No Acute Distress - Head Exam Head Exam: NORMAL INSPECTION - Neck Exam Neck Exam: Meningismus - Respiratory Exam Respiratory Exam: Decreased Breath Sounds - Cardiovascular Exam Cardiovascular Exam: +S1, +S2 - GI/Abdominal Exam GI & Abdominal Exam: Soft. absent: Tenderness Assessment and Plan - Assessment and Plan (Free Text) Plan: Assessment bilateral lower extemity xerosis with probably skin and skin structure infection with associated Strep viridans bacteremia and tinea pedis coagulase negative staph in one of 4 bottles, probably contamination bioprosthetic aortic valve replacement DVT S/P IVC filter placement paroxysmal atrial fibrillation chronic anemia left breast CA S/P left mastectomy Plan continue Vancomycin (day 10); repeat blood cx from 06/16 are negative; 2D echo is negative; will d/c antibiotics after today will continue to monitor clinically
[2017-06-26] MEDS: Vancomycin 1gm in NS 250ml 1 GM/250 ML BAG IVPB SCH (05:29)
[2017-06-26 09:30] LABS: BASO # 0.04 K/mm3 (0.0-2.0); EOS # 0.1 (0.0-0.7); EOS % 2.5 % (1.5-5.0); GRAN # 2.4 (1.4-6.5); HEMATOCRIT 33.8 % (36.0-48.0); LYMPH % 25.9 % (22.0-35.0); MEAN CELL VOLUME 94.9 fl (80.0-105.0); MEAN CORPUSCULAR HEMOGLOBIN 29.8 pg (25.0-35.0); MEAN CORPUSCULAR HGB CONC 31.4 g/dl (31.0-37.0); MEAN PLATELET VOLUME 9.7 fl (7.0-11.0); MONO # 0.4 (0.1-0.6); MONO % 9.6 % (1.0-6.0); RED CELL DISTRIBUTION WIDTH 14.6 % (11.5-14.5); WHITE BLOOD COUNT 3.9 10^3/ul (4.5-11.0)
[2017-06-26 10:09] LABS: INR 1.35 (0.93-1.08)
[2017-06-26] MEDS: Clotrimazole 1% Cream(30 gm) TOP SCH ×2 (10:41→17:44)
--- NOTE | 2017-06-26 11:03 | CP.PCM.PN ---
<MarybelDanisn - Last Filed: 06/26/17 16:28> Subjective - Date & Time of Evaluation Date of Evaluation: 06/26/17 Time of Evaluation: 09:01 - Subjective Subjective: Patient was seen and examined at bedside. Per nursing there were no acute events overnight . The patients denies any chest pain, shortness of breath, nausea, vomiting, abdominal pain, lightheadedness ,dizziness, sore throat, fevers, chills, palpitations, or any other complaints. Objective - Vital Signs/Intake and Output Vital Signs (last 24 hours): Temp Pulse Resp BP Pulse Ox 98.3 F 91 H 15 107/57 L 99 06/25/17 16:00 06/25/17 16:00 06/25/17 16:00 06/25/17 16:00 06/25/17 10:00 - Medications Medications: Current Medications Acetaminophen (Tylenol 325mg Tab) 650 mg PO Q6H PRN; Protocol PRN Reason: Fever >100.4 F Last Admin: 06/24/17 05:25 Dose: 650 mg Clotrimazole (Lotrimin 1%) 0 gm TOP BID KHADRA PRN Reason: Protocol Last Admin: 06/26/17 10:41 Dose: 1 applic Famotidine (Pepcid) 20 mg PO 0600,1800 KHADRA PRN Reason: Protocol Last Admin: 06/26/17 05:30 Dose: 20 mg Mupirocin (Bactroban Ointment) 1 gm TOP BID KHADRA PRN Reason: Protocol Last Admin: 06/26/17 10:41 Dose: 1 applic Warfarin Sodium (Coumadin) 5 mg PO 1800 KHADRA PRN Reason: Protocol Last Admin: 06/24/17 18:35 Dose: Not Given - Labs Labs: 06/26/17 09:20 06/22/17 07:11 PT 14.6 Seconds (9.9-11.8) H 06/26/17 09:45 INR 1.35 (0.93-1.08) H 06/26/17 09:45 - Head Exam Head Exam: ATRAUMATIC, NORMAL INSPECTION, NORMOCEPHALIC - Eye Exam Eye Exam: EOMI, Normal appearance, PERRL. absent: Periorbital tenderness Pupil Exam: NORMAL ACCOMODATION, PERRL. absent: Irregular, Unequal - ENT Exam ENT Exam: Mucous Membranes Moist, Normal Exam. absent: Normal Oropharynx, TM's Normal Bilaterally - Neck Exam Neck Exam: Normal Inspection. absent: Lymphadenopathy, Thyromegaly - Respiratory Exam Respiratory Exam: Clear to Ausculation Bilateral, NORMAL BREATHING PATTERN. absent: Chest Wall Tenderness, Prolonged Expiratory Phase, Respiratory Distress - Cardiovascular Exam Cardiovascular Exam: REGULAR RHYTHM, RRR, +S1, +S2. absent: Gallop, Rubs - GI/Abdominal Exam GI & Abdominal Exam: Soft, Normal Bowel Sounds. absent: Rigid, Tenderness, Hyperactive Bowel Sounds - Extremities Exam Extremities Exam: Full ROM, Normal Inspection. absent: Joint Swelling, Pedal Edema, Tenderness - Back Exam Back Exam: NORMAL INSPECTION. absent: CVA tenderness (R), Full ROM, paraspinal tenderness, rash noted - Neurological Exam Neurological Exam: Alert, Awake, CN II-XII Intact, Normal Gait. absent: Oriented x3 - Psychiatric Exam Psychiatric exam: Normal Affect, Normal Mood - Skin Skin Exam: Dry, Intact. absent: Mottled Assessment and Plan - Assessment and Plan (Free Text) Assessment: 81 year old female presenting with left leg pain & Cellulitis Plan: B/L Lower Extremity Cellulitus and fungal pedal infection Continue Vancomycin Continue Clotrimazole Cream. C/s Infectious Disease C/s Podiatry rec's appreciated. Surgical shoe's in place ECHO negative for vegetations Patient expected to be discharged with home assistance. Social work consulted. Will f/u with rec's. Multiple attempts to reach the son with no answer. Will try again later on today. Patient expected to be d/c'ed on 06/28/17. Chronic DVT of left leg Coumadin held due to BRBPR. Hemoglobin stable (10.6). HASBLED score of 3. Patient has a 5.8% risk for bleed. monitor with serial coag's. Coumadin will be held indefinitely pending conversation with the son to better asses patient's compliance. heat ct showed a 1.7x 1.2 cm hypodense nodular fluid collection and recommended a u/s followup. U/S was negative . BRBPR Patient had one witnessed episode of BRBPR by nursing staff on 06/24/17. Coumadin was held as a result. GI consulted. Patient refused GI consult and doesn't want anymore intervention done. Atrial Flutter Resolved after IVF were administered. Patient shows no atrial flutter on monitor. Will continue to monitor closely. Spoke with Dr. Pritchett who says the patient isn't on any anti-coagulation and has a history of non-compliance. Will discuss options with patients. Coumadin held 2/2 to BRBPR, dementia, and non-compliance. Will consider Aspirin as alternative. consulted Cardiology for episode of Tachycardia. Follow up with rec's tomorrow. Pt remains asymptomatic Thrombocytopenia Patient has baseline thrombocytopenia, continue to trend. Consult if needed. No intervention at this time. Peripheral Arterial Disease Arterial doppler negative. Tylenol for pain control PPX PTX <[employer] [place] - Last Filed: 06/27/17 15:11> Objective - Vital Signs/Intake and Output Vital Signs (last 24 hours): Temp Pulse Resp BP Pulse Ox 98.3 F 82 14 96/61 L 100 06/27/17 06:00 06/27/17 06:00 06/27/17 06:00 06/27/17 06:00 06/27/17 06:00 Intake and Output: 06/27/17 06/27/17 06:59 18:59 Intake Total 240 Balance 240 - Medications Medications: Current Medications Acetaminophen (Tylenol 325mg Tab) 650 mg PO Q6H PRN; Protocol PRN Reason: Fever >100.4 F Last Admin: 06/27/17 00:51 Dose: 650 mg Aspirin (Ecotrin) 81 mg PO 0800 KHADRA Clotrimazole (Lotrimin 1%) 0 gm TOP BID KHADRA PRN Reason: Protocol Last Admin: 06/27/17 11:18 Dose: 1 applic Famotidine (Pepcid) 20 mg PO 0600,1800 KHADRA PRN Reason: Protocol Last Admin: 06/27/17 05:21 Dose: 20 mg Mupirocin (Bactroban Ointment) 1 gm TOP BID KHADRA PRN Reason: Protocol Last Admin: 06/27/17 11:18 Dose: 1 applic - Labs Labs: 06/26/17 09:20 06/22/17 07:11 PT 14.6 Seconds (9.9-11.8) H 06/26/17 09:45 INR 1.35 (0.93-1.08) H 06/26/17 09:45 Attending/Attestation - Attestation I have personally seen and examined this patient.: Yes I have fully participated in the care of the patient.: Yes I have reviewed all pertinent clinical information, including history, physical exam and plan: Yes Notes (Text): 06/27/17 14:59 Patient was seen and examined with medical records tech. Patient is not on any antibiotics at this time, antibiotics has been discontinued. Patient hemoglobin is stable.She has refused GI work up for possible Lower GI bleeding.She was constipated at that time.Hemoglobin is stable.Last Colonoscopy was unremarkable.Patient has history of Femoral Vein DVT.We will start on Apixiban 2.5 mg PO BID which has low risk of bleeding compared to Warfarin. .We will monitor CBC.
[2017-06-27] MEDS: Clotrimazole 1% Cream(30 gm) TOP SCH ×2 (11:18→17:52)
[2017-06-28 07:51] LABS: BASO # 0.04 K/mm3 (0.0-2.0); EOS # 0.1 (0.0-0.7); EOS % 3.3 % (1.5-5.0); GRAN # 2.59 (1.4-6.5); GRAN % 61.9 % (50.0-68.0); HEMATOCRIT 32.3 % (36.0-48.0); LYMPH # 0.9 (1.2-3.4); LYMPH % 21.8 % (22.0-35.0); MEAN CORPUSCULAR HGB CONC 31.6 g/dl (31.0-37.0); MEAN PLATELET VOLUME 9.4 fl (7.0-11.0); MONO # 0.5 (0.1-0.6); RED CELL DISTRIBUTION WIDTH 14.5 % (11.5-14.5); WHITE BLOOD COUNT 4.2 10^3/ul (4.5-11.0)
[2017-06-28] MEDS: Clotrimazole 1% Cream(30 gm) TOP SCH (10:06)
[2017-06-28 10:59] VITALS: O2SAT 97
[2017-06-28 14:17] VITALS: BP 100/61; PULSE 61; RESP 18; TEMP 98.5
--- NOTE | 2017-06-28 16:40 | CP.PCM.DIS ---
<MarybelMillerton - Last Filed: 06/28/17 18:08> Provider - Provider Date of Admission: 06/20/17 10:21 Attending physician: Indu Knapp MD Primary care physician: Maximino Pritchett MD Time Spent in preparation of Discharge (in minutes): 45 Hospital Course - Lab Results Lab Results: Most Recent Lab Values WBC 4.2 10^3/ul (4.5-11.0) L 06/28/17 07:45 RBC 3.40 10^6/uL (3.5-6.1) L 06/28/17 07:45 Hgb 10.2 g/dL (12.0-16.0) L 06/28/17 07:45 Hct 32.3 % (36.0-48.0) L 06/28/17 07:45 MCV 95.0 fl (80.0-105.0) 06/28/17 07:45 MCH 30.0 pg (25.0-35.0) 06/28/17 07:45 MCHC 31.6 g/dl (31.0-37.0) 06/28/17 07:45 RDW 14.5 % (11.5-14.5) 06/28/17 07:45 Plt Count 108 10^3/uL (120.0-450.0) L 06/28/17 07:45 MPV 9.4 fl (7.0-11.0) 06/28/17 07:45 Gran % 61.9 % (50.0-68.0) 06/28/17 07:45 Lymph % (Auto) 21.8 % (22.0-35.0) L 06/28/17 07:45 Mcdonough % (Auto) 12.0 % (1.0-6.0) H 06/28/17 07:45 Eos % (Auto) 3.3 % (1.5-5.0) 06/28/17 07:45 Baso % (Auto) 1.0 % (0.0-3.0) 06/28/17 07:45 Gran # 2.59 (1.4-6.5) 06/28/17 07:45 Lymph # 0.9 (1.2-3.4) L 06/28/17 07:45 Mcdonough # 0.5 (0.1-0.6) 06/28/17 07:45 Eos # 0.1 (0.0-0.7) 06/28/17 07:45 Baso # 0.04 K/mm3 (0.0-2.0) 06/28/17 07:45 PT 14.6 Seconds (9.9-11.8) H 06/26/17 09:45 INR 1.35 (0.93-1.08) H 06/26/17 09:45 Sodium 141 mmol/L (132-148) 06/22/17 07:11 Potassium 4.7 mmol/L (3.6-5.0) 06/22/17 07:11 Chloride 106 mmol/L (95-110) 06/22/17 07:11 Carbon Dioxide 31 mmol/L (21-33) 06/22/17 07:11 Anion Gap 9 (10-20) L 06/22/17 07:11 BUN 27 mg/dL (7-21) H 06/22/17 07:11 Creatinine 0.8 mg/dL (0.7-1.2) 06/22/17 07:11 Est GFR ( Amer) > 60 06/22/17 07:11 Est GFR (Non-Af Amer) > 60 06/22/17 07:11 Random Glucose 86 mg/dL (70-110) 06/22/17 07:11 Calcium 8.8 mg/dL (8.4-10.5) 06/22/17 07:11 - Hospital Course Hospital Course: Patient is an 81 year old female with a past medical history of DVT s/p IVC filter,bioprosthetic aortic valve replacement, paroxysmal atrial fibrillation, chronic anemia, thrombocytopenia, left breast ca s/p L mastectomy, [place] [facility] [place] who was seen in office and sent by her PMD Dr. Pritchett for evaluation of feet and tachycardia. Patient states she has not taken any of her medications for several months. Patient was recently treated for bilateral cellulitis and fungal infection and discharged to TCU for further PT sessions and antibiotics. Patient was seen Patient denies shortness of breath, chest pain, abdominal pain, dysuria, dizziness, headache. While in TCU the patient was started back on Coumadin. However soon after the patient had one witnessed episode of bright red blood per rectum. The patient was examined and rectal exam was negative. The patient's Coumadin was stopped and GI was consulted. The patient refused further workup. Patient's hemoglobin and hematocrit were monitored with cbc's. Dr. Pritchett was contacted who told me about the patient 's history of non-compliance with her Coumadin. It was decided she would stop the Coumadin indefinitely and take Aspirin 81mg Daily instead due to her history with medication compliance. The patient was discharged back to home. Discharge Exam - Head Exam Head Exam: ATRAUMATIC, NORMAL INSPECTION, NORMOCEPHALIC - Eye Exam Eye Exam: EOMI, Normal appearance, PERRL. absent: Periorbital tenderness Pupil Exam: NORMAL ACCOMODATION, PERRL. absent: Irregular, Unequal - ENT Exam ENT Exam: Mucous Membranes Moist, Normal Exam, Normal Oropharynx. absent: TM's Normal Bilaterally - Neck Exam Neck exam: Normal Inspection - Respiratory Exam Respiratory Exam: Clear to PA & Lateral, NORMAL BREATHING PATTERN, UNREMARKABLE. absent: Decreased Breath Sounds, Prolonged Expiratory Phase, Rales, Rhonchi - Cardiovascular Exam Cardiovascular Exam: REGULAR RHYTHM, RRR, +S1, +S2. absent: Gallop, Rubs - GI/Abdominal Exam GI & Abdominal Exam: Normal Bowel Sounds, Unremarkable. absent: Distended, Firm , Hypoactive Bowel Sounds, Organomegaly - Extremities Exam Extremities exam: full ROM Additional comments: Fungal infection of the lower extremities bilaterally. - Back Exam Back exam: NORMAL INSPECTION. absent: CVA tenderness (L), CVA tenderness (R), paraspinal tenderness - Neurological Exam Neurological exam: Alert, CN II-XII Intact, Oriented x3, Reflexes Normal - Psychiatric Exam Psychiatric exam: Normal Affect, Normal Mood - Skin Skin Exam: Dry, Intact Discharge Plan - Discharge Medications Prescriptions: Aspirin [Ecotrin] 81 mg PO DAILY #30 tabec - Follow Up Plan Condition: GOOD Disposition: HOME/ ROUTINE Instructions: Atrial Fibrillation (DC), Deep Venous Thrombosis (DC), Heart Block (DC), Complex Regional Pain Syndrome (DC), Anemia (DC) Additional Instructions: Patient advised to follow up with PMD within on week of discharge. Patient advised to return to emergency department for any new or worsening symptoms. Referrals: Maximino Pritchett MD [Primary Care Provider] - <Irfan,Mohammad - Last Filed: 06/29/17 12:39> Provider - Provider Date of Admission: 06/20/17 10:21 Attending physician: Indu Knapp MD Primary care physician: Maximino Pritchett MD Hospital Course - Lab Results Lab Results: Most Recent Lab Values WBC 4.2 10^3/ul (4.5-11.0) L 06/28/17 07:45 RBC 3.40 10^6/uL (3.5-6.1) L 06/28/17 07:45 Hgb 10.2 g/dL (12.0-16.0) L 06/28/17 07:45 Hct 32.3 % (36.0-48.0) L 06/28/17 07:45 MCV 95.0 fl (80.0-105.0) 06/28/17 07:45 MCH 30.0 pg (25.0-35.0) 06/28/17 07:45 MCHC 31.6 g/dl (31.0-37.0) 06/28/17 07:45 RDW 14.5 % (11.5-14.5) 06/28/17 07:45 Plt Count 108 10^3/uL (120.0-450.0) L 06/28/17 07:45 MPV 9.4 fl (7.0-11.0) 06/28/17 07:45 Gran % 61.9 % (50.0-68.0) 06/28/17 07:45 Lymph % (Auto) 21.8 % (22.0-35.0) L 06/28/17 07:45 Mcdonough % (Auto) 12.0 % (1.0-6.0) H 06/28/17 07:45 Eos % (Auto) 3.3 % (1.5-5.0) 06/28/17 07:45 Baso % (Auto) 1.0 % (0.0-3.0) 06/28/17 07:45 Gran # 2.59 (1.4-6.5) 06/28/17 07:45 Lymph # 0.9 (1.2-3.4) L 06/28/17 07:45 Mcdonough # 0.5 (0.1-0.6) 06/28/17 07:45 Eos # 0.1 (0.0-0.7) 06/28/17 07:45 Baso # 0.04 K/mm3 (0.0-2.0) 06/28/17 07:45 PT 14.6 Seconds (9.9-11.8) H 06/26/17 09:45 INR 1.35 (0.93-1.08) H 06/26/17 09:45 Sodium 141 mmol/L (132-148) 06/22/17 07:11 Potassium 4.7 mmol/L (3.6-5.0) 06/22/17 07:11 Chloride 106 mmol/L (95-110) 06/22/17 07:11 Carbon Dioxide 31 mmol/L (21-33) 06/22/17 07:11 Anion Gap 9 (10-20) L 06/22/17 07:11 BUN 27 mg/dL (7-21) H 06/22/17 07:11 Creatinine 0.8 mg/dL (0.7-1.2) 06/22/17 07:11 Est GFR ( Amer) > 60 06/22/17 07:11 Est GFR (Non-Af Amer) > 60 06/22/17 07:11 Random Glucose 86 mg/dL (70-110) 06/22/17 07:11 Calcium 8.8 mg/dL (8.4-10.5) 06/22/17 07:11 Attending/Attestation - Attestation I have personally seen and examined this patient.: Yes I have fully participated in the care of the patient.: Yes I have reviewed all pertinent clinical information, including history, physical exam and plan: Yes Notes (Text): 06/29/17 12:39 Patient was seen and examined with medical supply technician. 81 year old female with past medical history of DVT s/p IVC filter and paroxysmal afib who presented with bilateral lower extremity cellulitis. . Initial blood culture showed coagulase negative staph (likely contaminate) and also strep viridians. However repeat blood cultures are negative to date. TTE was negative for vegetations as well She was transferred to TCU for physical therapy rehabilitation. Patient had episode of lower GI bleeding ? in TCU .Hemoglobin is stable. She has refused GI work up for possible Lower GI bleeding.She was constipated at that time.Hemoglobin is stable.Last Colonoscopy was unremarkable.Patient has history of Femoral Vein DVT and Proxysmal AF.She is SP IVC filter, Due to History of Dementia, risk of fall and concern for GI bleeding, will not restart warfarin and will continue with aspirin .This was also discussed with Patient PMD Dr.Mitchel Bear. Prognosis is guarded 06/29/17 12:39
== END 2017-06-28 15:52 | disposition home or self-care (01) | DRG 603 ==
LOC: TRCU 10:21
PROVIDERS: ADMIT Internal Medicine; ATTEND Internal Medicine
PROC: F07Z9FZ Gait Training/Functional Ambulation Treatment using Assistive, Adaptive, Supportive or Protective Equipment (ICD-10-PCS; principal; 2017-06-21)
PROC: F07M6ZZ Therapeutic Exercise Treatment of Musculoskeletal System - Whole Body (ICD-10-PCS; 2017-06-21)
PROC: F08Z2ZZ Grooming/Personal Hygiene Treatment (ICD-10-PCS; 2017-06-22)
PROC: F08Z1ZZ Dressing Techniques Treatment (ICD-10-PCS; 2017-06-22)
PROC: F08Z0ZZ Bathing/Showering Techniques Treatment (ICD-10-PCS; 2017-06-22)
DX: L03.115 Cellulitis of right lower limb (principal); R64 Cachexia; I48.92 Unspecified atrial flutter; D69.6 Thrombocytopenia, unspecified; R78.81 Bacteremia; I82.502 Chronic embolism and thrombosis of unspecified deep veins of left lower extremity; I48.0 Paroxysmal atrial fibrillation; I10 Essential (primary) hypertension; B35.3 Tinea pedis; K62.5 Hemorrhage of anus and rectum; Z68.1 Body mass index [BMI] 19.9 or less, adult; L03.116 Cellulitis of left lower limb; Z79.01 Long term (current) use of anticoagulants; Z79.82 Long term (current) use of aspirin; Z85.3 Personal history of malignant neoplasm of breast; Z87.440 Personal history of urinary (tract) infections; Z90.12 Acquired absence of left breast and nipple; D64.9 Anemia, unspecified; B95.4 Other streptococcus as the cause of diseases classified elsewhere; Z95.3 Presence of xenogenic heart valve; Z91.14 Patient's other noncompliance with medication regimen; Z91.19 Patient's noncompliance with other medical treatment and regimen

== ENCOUNTER 2017-07-22 20:39 | Emergency (ER) | payer MEDICARE, BC ==
[2017-07-22 20:40] VITALS: BMI 15.7
[2017-07-22 21:11] VITALS: TEMP 97.6
[2017-07-22] MEDS ORDERED: Oxymetazoline 0.05% Nasal Spray (30 ml) NS STA (21:22)
[2017-07-22] MEDS ORDERED: Lidocaine 2% Inj (20ml) SC STA (21:22)
--- NOTE | 2017-07-22 21:23 | ED PDOC ---
Arrival/HPI - General Chief Complaint: ENT Problem Time Seen by Provider: 07/22/17 20:44 Historian: Patient - History of Present Illness Narrative History of Present Illness (Text): 07/22/17 21:17 An 81 year old female, whose past medical history includes DVT with IVF filter, Paroxysmal A.Fib on Coumadin, Chronic Anemia, Thrombocytopenia, Left Breast CA with L Mastectomy, presents to the emergency department with a complaint of epistaxis prior to arrival. The patient states that she woke up with the bleeding.She denies fevers, chills, headache, dizziness, chest pain, shortness of breath, dyspnea on exertion, cough, abdominal pain, nausea, vomiting, diarrhea, back pain, neck pain, urinary/bowel changes, or any other complaint. PMD: Dr. Pritchett Time/Duration: Other (Today) Symptom Onset: Sudden Symptom Course: Unchanged Activities at Onset: Rest, Light Context: Home Past Medical History - Provider Review Nursing Documentation Reviewed: Yes - Infectious Disease Hx of Infectious Diseases: None - Tetanus Immunization Tetanus Immunization: Unknown - Reproductive Menopause: No - Cardiac Hx Cardiac Disorders: Yes (Afib) Hx Hypertension: Yes - Pulmonary Hx Respiratory Disorders: No - Neurological Hx Neurological Disorder: No - HEENT Hx HEENT Disorder: No - Renal Hx Renal Disorder: No - Endocrine/Metabolic Hx Endocrine Disorders: No - Hematological/Oncological Hx Blood Disorders: Yes (thrombocytopenia) Hx Anemia: Yes (blood transfusion) Hx Cancer: Yes (left breast ca with lymph nodes) Hx Chemotherapy: (pt denies chemo and radiation) - Integumentary Hx Dermatological Disorder: Yes Other/Comment: cellulitis. ble +1 edema - Musculoskeletal/Rheumatological Hx Falls: No - Gastrointestinal Hx Gastrointestinal Disorders: Yes (HX GI BLEED, weight loss) - Genitourinary/Gynecological Hx Genitourinary Disorders: Yes Hx Urinary Tract Infection: Yes - Psychiatric Hx Psychophysiologic Disorder: No Hx Substance Use: No - Surgical History Hx Mastectomy: Yes (LEFT) Hx Open Heart Surgery: Yes Hx Valve Replacement: Yes Other/Comment: IVC FILTER - Anesthesia Hx Anesthesia: Yes Hx Anesthesia Reactions: No Hx Malignant Hyperthermia: No - Suicidal Assessment Feels Threatened In Home Enviroment: No Family/Social History - Physician Review Nursing Documentation Reviewed: Yes Family/Social History: No Known Family HX Smoking Status: Never Smoked Hx Alcohol Use: No Hx Substance Use: No Hx Substance Use Treatment: No Allergies/Home Meds Allergies/Adverse Reactions: Allergies No Known Allergies Allergy (Verified 07/22/17 20:44) Review of Systems - Physician Review All systems were reviewed & negative as marked: Yes - Review of Systems Constitutional: absent: Fevers, Night Sweats ENT: Epistaxis. absent: Sore Throat Respiratory: absent: SOB, Cough Cardiovascular: absent: Chest Pain, BECKER Gastrointestinal: absent: Abdominal Pain, Stool Changes, Diarrhea, Nausea, Vomiting Genitourinary Female: absent: Urine Output Changes Musculoskeletal: absent: Back Pain, Neck Pain Neurological: absent: Headache, Dizziness Physical Exam Vital Signs Reviewed: Yes Vital Signs Temp Pulse Resp BP Pulse Ox 07/22/17 21:11 97.6 F 86 18 133/68 100 Temperature: Afebrile Blood Pressure: Normal Pulse: Regular Respiratory Rate: Normal Appearance: Positive for: Well-Appearing, Non-Toxic, Comfortable Pain Distress: None Mental Status: Positive for: Alert and Oriented X 3 - Systems Exam Head: Present: Atraumatic, Normocephalic Pupils: Present: PERRL Extroacular Muscles: Present: EOMI Conjunctiva: Present: Normal Mouth: Present: Moist Mucous Membranes Nose (Internal): No: No Active Bleeding (Bright red blood in right nare. ) Neck: Present: Normal Range of Motion Respiratory/Chest: Present: Clear to Auscultation, Good Air Exchange. No: Respiratory Distress, Accessory Muscle Use Cardiovascular: Present: Regular Rate and Rhythm, Normal S1, S2. No: Murmurs Abdomen: Present: Normal Bowel Sounds. No: Tenderness, Distention, Peritoneal Signs Back: Present: Normal Inspection Upper Extremity: Present: Normal Inspection. No: Cyanosis, Edema Lower Extremity: Present: Edema Neurological: Present: GCS=15, CN II-XII Intact, Speech Normal Skin: Present: Warm, Dry, Normal Color. No: Rashes Psychiatric: Present: Alert, Oriented x 3, Normal Insight, Normal Concentration Medical Decision Making ED Course and Treatment: 07/22/17 21:28 Impression: An 81 year old female presents to the emergency department with epistaxis. Plan: -- Labs -- Afrin and Lidocaine -- Reassess and disposition Prior Visits: Notes and results from previous visits were reviewed. Patient was last seen in the emergency department on 06/14/17. Patient was seen in the emergency department with a complaint of palpiation. The patient was hospitalized. Progress Notes: 07/22/17 22:52 Cotton soaked in 1ml Lidocaine 2% without epi and Afrin [place]. Placed in right nare. After 30 minutes i revaluated and there was some anterior nasal bleeding still noted. No posterior nose bleed. Used 4 size anterior nasal packing to pack right nare. Sterile water used and inflated cuff. Patient tolerated procedure well. Watched in the ED for an hour with no bleeding. labs reviewed. Case discussed with Dr. Zeng who will see her in his office in 1-2days. Discussed case with son, Santosh, who will come pick her up. He is aware she needs to take antibiotics as discussed and to also make sure she sees Dr. Zeng in 1-2days. Advised to return to the ED if symptoms persist, lightheadedness, dizziness or any other concern. - Lab Interpretations Lab Results: 07/22/17 21:40 07/22/17 21:40 Lab Results 07/22/17 21:40: Sodium 142, Potassium 4.1, Chloride 107, Carbon Dioxide 33, Anion Gap 6 L, BUN 16, Creatinine 0.7, Est GFR ( Amer) > 60, Est GFR (Non -Af Amer) > 60, Random Glucose 82, Calcium 8.9 07/22/17 21:40: PT 25.8 H, INR 2.33 H, APTT 34.7 07/22/17 21:40: WBC 3.4 L, RBC 3.44 L, Hgb 10.3 L, Hct 33.5 L, MCV 97.4, MCH 29.9, MCHC 30.7 L, RDW 14.6 H, Plt Count 76 L, MPV 9.0, Gran % 49.1 L, Lymph % ( Auto) 31.7, Clarke % (Auto) 12.8 H, Eos % (Auto) 5.8 H, Baso % (Auto) 0.6, Gran # 1.69, Lymph # 1.1 L, Clarke # 0.4, Eos # 0.2, Baso # 0.02 I have reviewed the lab results: Yes - Medication Orders Current Medication Orders: Discontinued Medications Amoxicillin/Clavulanate Potassium (Augmentin 875 Mg-125 Mg Tab) 1 tab PO STAT STA PRN Reason: Protocol Stop: 07/22/17 22:13 Lidocaine HCl (Lidocaine 2% 20ml Vial) 0 ml SC ONCE STA Stop: 07/22/17 21:23 Oxymetazoline HCl (Afrin 0.05%) 0 ml NS STAT STA Stop: 07/22/17 21:23 Last Admin: 07/22/17 21:34 Dose: 1 spr Comments: to each nostril - Scribe Statement The provider has reviewed the documentation as recorded by the Damonibe Claudia Mei Provider Scribe Attestation: All medical record entries made by the Scribe were at my direction and personally dictated by me. I have reviewed the chart and agree that the record accurately reflects my personal performance of the history, physical exam, medical decision making, and the department course for this patient. I have also personally directed, reviewed, and agree with the discharge instructions and disposition. Disposition/Present on Arrival - Present on Arrival Any Indicators Present on Arrival: No History of DVT/PE: No History of Uncontrolled Diabetes: No Urinary Catheter: No History of Decub. Ulcer: No History Surgical Site Infection Following: None - Disposition Have Diagnosis and Disposition been Completed?: Yes Diagnosis: Nasal bleeding Disposition: HOME/ ROUTINE Disposition Time: 22:56 Patient Plan: Discharge Patient Problems: Current Active Problems Problem Status Onset Nasal bleeding Acute Condition: IMPROVED Discharge Instructions (ExitCare): Nosebleed (ED) Additional Instructions: Ms Velarde, thank you for letting us take care of you today. Your provider was Dr. Hdez. You were treated for Nose Bleed. The emergency medical care you received today was directed at your acute symptoms. If you were prescribed any medication, please fill it and take as directed. It may take several days for your symptoms to resolve. Return to the Emergency Department if your symptoms worsen, do not improve, or if you have any other problems. MAKE SURE TO CALL AND FOLLOW UP WITH DR. ZENG, ENT SPECIALIST, IN 1-2DAYS. Please contact your doctor or call one of the physicians/clinics you have been referred to that are listed on the Patient Visit Information form that is included in your discharge packet. Bring any paperwork you were given at discharge with you along with any medications you are taking to your follow up visit. Our treatment cannot replace ongoing medical care by a primary care provider (PCP) outside of the emergency department. Thank you for allowing the [facility] team to be part of your care today. If you had an X-Ray or CT scan: A Radiologist will review the ED reading if any change in treatment is needed we will contact you. If you had a blood, urine, or wound culture: It will take several days for the results, if any change in treatment is needed we will contact you. If you had an STI test: It will take 48 hours for the results. Please call after 1 week if you have not heard back. Prescriptions: Amoxicillin/Clavulanate [Augmentin 875 MG-125 MG] 1 tab PO BID #14 tab Referrals: Chente SLATER,MD Kamar [Medical Doctor] - Follow up with primary Maximino Pritchett MD [Primary Care Provider] - Follow up with primary Forms: [employer] (Hungarian)
[2017-07-22 21:48] LABS: BASO # 0.02 K/mm3 (0.0-2.0); BASO % 0.6 % (0.0-3.0); EOS # 0.2 (0.0-0.7); EOS % 5.8 % (1.5-5.0); GRAN # 1.69 (1.4-6.5); GRAN % 49.1 % (50.0-68.0); HEMATOCRIT 33.5 % (36.0-48.0); LYMPH # 1.1 (1.2-3.4); LYMPH % 31.7 % (22.0-35.0); MEAN CELL VOLUME 97.4 fl (80.0-105.0); MEAN CORPUSCULAR HEMOGLOBIN 29.9 pg (25.0-35.0); MEAN CORPUSCULAR HGB CONC 30.7 g/dl (31.0-37.0); MONO # 0.4 (0.1-0.6); MONO % 12.8 % (1.0-6.0); RED CELL DISTRIBUTION WIDTH 14.6 % (11.5-14.5); WHITE BLOOD COUNT 3.4 10^3/ul (4.5-11.0)
[2017-07-22 21:58] LABS: BLOOD UREA NITROGEN 16 mg/dL (7-21); CALCIUM 8.9 mg/dL (8.4-10.5); CARBON DIOXIDE 33 mmol/L (21-33); CHLORIDE 107 mmol/L (98-107); GFR AFRICAN-AMERICAN > 60; GLUCOSE,RANDOM 82 mg/dL (70-110); POTASSIUM 4.1 mmol/L (3.6-5.0); SODIUM 142 mmol/L (132-148)
[2017-07-22 22:02] LABS: INR 2.33 (0.93-1.08); PARTIAL THROMBOPLASTIN TIME 34.7 Seconds (25.1-36.5)
[2017-07-22] MEDS ORDERED: Amoxicillin-Clav 875-125 mg Tab PO STA (22:12)
[2017-07-22 23:00] VITALS: BP 119/55; PULSE 83; RESP 16; O2SAT 98
== END 2017-07-22 23:01 | disposition home or self-care (01) ==
LOC: ED 20:39
DX: R04.0 Epistaxis (principal); I10 Essential (primary) hypertension; I48.0 Paroxysmal atrial fibrillation; Z79.01 Long term (current) use of anticoagulants; Z85.3 Personal history of malignant neoplasm of breast